=== PATIENT | female | born 1950 | race Caucasian/White ===

== ENCOUNTER 2017-05-12 13:50 | Emergency (ER) | payer MEDICARE ==
[2017-05-12] MEDS ORDERED: NS 0.9% 1000 ML* 1,000 ML IV SCH (15:00)
[2017-05-12 15:13] LABS: Hematocrit 41 % (35-47); Hemoglobin 13.6 g/dl (12.0-16.0); Mean Corpuscular HGB Conc 34 g/dl (31-36); Mean Corpuscular Hemoglobin 29 pg (27-31); Mean Corpuscular Volume 85 fL (80-97); Mean Platelet Volume 10 um3 (7.4-10.4); Red Blood Count 4.77 10^6/ul (4.0-5.4); Red Cell Distribution Width 15 % (10.5-15); White Blood Count 8.5 10^3/ul (3.5-10.8)
[2017-05-12 15:32] LABS: Troponin I 0.03 ng/mL (<0.04)
[2017-05-12 15:33] LABS: Albumin 4.1 g/dL (3.2-5.2); BUN/Creatinine Ratio 15.7 (8-20); C Reactive Protein 3.81 mg/L (< 5.00); Calcium 10.3 mg/dL (8.6-10.3); EGFR African American 88.2 (>60); EGFR Non-African American 68.6 (>60); Globulin 2.7 g/dL (2-4); Magnesium 2.3 mg/dL (1.9-2.7); Potassium 3.6 mmol/L (3.5-5.0); Total Bilirubin 1.1 mg/dL (0.2-1.0); Total Protein 6.8 g/dL (6.4-8.9)
--- NOTE | 2017-05-12 15:38 | RAD ---
HISTORY: Right leg weakness COMPARISONS: November 23, 2003 TECHNIQUE: Multiple contiguous axial CT scans were obtained of the head without intravenous contrast. FINDINGS: HEMORRHAGE/INFARCT: There is no hemorrhage or acute infarct. MASSES/SHIFT: There is no mass or shift. EXTRA-AXIAL SPACES: There are no extra-axial fluid collections. SULCI AND VENTRICLES: There is diffuse and proportional enlargement of the sulci and ventricles. CEREBRUM: There is hypoattenuation of the periventricular and subcortical white matter. There are chronic lacunar infarcts of the left thalamus BRAINSTEM: There are no focal parenchymal abnormalities. CEREBELLUM: There are no focal parenchymal abnormalities. VESSELS: The vessels are grossly normal. PARANASAL SINUSES: The paranasal sinuses are clear. ORBITS: The orbits are unremarkable. BONES AND SOFT TISSUE: No bone or soft tissue abnormalities are noted. OTHER: None IMPRESSION: NO ACUTE INTRACRANIAL PATHOLOGY. DIFFUSE INVOLUTIONAL CHANGE WITH CHRONIC SMALL VESSEL ISCHEMIC CHANGES.
[2017-05-12 16:06] LABS: TSH (Thyroid Stimulating Horm) 1.13 mcIU/mL (0.34-5.60)
[2017-05-12 17:00] LABS: Urine Bacteria 1+ (Absent); Urine Bilirubin Negative (Negative); Urine Glucose Negative (Negative); Urine Nitrite Positive (Negative)
[2017-05-12] MEDS ORDERED: cefTRIAXone(*) 1 GM in NS 0.9% 50 ML* 50 ML IVPB ONE (17:25)
--- NOTE | 2017-05-12 17:36 | ED ---
Zeeshan Jc Alfonso, scribed for Delta Tom MD on 05/12/17 at 1433 . Complex/Multi-Sys Presentation - HPI Summary HPI Summary: This patient is a 66 year old F presenting to [facility] accompanied by , sister, and son with a chief complaint of difficultly walking since over a year ago, worse since 1330 today. She woke up at 0730 today. reports that she was just barely standing and that her ability to walk is going gradually. Son reports she was wobbly. The patient rates the pain 0/10 in severity. Symptoms aggravated by nothing. Symptoms alleviated by nothing. Daughter reports frequent falls (3 this morning in the house). Patient reports her RLE just wont do anything that I think it is going to do. Patient denies abdominal pain, loss of appetite, change in speech, and back pain. - History Of Current Complaint Chief Complaint: EDNeurologicalDeficit Time Seen by Provider: 05/12/17 14:28 Hx Obtained From: Patient, Family/[place] Onset/Duration: Gradual Onset, Worse Since - 1330 today, Other - Lasting a year Timing: Constant Aggravating Factor(s): nothing Alleviating Factor(s): nothing Associated Signs And Symptoms: Positive: Other - Daughter reports frequent falls (3 this morning in the house). Patient reports her RLE just wont do anything that I think it is going to do. Patient denies abdominal pain, loss of appetite, change in speech, and back pain. - Allergies/Home Medications Allergies/Adverse Reactions: Allergies Allergy/AdvReac Type Severity Reaction Status Date / Time Codeine Allergy Intermediate Rash And Verified 10/25/15 19:46 Itching PMH/Surg Hx/FS Hx/Imm Hx Endocrine/Hematology History: Reports: Hx Anticoagulant Therapy - Aspirin Denies: Hx Diabetes, Hx Thyroid Disease Cardiovascular History: Denies: Hx Congestive Heart Failure, Hx Deep Vein Thrombosis, Hx Hypertension , Hx Myocardial Infarction, Hx Pacemaker/ICD Respiratory History: Denies: Hx Asthma, Hx Chronic Obstructive Pulmonary Disease (COPD), Hx Lung Cancer, Hx Pneumonia, Hx Pulmonary Embolism GI History: Denies: Hx Gall Bladder Disease, Hx Gastrointestinal Bleed, Hx Ulcer, Hx Urosepsis History: Denies: Hx Kidney Stones, Hx Renal Disease Neurological History: Reports: Hx CVA - multiple CVAs (two in 2003, 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 lap band surgery Infectious Disease History: No Infectious Disease History: Denies: Hx Clostridium Difficile, Hx Hepatitis, Hx Human Immunodeficiency Virus (HIV), History Other Infectious Disease, Traveled Outside the [place] in Last 30 Days - Family History Known Family History: Positive: Other - Breast cancer - Social History Alcohol Use: Occasionally Alcohol Amount: beer occasionally Substance Use Type: Reports: None Smoking Status (MU): Former Smoker Review of Systems Negative: Fever Positive: Other - Negative loss of appetite. Negative: Abdominal Pain Positive: Other - difficultly walking, frequent falls; negative back pain Neurological: Other - RLE just wont do anything that I think it is going to do. Negative change in speech All Other Systems Reviewed And Are Negative: Yes Physical Exam - Summary Physical Exam Summary: General: well-appearing, no pain distress Skin: warm, color reflects adequate perfusion, dry Head: normal Eyes: EOMI, MARCELO ENT: normal Neck: supple, nontender Respiratory: CTA, breath sounds present Cardiovascular: RRR Abdomen: soft, nontender Bowel: present Musculoskeletal: normal, strength/ROM intact to our exam, patient was not ambulated Neurological: normal, sensory/motor intact to our exam, A&O x3 Psychological: affect/mood appropriate Triage Information Reviewed: Yes Vital Signs On Initial Exam: Initial Vitals Temp Pulse Resp BP Pulse Ox 97.7 F 82 20 141/83 94 05/12/17 13:55 05/12/17 13:55 05/12/17 13:55 05/12/17 13:55 05/12/17 13:55 Vital Signs Reviewed: Yes - Mahnaz Coma Scale Coma Scale Total: 15 Diagnostics - Vital Signs Vital Signs Temp Pulse Resp BP Pulse Ox 05/12/17 14:30 76 14 142/63 96 05/12/17 14:28 79 18 96 05/12/17 14:26 146/60 05/12/17 13:55 97.7 F 82 20 141/83 94 - Laboratory Lab Results: Lab Results 05/12/17 05/12/17 05/12/17 Range/Units 15:00 15:00 15:00 WBC (3.5-10.8) 10^3/ul RBC (4.0-5.4) 10^6/ul Hgb (12.0-16.0) g/dl Hct (35-47) % MCV (80-97) fL MCH (27-31) pg MCHC (31-36) g/dl RDW (10.5-15) % Plt Count (150-450) 10^3/ul MPV (7.4-10.4) um3 Neut % (Auto) (38-83) % Lymph % (Auto) (25-47) % Rooks % (Auto) (1-9) % Eos % (Auto) (0-6) % Baso % (Auto) (0-2) % Absolute Neuts (auto) (1.5-7.7) 10^3/ul Absolute Lymphs (auto) (1.0-4.8) 10^3/ul Absolute Monos (auto) (0-0.8) 10^3/ul Absolute Eos (auto) (0-0.6) 10^3/ul Absolute Basos (auto) (0-0.2) 10^3/ul Absolute Nucleated RBC 10^3/ul Nucleated RBC % INR (Anticoag Therapy) 0.89 (0.89-1.11) APTT 30.6 (26.0-36.3) seconds Sodium 141 (133-145) mmol/L Potassium 3.6 (3.5-5.0) mmol/L Chloride 109 (101-111) mmol/L Carbon Dioxide 29 (22-32) mmol/L Anion Gap 3 (2-11) mmol/L BUN 13 (6-24) mg/dL Creatinine 0.83 (0.51-0.95) mg/dL Est GFR ( Amer) 88.2 (>60) Est GFR (Non-Af Amer) 68.6 (>60) BUN/Creatinine Ratio 15.7 (8-20) Glucose 116 H (70-100) mg/dL Lactic Acid (0.5-2.0) mmol/L Calcium 10.3 (8.6-10.3) mg/dL Magnesium 2.3 (1.9-2.7) mg/dL Total Bilirubin 1.10 H (0.2-1.0) mg/dL AST 20 (13-39) U/L ALT 19 (7-52) U/L Alkaline Phosphatase 94 (34-104) U/L Troponin I 0.03 (<0.04) ng/mL C-Reactive Protein 3.81 (< 5.00) mg/L B-Natriuretic Peptide 51 ( - 100) pg/mL Total Protein 6.8 (6.4-8.9) g/dL Albumin 4.1 (3.2-5.2) g/dL Globulin 2.7 (2-4) g/dL Albumin/Globulin Ratio 1.5 (1-3) Lipase 18 (11.0-82.0) U/L TSH 1.13 (0.34-5.60) mcIU/mL Urine Color Urine Appearance Urine pH (5-9) Ur Specific [place] (1.010-1.030) Urine Protein (Negative) Urine Ketones (Negative) Urine Blood (Negative) Urine Nitrate (Negative) Urine Bilirubin (Negative) Urine Urobilinogen (Negative) Ur Leukocyte Esterase (Negative) Urine WBC (Auto) (Absent) Urine RBC (Auto) (Absent) Ur Squamous Epith Cells (Absent) Calcium Oxalate Crystal (Absent) Amorphous Crystals (Absent) Urine Bacteria (Absent) Urine Glucose (Negative) Urine Ascorbic Acid (Negative) 05/12/17 05/12/17 05/12/17 Range/Units 15:00 15:00 16:02 WBC 8.5 (3.5-10.8) 10^3/ul RBC 4.77 (4.0-5.4) 10^6/ul Hgb 13.6 (12.0-16.0) g/dl Hct 41 (35-47) % MCV 85 (80-97) fL MCH 29 (27-31) pg MCHC 34 (31-36) g/dl RDW 15 (10.5-15) % Plt Count 154 (150-450) 10^3/ul MPV 10 (7.4-10.4) um3 Neut % (Auto) 83.7 H (38-83) % Lymph % (Auto) 8.8 L (25-47) % Rooks % (Auto) 6.7 (1-9) % Eos % (Auto) 0.3 (0-6) % Baso % (Auto) 0.5 (0-2) % Absolute Neuts (auto) 7.1 (1.5-7.7) 10^3/ul Absolute Lymphs (auto) 0.8 L (1.0-4.8) 10^3/ul Absolute Monos (auto) 0.6 (0-0.8) 10^3/ul Absolute Eos (auto) 0 (0-0.6) 10^3/ul Absolute Basos (auto) 0 (0-0.2) 10^3/ul Absolute Nucleated RBC 0 10^3/ul Nucleated RBC % 0 INR (Anticoag Therapy) (0.89-1.11) APTT (26.0-36.3) seconds Sodium (133-145) mmol/L Potassium (3.5-5.0) mmol/L Chloride (101-111) mmol/L Carbon Dioxide (22-32) mmol/L Anion Gap (2-11) mmol/L BUN (6-24) mg/dL Creatinine (0.51-0.95) mg/dL Est GFR ( Amer) (>60) Est GFR (Non-Af Amer) (>60) BUN/Creatinine Ratio (8-20) Glucose (70-100) mg/dL Lactic Acid 0.8 (0.5-2.0) mmol/L Calcium (8.6-10.3) mg/dL Magnesium (1.9-2.7) mg/dL Total Bilirubin (0.2-1.0) mg/dL AST (13-39) U/L ALT (7-52) U/L Alkaline Phosphatase (34-104) U/L Troponin I (<0.04) ng/mL C-Reactive Protein (< 5.00) mg/L B-Natriuretic Peptide ( - 100) pg/mL Total Protein (6.4-8.9) g/dL Albumin (3.2-5.2) g/dL Globulin (2-4) g/dL Albumin/Globulin Ratio (1-3) Lipase (11.0-82.0) U/L TSH (0.34-5.60) mcIU/mL Urine Color Yellow Urine Appearance Cloudy Urine pH 6.0 (5-9) Ur Specific [place] 1.020 (1.010-1.030) Urine Protein Negative (Negative) Urine Ketones Trace H (Negative) Urine Blood Negative (Negative) Urine Nitrate Positive H (Negative) Urine Bilirubin Negative (Negative) Urine Urobilinogen Negative (Negative) Ur Leukocyte Esterase Trace H (Negative) Urine WBC (Auto) 1+(6-10/hpf) H (Absent) Urine RBC (Auto) Absent (Absent) Ur Squamous Epith Cells Present H (Absent) Calcium Oxalate Crystal Present H (Absent) Amorphous Crystals Present H (Absent) Urine Bacteria 1+ H (Absent) Urine Glucose Negative (Negative) Urine Ascorbic Acid * H (Negative) Result Diagrams: 05/12/17 15:00 05/12/17 15:00 Lab Statement: Any lab studies that have been ordered have been reviewed, and results considered in the medical decision making process. - CT Brain CT Interpretation Completed By: Radiologist - NO ACUTE INTRACRANIAL PATHOLOGY. DIFFUSE INVOLUTIONAL CHANGE WITH CHRONIC SMALL VESSEL ISCHEMIC CHANGES. ED physician has reviewed this radiology report and agrees. - EKG 1443 Cardiac Rate: NL - BPM 70 EKG Rhythm: Sinus Rhythm EKG Interpretation: Q waves in III and AVF. Normal ST. No ectopy. Complex Multi-Symp Course/Dx Course Of Treatment: DISCUSSED RESULTS WITH PATIENT/FAMILY. WILL TREAT UTI. F/ U WITH PMD. DISUSSED WITH DR. EVERETT, NEUROLOGY. WILL F/U WITH HIM FOR FURTHER EVALUATION OF MULTIPLE FALLS. SOCIAL WORK CONSULTATION PLACED FOR MORE HELP AT HOME. - Diagnoses Provider Diagnoses: Weakness of right leg, UTI (urinary tract infection), Frequent falls - Physician Notifications Discussed Care Of Patient With: Akbar Everett Time Discussed With Above Provider: 17:01 Instructed by Provider To: Other - Consulted Dr. Everett (neurologist) regarding the patient. Discharge - Discharge Plan Condition: Stable Disposition: HOME Prescriptions: Sulfamethox/Trimethoprim DS* [Bactrim DS 800/160 TAB*] 1 tab PO BID #20 tab Patient Education Materials: Weakness (ED), Fall Prevention for Older Adults ( ED), Urinary Tract Infection in Women (ED) Referrals: Akbar Everett MD [Medical Doctor] - Ezequiel Ruggiero MD [Primary Care Provider] - Additional Instructions: FOLLOW UP WITH YOUR PRIMARY CARE DOCTOR AND NEUROLOGY, DR EVERETT. A SOCIAL WORK REFERRAL WAS PLACED WHILE YOU WERE IN THE EMERGENCY DEPARTMENT. RETURN TO THE EMERGENCY DEPARTMENT FOR ANY WORSENING OF YOUR CONDITION OR QUESTIONS OR CONCERNS. The documentation as recorded by the Zeeshan kennedy Alfonso accurately reflects the service I personally performed and the decisions made by me, Delta Tom MD.
[2017-05-12 17:52] VITALS: BP 144/102
== END 2017-05-12 17:51 | disposition home or self-care (01) ==
LOC: ED 13:50
DX: R53.1 Weakness (principal); N39.0 Urinary tract infection, site not specified; Z91.81 History of falling
CPT/HCPCS: 36415; 70450; 80053; 81003; 81015; 83605; 83690; 83735; 83880; 84443; 84484; 85025; 85610; 85730; 86140; 87077; 87086; 87186; 93005; 96360; 99283; J0696

== ENCOUNTER 2018-02-25 17:11 | Emergency (ER) | payer MEDICARE ==
--- OUTSIDE RECORDS SUMMARY | 2018-02-25 17:17 | XMS REPORT ---
:1950 External Reference #:[id number] Author Organization [facility] Address [address] [place] [address] [place] [address] Phone [phone] Care Team Providers Name Role Phone Ezequiel Ruggiero MD Primary Care Physician Unavailable Payers Type Date Identification Numbers Payment Provider Subscriber Health Maintenance Policy Number: [employer] Tiera Vargas (HMO) [id number] Solutions Group Number: [id number] [address] [id number] PayID: [id number] [place] [address] Problems Date Description Provider Status Onset: 08/25/2017 Dementia Akbar Everett MD Active Onset: 05/21/2017 Urinary incontinence Akbar Everett MD Active Onset: 05/21/2017 Minimal cognitive impairment Akbar Everett MD Active Onset: 05/21/2017 Abnormal gait Akbar Everett MD Active Family History Date Family Member(s) Problem(s) Comments General Breast Cancer Mother Cancer Social History Type Date Description Comments Marital Status 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 ETOH Use Occasionally consumes alcohol Smoking Patient is a former smoker Recreational Drug Use Denies Drug Use Daily Caffeine Does Not Consume Caffeine Daily Caffeine Consumes on average 1 cup of regular coffee per day Exercise Type/Frequency Exercises rarely Allergies, Adverse Reactions, Alerts Date Description Reaction Status Severity Comments 05/21/2017 Codeine active rash Medications Medication Date Status Form Strength Qnty SIG Indications Ordering Provider Electric 11/06/ Active Misc 1units for daily Akbar Ashley 2017 use Osbaldo Everett MD Namendevelyne 10/23/ Active Tablets 10mg 60tabs take one F02.81 Akbar 2018 tablet by marina Everett every morning and every night Sinemet 08/25/ Active Tablets 25-100mg 360tab 2 tablet by Akbar oYu s mouth in am Karlos, and 1 in pm and 1 in evening Atorvastatin / Active Tablets 20mg 1 qd [place], Calcium 0000 MD Ezequiel Escitalopram / Active Tablets 10mg 1 qd [place], Oxalate 0000 MD Ezequiel Aspirin / Active Tablets DR 325mg take 1 by Unknown 0000 mouth once a day Vitamin B / Active Tablets 1 by mouth Unknown Complex 0000 every day Bupropion HCL / Active Tablets ER 150mg once daily Unknown ER (XL) 0000 24HR in the morning with food Vitamin D / Active Tablets 1000Unit 2 every day Unknown (Cholecalcifer 0000 ol) Preservision / Active Capsules i tab by Unknown Areds 0000 mouth once a day Namenda 09/22/ Hx Tablets 5(28)-10(2 49tabs Use F02.81 Akbar Titration Sammy 2017 - 1)mg titration Karlos, 10/23/ pack as MD You directed Vital Signs Date Vital Result Comment 01/27/2018 Height 62 inches 5'2" Weight 199.00 lb Heart Rate 78 /min BP Systolic Sitting 152 mmHg BP Diastolic Sitting 82 mmHg BMI (Body Mass Index) 36.4 kg/m2 12/02/2017 Height 62 inches 5'2" Weight 200.12 lb Heart Rate 78 /min BP Systolic Sitting 140 mmHg BP Diastolic Sitting 88 mmHg BMI (Body Mass Index) 36.6 kg/m2 10/29/2017 Height 62 inches 5'2" Weight 203.25 lb Heart Rate 78 /min BP Systolic 126 mmHg BP Diastolic 86 mmHg BMI (Body Mass Index) 37.2 kg/m2 09/22/2017 Heart Rate 80 /min BP Systolic 128 mmHg BP Diastolic 88 mmHg 09/01/2017 Heart Rate 80 /min BP Systolic Sitting 122 mmHg BP Diastolic Sitting 78 mmHg 08/25/2017 Heart Rate 80 /min BP Systolic 126 mmHg BP Diastolic 80 mmHg 08/11/2017 Height 62 inches 5'2" Weight 200.00 lb Heart Rate 63 /min BP Systolic Sitting 132 mmHg BP Diastolic Sitting 78 mmHg Pain Level 0 BMI (Body Mass Index) 36.6 kg/m2 07/21/2017 Height 62 inches 5'2" Weight 205.00 lb Heart Rate 76 /min BP Systolic Sitting 122 mmHg BP Diastolic Sitting 86 mmHg BMI (Body Mass Index) 37.5 kg/m2 05/21/2017 Height 62 inches 5'2" Weight 204.00 lb Heart Rate 78 /min BP Systolic Sitting 126 mmHg BP Diastolic Sitting 80 mmHg BMI (Body Mass Index) 37.3 kg/m2 Results Test Date Test Result H/L Range Note Laboratory test finding 08/25/2017 CSF Glucose 60 mg/dL 40-70 1, 2 CSF Protein 45 mg/dL 15-45 1, 3 CSF Culture & 08/25/2017 CSF Culture Gram SEE RESULT BELOW 1, 4 Sensitivity Stain Laboratory test 08/25/2017 RPR CSF Negative Negative 1, 5 finding CSF Cell Count 08/25/2017 Body Fluid Source Cerebral Spinal 1 Body Fluid Appearance Clear 1 Body Fluid Color Colorless 1 CSF Tube # 3 1 Body Fluid Volume 3.5 mL 1 Body Fluid WBC 1 /mcL 1 Body Fluid RBC 6 /mcL 1 Body Fluid Lymph 51 % 1 Body Fluid White 49 % 1 Body Fluid Total Cells Counted 35 1 Fluid Reviewed By MD (SEE NOTE) 1, 6 Comp Metabolic Panel 07/21/2017 Sodium 138 mmol/L 133-145 Potassium 4.5 mmol/L 3.5-5.0 Chloride 105 mmol/L 101-111 Co2 Carbon Dioxide 29 mmol/L 22-32 Anion Gap 4 mmol/L 2-11 Glucose 99 mg/dL 70-100 Blood Urea Nitrogen 14 mg/dL 6-24 Creatinine 0.73 mg/dL 0.51-0.95 BUN/Creatinine Ratio 19.2 8-20 Calcium 10.5 mg/dL High 8.6-10.3 Total Protein 6.4 g/dL 6.4-8.9 Albumin 4.2 g/dL 3.2-5.2 Globulin 2.2 g/dL 2-4 Albumin/Globulin Ratio 1.9 1-3 Total Bilirubin 1.40 mg/dL High 0.2-1.0 Alkaline Phosphatase 111 U/L High 34-104 Alt 20 U/L 7-52 Ast 17 U/L 13-39 Egfr Non- 79.5 >60 Egfr 102.3 >60 7 Laboratory test finding 07/21/2017 TSH (Thyroid Stim Horm) 1.20 mcIU/mL 0.34-5.60 Vitamin B12 713 pg/mL 180-914 8 Folic Acid (Folate) 12.41 ng/mL >3.99 Hemoglobin A1c (Glyco HGB) 5.5 % 4.0-5.6 9 1 LARGE VOLUME LUMBAR PUNCTURE 2 "LARGE VOLUME LUMBAR PUNCTURE" 3 "LARGE VOLUME LUMBAR PUNCTURE" 4 SEE RESULT BELOW Name: TIERA FORREST : [address]: Akbar Everett MD Acct: [id number] Unit: [id number] AGE: 66 Location: SP Re08/25/17 SEX: F Status: REG REF SPEC: [id number] JUSTIN: 08/25/17-[address] [facility] [address]: Akbar Everett MD REQ: [id number] RECD: 08/25/17 STATUS: LC OLGUIN DR: Ezequiel Ruggiero MD _ SOURCE: CSF SPDESC: ORDERED: CSF Cult/GS COMMENTS: "LARGE VOLUME LUMBAR PUNCTURE" Procedure Result Reported Site CSF Gram Stain Final 08/26/17- 23 ML 1+ Epithelial Cells No Neutrophils Observed No Organisms Seen Preparation By Cytospin Smear CSF Culture Final 08/29/17- 08 ML No Growth Day 4 * ML - MAIN LAB (PSC1) . END OF REPORT * ML=Testing performed at Main Lab DEPARTMENT OF PATHOLOGY, [address] [place] [address] Jung Greenfield M.D. Director [facility] # [id number] 5 Test Performed by: [facility] [place] [address] 6 No evidence of an acute inflammatory response. No evidence of malignancy. Reviewed by Mera Genao MD 7 Because ethnic data is not always readily available, this report includes an eGFR for both -Americans and non- Americans. The National Kidney Disease Education Program (NKDEP) does not endorse the use of the MDRD equation for patients that are not between the ages of 18 and 70, are , have extremes of body size, muscle mass, or nutritional status, or are non- or non-. According to the National Kidney Foundation, irrespective of diagnosis, the stage of the disease is based on the level of kidney function: Stage Description GFR(mL/min/1.73 m(2)) 1 Kidney damage with normal or decreased GFR 90 2 Kidney damage with mild decrease in GFR 60-89 3 Moderate decrease in GFR 30-59 4 Severe decrease in GFR 15-29 5 Kidney failure <15 (or dialysis) 8 Normal Range 180 to 914 Indeterminate Range 145 to 180 Deficient Range <145 9 Therapeutic target for the treatment of diabetes mellitus patients is <7% HBA1C, and in selective patients <6.0%. Please refer to [place] Diabetes Association diabetic care guidelines for further information. Procedures Date CPT Code Description Status 08/04/2017 08632 Nerve Conduction 05-06 Studies Completed 08/04/2017 53392 Needle Electromyography Complete, Five Or More Muscles Completed Studied Encounters Type Date Location Provider CPT E/M Dx Office Visit 12/02/2017 [facility] [address] R26.89 11:00a F02.81 F03.90 Office Visit 10/29/2017 10:00a [facility] [place] [address] R26.89 F02.81 F03.90 Office Visit 09/22/2017 9:45a [facility] [place] [address] R26.89 F02.81 F03.90 Office Visit 09/01/2017 8:15a [facility] [address] R26.89 F02.81 F03.90 R29.6 Office Visit 08/25/2017 11:45a [facility] [address] R26.89 F02.81 F03.90 Office Visit 08/11/2017 3:30p [facility] [place] [address]015 R26.89 Of Candi Garcia MD G31.84 R32 G93.89 Office Visit 07/21/2017 9:15a [facility] [address] R26.89 G31.84 Office Visit 05/21/2017 1:00p [facility] [address] R26.89 G31.84 R32 Plan of Care Future Appointment(s):05/31/2018 1:45 pm - Akbar Everett MD at [facility]/27/2018 - Akbar Everett MDR26.89 Other abnormalities of gait and mobilityComments:Tiera has had worsening walking problems with increased falls and has had physical therapy which did not improve significantly her ability to walk. He has not been able to use a manual wheelchair because she has difficulty propelling it. A Rabago BuzzaroundXL, model#[id number] serial #[id number] would solve her problems of mobility.Follow up:4 MONTHS
[2018-02-25 17:27] VITALS: BP 154/88
--- NOTE | 2018-02-25 18:05 | UC ---
Back Pain HPI - HPI Summary HPI Summary: Caveat: Unable to obtain complete HPI due to dementia The pt is a 67 y/o female accompanied by her son presenting to c/o R upper back pain s/p a fall in her bedroom at 13:00 today. The pain is rated 7/10 She usually uses a walker due to walking difficulties. The pt does not remember if she hit her head during the fall. She denies syncope ,LE pain , knee pain, CP, abd pain , wrist and arm pain, and neck pain. This is scribe Adela Wood documenting for attending Dr. Negro Jc, Dr. Tom , personally performed the services described in this documentation as scribed in my presence and it is both accurate and complete. 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 Onset/Duration: Sudden Onset - 5 hrs ago, Still Present, Worse Since - 5 hrs ago Severity Initially: Severe Severity Currently: Moderate Pain Intensity: 7 Pain Scale Used: 0-10 Numeric Back Pain: Is Discrete @ - R Upper back Aggravating Factor(s): Walking Associated Signs And Symptoms: Positive: Negative - syncope ,LE pain , knee pain, CP, abd pain , wrist and arm pain, neck pain, Other - Positive: R upper backpain - Allergies/Home Medications Allergies/Adverse Reactions: Allergies Allergy/AdvReac Type Severity Reaction Status Date / Time codeine Allergy Rash And Verified 02/25/18 17:28 Itching PMH/Surg Hx/FS Hx/Imm Hx Previously Healthy: No Neurological History: Dementia Other History Of: Anticoagulant Therapy - Aspirin Negative For: HIV, Hepatitis B, Hepatitis C - Surgical History Surgical History: Yes Surgery Procedure, Year, and Place: CHOLECYSTECTOMY. LAP BAND SURGERY - Family History Known Family History: Positive: Other - Breast cancer - Social History Occupation: Employed Full-time Lives: With Family Alcohol Use: Rare Alcohol Amount: beer occasionally Substance Use Type: None Smoking Status (MU): Former Smoker Review of Systems Constitutional: Negative - fever ENT: Negative - Neck pain Cardiovascular: Negative - CP Gastrointestinal: Negative - Abd pain Musculoskeletal: Negative - wrist and arm pain, Other: - Positive: R upper back pain Neurological: Negative - syncope All Other Systems Reviewed And Are Negative: Yes Physical Exam - Summary Physical Exam Summary: General: well-appearing, demented patient, no pain distress Skin: warm, color reflects adequate perfusion, dry Head: normal Eyes: EOMI, MARCELO ENT: normal Neck: supple, nontender Respiratory: CTA, breath sounds present, tender to palpation of the R posterior ribs Cardiovascular: RRR Abdomen: soft, nontender Bowel: present Musculoskeletal: Tender to palpation in the mid to lower thoracic spine, strength/ROM intact Neurological: sensory/motor intact, A&O x3 Psychological: affect/mood appropriate Triage Information Reviewed: Yes Vital Signs: Initial Vital Signs Temp 98.2 F 02/25/18 17:21 Pulse 67 02/25/18 17:21 Resp 18 02/25/18 17:21 BP 154/88 02/25/18 17:21 Pulse Ox 98 02/25/18 17:21 Vital Signs Reviewed: Yes Diagnostics - Radiology CT Spine Thoracic Radiology Interpretation Completed By: Radiologist - IMPRESSION: #. Chance- type 3 column fracture at T9 with mild associated paravertebral hematoma as described. No visualized epidural hematoma evident however assessment of the epidural space is limited with CT due to artifact from the bony canal. #. Predisposing decreased bone density and diffuse ankylosis of the thoracic spine facet joints. #. Trace bilateral dependent pleural effusions. #. Negative for pneumothorax. The ED physician has reiewed this radiology report Chest CT Radiology Interpretation Completed By: Radiologist - IMPRESSION: #. Chance-type 3 column fracture at T9 with mild associated paravertebral hematoma as described. No visualized epidural hematoma evident however assessment of the epidural space is limited with CT due to artifact from the bony canal. #. Predisposing decreased bone density and diffuse ankylosis of the thoracic spine facet joints. #. Trace bilateral dependent pleural effusions. #. Negative for pneumothorax. The ED physician has reviewed this radiology report. Re-Evaluation - Re-Evaluation First Eval Re-Evaluation Time: 20:17 Change: Improved - The ambulance to transfer the pt to [facility] has been called. Back Pain Course/Dx - Course Course Of Treatment: DISCUSSED RESULTS OF CT WITH THE PATIENT AND FAMILY. DISCUSSED WITH NEUROSURGERY, DR BUTTS, WHO RECOMMENDED SPINAL PRECAUTIONS AND AMBULANCE TRANSPORT TO ED FOR FURTHER EVALUATION AND ADMISSION. - Differential Dx/Diagnosis Provider Diagnoses: T9 CHANCE FRACTURE - Physician Notifications Discussed Care With: Lam Garcia Time Discussed With Above Provider: 19:30 Instructed by Provider To: Transfer - The provider recommended transferrring the pt to [facility]. Discharge - Sign-Out/Discharge Documenting (check all that apply): Patient Departure - Discharge Plan Condition: Stable Disposition: TRANS HIGHER LVL OF CARE FAC Referrals: Ezequiel Ruggiero MD [Primary Care Provider] - - Billing Disposition and Condition Condition: STABLE Disposition: Trans Higher Lvl of Care Fac
[2018-02-25] MEDS ORDERED: Acetaminophen TAB* 325 MG PO ONE (18:06)
--- NOTE | 2018-02-25 19:04 | RAD ---
INDICATION: Thoracic back pain and RIGHT posterior rib pain following a fall. Denies shortness of breath. COMPARISON: No relevant prior exams available on the [facility] PACS for comparison. TECHNIQUE: Multidetector CT images were obtained from the lung apices to the upper abdomen. Evaluation of the viscera is limited without IV contrast. Multiplanar reformatted images of the thoracic spine with bone algorithm. REPORT: No focal pulmonary lesion or compelling alveolar consolidation. Trace bilateral dependent pleural effusions. Negative for pneumothorax. Negative for thoracic lymphadenopathy. Negative for cardiomegaly or pericardial effusion. Normal diameter thoracic aorta with mild atherosclerotic plaque. Post cholecystectomy. Post bariatric surgery with gastric band. Bone density appears decreased throughout. There is a horizontal fracture involving the anterior, middle, and posterior columns of the T9 vertebral body with associated approximate 0.5 cm cephalocaudal distraction between the inferior endplate of the T8 vertebral body and the superior endplate of the T9 vertebral body. Negative for associated anterior, posterior, or lateral displacement. Associated small volume of anterior and bilateral paravertebral hematoma. No visualized epidural hematoma evident however assessment of the epidural space is limited with CT due to artifact from the bony canal. No additional thoracic spine fractures evident. Diffuse ankylosis of the thoracic spine facet joints. IMPRESSION: #. Chance-type 3 column fracture at T9 with mild associated paravertebral hematoma as described. No visualized epidural hematoma evident however assessment of the epidural space is limited with CT due to artifact from the bony canal. #. Predisposing decreased bone density and diffuse ankylosis of the thoracic spine facet joints. #. Trace bilateral dependent pleural effusions. #. Negative for pneumothorax. #. Results discussed with Dr. Madrigal 02/25/2018 7:02 PM EDT
--- NOTE | 2018-02-25 19:04 | RAD ---
INDICATION: Thoracic back pain and RIGHT posterior rib pain following a fall. Denies shortness of breath. COMPARISON: No relevant prior exams available on the [facility] PACS for comparison. TECHNIQUE: Multidetector CT images were obtained from the lung apices to the upper abdomen. Evaluation of the viscera is limited without IV contrast. Multiplanar reformatted images of the thoracic spine with bone algorithm. REPORT: No focal pulmonary lesion or compelling alveolar consolidation. Trace bilateral dependent pleural effusions. Negative for pneumothorax. Negative for thoracic lymphadenopathy. Negative for cardiomegaly or pericardial effusion. Normal diameter thoracic aorta with mild atherosclerotic plaque. Post cholecystectomy. Post bariatric surgery with gastric band. Bone density appears decreased throughout. There is a horizontal fracture involving the anterior, middle, and posterior columns of the T9 vertebral body with associated approximate 0.5 cm cephalocaudal distraction between the inferior endplate of the T8 vertebral body and the superior endplate of the T9 vertebral body. Negative for associated anterior, posterior, or lateral displacement. Associated small volume of anterior and bilateral paravertebral hematoma. No visualized epidural hematoma evident however assessment of the epidural space is limited with CT due to artifact from the bony canal. No additional thoracic spine fractures evident. Diffuse ankylosis of the thoracic spine facet joints. IMPRESSION: #. Chance-type 3 column fracture at T9 with mild associated paravertebral hematoma as described. No visualized epidural hematoma evident however assessment of the epidural space is limited with CT due to artifact from the bony canal. #. Predisposing decreased bone density and diffuse ankylosis of the thoracic spine facet joints. #. Trace bilateral dependent pleural effusions. #. Negative for pneumothorax. #. Results discussed with Dr. Madrigal 02/25/2018 7:02 PM EDT
== END 2018-02-25 20:28 | disposition short-term general hospital (02) ==
LOC: UCEAST 17:11
DX: S22.079A Unspecified fracture of T9-T10 vertebra, initial encounter for closed fracture (principal); W19.XXXA Unspecified fall, initial encounter; Y93.9 Activity, unspecified; Y92.003 Bedroom of unspecified non-institutional (private) residence as the place of occurrence of the external cause; F03.90 Unspecified dementia, unspecified severity, without behavioral disturbance, psychotic disturbance, mood disturbance, and anxiety
CPT/HCPCS: 71250; 72128; 99213; A9270-GY; G0463

== ENCOUNTER 2018-02-25 20:49 | Inpatient (IN) | payer MEDICARE ==
--- NOTE | 2018-02-25 21:29 | ED ---
Back Pain - HPI Summary HPI Summary: This is scribe Marko Sexton documenting for attending Hector Mon MD. LEVEL 5 CAVEAT: Hx unobtainable from patient due to dementia. Hx obtained from her family. This patient is a 67 year old F with a PMHx of dementia BIBA from [facility] to [facility] with a chief complaint of a back injury since 11:00 today. [facility] reports a cervical fx. Patient fell backwards at home in her bedroom while moving things around. The pain has worsened since this morning. Patient reports ecchymosis on R side of face. Patient denies LOC and abdominal pain. She has a PMHx of dementia, difficulty ambulating, several strokes, and issues with her spine. I, Dr. Mon, personally performed the services described in this documentation as scribed in my presence and it is both accurate and complete. 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 Onset/Duration: Sudden Onset, Still Present, Worse Since - 11:00 today Onset/Duration: Started Hours Ago - 11:00 today, Still Present Timing: Constant Pain Intensity: 0 - Allergies/Home Medications Allergies/Adverse Reactions: Allergies Allergy/AdvReac Type Severity Reaction Status Date / Time codeine Allergy Rash And Verified 02/25/18 17:28 Itching PMH/Surg Hx/FS Hx/Imm Hx Endocrine/Hematology History: Reports: Hx Anticoagulant Therapy - Aspirin Denies: Hx Diabetes, Hx Thyroid Disease Cardiovascular History: Denies: Hx Congestive Heart Failure, Hx Deep Vein Thrombosis, Hx Hypertension , Hx Myocardial Infarction, Hx Pacemaker/ICD Respiratory History: Denies: Hx Asthma, Hx Chronic Obstructive Pulmonary Disease (COPD), Hx Lung Cancer, Hx Pneumonia, Hx Pulmonary Embolism GI History: Denies: Hx Gall Bladder Disease, Hx Gastrointestinal Bleed, Hx Ulcer, Hx Urosepsis History: Denies: Hx Kidney Stones, Hx Renal Disease Sensory History: Denies: Hx Hearing Aid Neurological History: Reports: Hx CVA - multiple CVAs (two in 2003, 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 LAP BAND SURGERY Infectious Disease History: No Infectious Disease History: Denies: Hx Clostridium Difficile, Hx Hepatitis, Hx Human Immunodeficiency Virus (HIV), History Other Infectious Disease, Traveled Outside the [place] in Last 30 Days - Family History Known Family History: Positive: Other - Breast cancer - Social History Lives: With Family Alcohol Use: Rare Alcohol Amount: beer occasionally Substance Use Type: Reports: None Smoking Status (MU): Former Smoker Review of Systems Negative: Abdominal Pain Positive: Other - Back pain, ecchymosis on R side of face Negative: Syncope All Other Systems Reviewed And Are Negative: No Physical Exam - Summary Physical Exam Summary: LEVEL 5 CAVEAT: Completion of physical exam limited due to dementia Appearance: Well-appearing, Well-nourished, lying in bed comfortable Skin: Warm, dry, no obvious rash Eyes: sclera anicteric, no conjunctival pallor ENT: mucous membranes moist Neck: deferred Respiratory: No signs of respiratory distress Cardiovascular: Appears well perfused, pulses are nml Abdomen: deferred Back: deferred due to known thoracic injury Musculoskeletal: Moving all 4 extremities without obvious discomfort Neurological: Awake and alert, mentation is normal, speech is fluent and appropriate Psychiatric: affect is normal, does not appear anxious or depressed Triage Information Reviewed: Yes Vital Signs On Initial Exam: Initial Vitals Temp Pulse Resp BP Pulse Ox 97.0 F 61 18 193/72 97 02/25/18 20:53 02/25/18 20:53 02/25/18 20:53 02/25/18 20:53 02/25/18 20:53 Vital Signs Reviewed: Yes Diagnostics - Vital Signs Vital Signs Temp Pulse Resp BP Pulse Ox 02/25/18 20:53 97.0 F 61 18 193/72 97 - Laboratory Result Diagrams: 03/03/18 05:09 03/03/18 05:09 Lab Statement: Any lab studies that have been ordered have been reviewed, and results considered in the medical decision making process. - CT CT Cervical Spine Without Intravenous Contrast CT Interpretation Completed By: Radiologist - 1. No acute fracture identified. 2. Multilevel spondylotic changes of the visualized spine, with large posterior osteophyte at T1-T2 causing moderate osseous canal narrowing. ED Physician has reviewed this imaging report. CT Lumbar Spine Without Intravenous Contrast CT Interpretation Completed By: Radiologist - 1. No acute findings. 2. Other chronic findings, as above. ED Physician has reviewed this imaging report. Back Pain Course/Dx - Diagnoses Provider Diagnoses: Thoracic spine fracture - Provider Notifications Discussed Care Of Patient With: Lam Garcia - Neurosurgery Time Discussed With Above Provider: 22:45 Instructed by Provider To: Other - Dr. Garcai will offer surgery to her tomorrow. Keep her in position of comfort tonight. Discharge - Sign-Out/Discharge Documenting (check all that apply): Patient Departure - Discharge Plan Condition: Guarded Disposition: ADMITTED TO [facility] - Billing Disposition and Condition Condition: GUARDED Disposition: Admitted to [facility] Consult Consult: 23:30 Spoke to Cameron Slade II, MD who will admit the patient.
[2018-02-25] MEDS ORDERED: LORazepam INJ* 2 MG/ML 1 ML VIAL IV PUSH ONE (21:43)
[2018-02-25 21:52] LABS: ABS Basophils 0 10^3/ul (0-0.2); ABS Eosinophils 0 10^3/ul (0-0.6); ABS Lymphocytes 1.2 10^3/ul (1.0-4.8); ABS Monocytes 0.5 10^3/ul (0-0.8); ABS Neutrophils 7.8 10^3/ul (1.5-7.7); ABS Nucleated RBC 0 10^3/ul; Eosinophil % 0.3 % (0-6); Hematocrit 42 % (35-47); Hemoglobin 14.3 g/dl (12.0-16.0); Lymphocyte % 12.2 % (25-47); Mean Corpuscular HGB Conc 34 g/dl (31-36); Mean Corpuscular Hemoglobin 30 pg (27-31); Mean Corpuscular Volume 87 fL (80-97); Mean Platelet Volume 10.1 um3 (7.4-10.4); Nucleated Red Blood Cells % 0; Platelet Count 148 10^3/ul (150-450); Red Blood Count 4.84 10^6/ul (4.00-5.40); Red Cell Distribution Width 15 % (10.5-15); White Blood Count 9.6 10^3/ul (3.5-10.8)
[2018-02-25 22:10] LABS: EGFR Non-African American 76.8 (>60)
[2018-02-25 22:30] LABS: Urine Appearance Cloudy; Urine Blood Negative (Negative); Urine Color Yellow; Urine Ketones Negative (Negative); Urine Protein Negative (Negative); Urine Red Blood Cell 2+(6-10/hpf) (Absent); Urine Specific Gravity 1.006 (1.010-1.030); Urine Urobilinogen Negative (Negative); Urine White Blood Cell 2+(11-20/hpf) (Absent)
--- NOTE | 2018-02-26 01:28 | HP ---
H&P (Free Text) History and Physical: PCP: Vanessa Ruggiero MD Date/Time: 02/26/2018 0210 CC: fall w/ back pain HPI: Mrs Forrest is a 67YO female HX Parkinsonism, mild dementia, CVA x3, frequent falls, depression/anxiety who recently moved into the area. She was at home ~1530 using her walker while arranging her room when she lost her balance falling backwards and experiencing immediate mid-back pain. She denies LOC or head impact. She initially declined to come for evaluation, but conceded when her pain did not improve after ~2hours. She presented to [facility] where a CT L-spine WO revealed a Chance type 3 FX of T9 prompting referral to [facility] for neurosurgical consultation. Subsequent CT C- & L-spine showed no acute finding. Steve Garcia MD neurosurgery has discussed the option of surgery with the family & will continue to follow. Mrs Forrest is currently fairly sedated from 1mg lorazepam given in ED and as such this history is obtained from her son. She has had no complaint of chest pain or exertional dyspnea in the past 3 months. PMedHx Parkinsonism mild dementia CVA x3 frequent falls depression/anxiety Ambulatory Orders Aspirin 325 mg PO DAILY 01/22/13 Simvastatin 20 mg PO DAILY 01/22/13 Escitalopram Oxalate [Lexapro] 10 mg PO DAILY 10/25/15 BuPROPion XL* [Bupropion XL*] 150 mg PO DAILY 02/26/18 Carbidopa/Levodopa [Carbidopa-Levodopa 25-100 Tab] 25 - 100 mg PO TID 02/26/18 Memantine HCl 10 mg PO BID 02/26/18 Allergies codeine Allergy (Verified 02/25/18 17:28) Rash And Itching PSurgHx cholecystectomy SocHx: former smoker w/~ 25PYHX, <3 beers/wk, no recreational drugs; lives with her & son, uses a walker to ambulate; code status deferred until patient able to participate FamHx: reviewed & non-contributory to presentation ROS: as above, otherwise reviewed and all were negative vitals: Vital Signs Temp 36.1 C 02/25/18 20:53 Pulse 59 02/26/18 03:06 Resp 18 02/25/18 22:06 BP 159/61 02/26/18 03:06 Pulse Ox 97 02/26/18 03:06 Intake & Output 02/25/18 02/25/18 02/26/18 11:59 23:59 11:59 Weight 90.718 kg Constitutional: NAD, normally developed, obese white female HEENM: atraumatic; sclera/conjunctiva: anicteric/clear; oropharynx: clear, mucosa moist Neck: soft tissue: no tenderness; bones: non-tender; thyroid: normal Pulmonary: clear to auscultation bilaterally, good aeration, no accessory muscle use CV: RR/RR, normal S1S2, no carotid bruit, no jugular venous distention, 2+ B DP/ PT, no edema Abdominal: soft, non-distended, non-tender, no rebound/guarding/rigidity, normoactive bowel sounds, no hepatosplenomegaly or masses, no costovertebral angle tenderness Musculoskeletal: general: grossly intact, non-tender; gait: currently on bedrest Integumental: normal appearance and texture of exposed skin Psychiatric orientation: somnolent affect: fatigued mood: acquiescent eye contact: absent content: lightly rouses during exam, does not speak Testing: Lab Results 02/25/18 02/25/18 02/25/18 Range/Units 21:46 21:46 21:46 WBC 9.6 (3.5-10.8) 10^3/ul RBC 4.84 (4.00-5.40) 10^6/ul Hgb 14.3 (12.0-16.0) g/dl Hct 42 (35-47) % MCV 87 (80-97) fL MCH 30 (27-31) pg MCHC 34 (31-36) g/dl RDW 15 (10.5-15) % Plt Count 148 L (150-450) 10^3/ul MPV 10.1 (7.4-10.4) um3 Neut % (Auto) 81.6 (38-83) % Lymph % (Auto) 12.2 L (25-47) % [place] % (Auto) 5.5 (0-7) % Eos % (Auto) 0.3 (0-6) % Baso % (Auto) 0.4 (0-2) % Absolute Neuts (auto) 7.8 H (1.5-7.7) 10^3/ul Absolute Lymphs (auto) 1.2 (1.0-4.8) 10^3/ul Absolute Monos (auto) 0.5 (0-0.8) 10^3/ul Absolute Eos (auto) 0 (0-0.6) 10^3/ul Absolute Basos (auto) 0 (0-0.2) 10^3/ul Absolute Nucleated RBC 0 10^3/ul Nucleated RBC % 0 INR (Anticoag Therapy) 0.98 (0.77-1.02) APTT (26.0-36.3) seconds Sodium 140 (135-145) mmol/L Potassium 3.8 (3.5-5.0) mmol/L Chloride 105 (101-111) mmol/L Carbon Dioxide 28 (22-32) mmol/L Anion Gap 7 (2-11) mmol/L BUN 10 (6-24) mg/dL Creatinine 0.75 (0.51-0.95) mg/dL Est GFR ( Amer) 93.0 (>60) Est GFR (Non-Af Amer) 76.8 (>60) BUN/Creatinine Ratio 13.3 (8-20) Glucose 124 H (70-100) mg/dL Calcium 10.5 H (8.6-10.3) mg/dL Total Bilirubin 1.30 H (0.2-1.0) mg/dL AST 19 (13-39) U/L ALT 25 (7-52) U/L Alkaline Phosphatase 127 H (34-104) U/L Total Protein 7.2 (6.4-8.9) g/dL Albumin 4.5 (3.2-5.2) g/dL Globulin 2.7 (2-4) g/dL Albumin/Globulin Ratio 1.7 (1-3) Urine Color Urine Appearance Urine pH (5-9) Ur Specific [place] (1.010-1.030) Urine Protein (Negative) Urine Ketones (Negative) Urine Blood (Negative) Urine Nitrate (Negative) Urine Bilirubin (Negative) Urine Urobilinogen (Negative) Ur Leukocyte Esterase (Negative) Urine WBC (Auto) (Absent) Urine RBC (Auto) (Absent) Ur Squamous Epith Cells (Absent) Urine Bacteria (Absent) Urine Yeast (Absent) Urine Glucose (Negative) 02/25/18 02/26/18 Range/Units 22:14 02:47 WBC (3.5-10.8) 10^3/ul RBC (4.00-5.40) 10^6/ul Hgb (12.0-16.0) g/dl Hct (35-47) % MCV (80-97) fL MCH (27-31) pg MCHC (31-36) g/dl RDW (10.5-15) % Plt Count (150-450) 10^3/ul MPV (7.4-10.4) um3 Neut % (Auto) (38-83) % Lymph % (Auto) (25-47) % [place] % (Auto) (0-7) % Eos % (Auto) (0-6) % Baso % (Auto) (0-2) % Absolute Neuts (auto) (1.5-7.7) 10^3/ul Absolute Lymphs (auto) (1.0-4.8) 10^3/ul Absolute Monos (auto) (0-0.8) 10^3/ul Absolute Eos (auto) (0-0.6) 10^3/ul Absolute Basos (auto) (0-0.2) 10^3/ul Absolute Nucleated RBC 10^3/ul Nucleated RBC % INR (Anticoag Therapy) (0.77-1.02) APTT 31.1 (26.0-36.3) seconds Sodium (135-145) mmol/L Potassium (3.5-5.0) mmol/L Chloride (101-111) mmol/L Carbon Dioxide (22-32) mmol/L Anion Gap (2-11) mmol/L BUN (6-24) mg/dL Creatinine (0.51-0.95) mg/dL Est GFR ( Amer) (>60) Est GFR (Non-Af Amer) (>60) BUN/Creatinine Ratio (8-20) Glucose (70-100) mg/dL Calcium (8.6-10.3) mg/dL Total Bilirubin (0.2-1.0) mg/dL AST (13-39) U/L ALT (7-52) U/L Alkaline Phosphatase (34-104) U/L Total Protein (6.4-8.9) g/dL Albumin (3.2-5.2) g/dL Globulin (2-4) g/dL Albumin/Globulin Ratio (1-3) Urine Color Yellow Urine Appearance Cloudy Urine pH 6.0 (5-9) Ur Specific [place] 1.006 L (1.010-1.030) Urine Protein Negative (Negative) Urine Ketones Negative (Negative) Urine Blood Negative (Negative) Urine Nitrate Negative (Negative) Urine Bilirubin Negative (Negative) Urine Urobilinogen Negative (Negative) Ur Leukocyte Esterase 1+ A (Negative) Urine WBC (Auto) 2+(11-20/hpf) A (Absent) Urine RBC (Auto) 2+(6-10/hpf) A (Absent) Ur Squamous Epith Cells Present A (Absent) Urine Bacteria 1+ A (Absent) Urine Yeast Present A (Absent) Urine Glucose Negative (Negative) ECG, personally reviewed: ordered, pending CT C-spine WO: IMPRESSION: 1. No acute fracture identified. 2. Multilevel spondylotic changes of the visualized spine, with large posterior osteophyte at T1-2 causing moderate osseous canal narrowing. CT T-spine WO: IMPRESSION: #. Chance-type 3 column fracture at T9 with mild associated paravertebral hematoma as described. No visualized epidural hematoma evident however assessment of the epidural space is limited with CT due to artifact from the bony canal. #. Predisposing decreased bone density and diffuse ankylosis of the thoracic spine facet joints. #. Trace bilateral dependent pleural effusions. #. Negative for pneumothorax. #. Results discussed with Dr. Madrigal 02/25/2018 7:[address] L-spine WO: IMPRESSION: 1. No acute findings. 2. Other chronic findings, as above. Impression: 67F HX Parkinsonism, mild dementia, CVA x3, frequent falls, depression/anxiety presents with a T9 Chance type-3 fracture after mechanical fall DIAGNOSIS & PLAN Primary T9 Chance type-3 fracture after mechanical fall w/ associated small paravertebral hematoma : pain control : maintain position of comfort, avoid supine : no contraindication so surgery or anesthesia identified : NPO x/ meds w/ sips H2O : supportive care Secondary Parkinsonism : continue carbi/levo dopa mild dementia : continue momantidine HLD : continue simvastatin HX CVA x3 : hold aspirin frequent falls : PT/OT evaluations once cleared by neurosurgery depression/anxiety : continue escialopram, bupropioon Admission Rational: Inpatient as without the above interventions the risk of impending adverse outcome is unacceptably high; inappropriate for the outpatient setting DVTp: SCDs, no anticoagulation 2nd trauma, anticipation of surgery, & presence of small paravertebral hematoma Code Status: full, needs revisiting HCP: Critical Care time: 60minutes with >50% spent at the bedside with patient/ family obtaining a history, performing the examination, advising of diagnosis & treatment options along with risks/benefits/reasoning; remainder spent discussing with ER MD, reviewing labs and radiology exams
[2018-02-26] MEDS ORDERED: fentaNYL* 50 MCG/ML 2 ML VIAL (100 MCG VIAL) IV SLOW PU PRN (02:36)
[2018-02-26] MEDS ORDERED: Melatonin 3 MG TAB PO PRN (02:36)
[2018-02-26] MEDS ORDERED: Ondansetron ODT TAB* 4 MG PO PRN (02:36)
[2018-02-26 02:43] LABS: INR 0.98 (0.77-1.02)
--- NOTE | 2018-02-26 03:42 | PN ---
Progress Note - Progress Note Date of Service: 02/26/18 Note: Patient seen earlier. [address] reveals T8 3 column fracture. Will need surgical intervention for stabilization. Discussed in extend with patient and her son. Would recommend MRI of T spine, CT head. T/L spine XR. Spine precautions, strict bed rest. Avoid flat bed rest because of risk of further injury.Full consult note to follow. Daren Garcia MD
[2018-02-26] MEDS: NS 0.9% 1000 ML* 1,000 ML IV SCH (04:28)
[2018-02-26] MEDS: Omeprazole CAP* 20 MG PO SCH (06:22)
[2018-02-26 07:45] LABS: ABS Basophils 0 10^3/ul (0-0.2); ABS Eosinophils 0.1 10^3/ul (0-0.6); ABS Lymphocytes 0.8 10^3/ul (1.0-4.8); ABS Monocytes 0.7 10^3/ul (0-0.8); ABS Neutrophils 5.5 10^3/ul (1.5-7.7); ABS Nucleated RBC 0 10^3/ul; Eosinophil % 0.8 % (0-6); Hematocrit 38 % (35-47); Hemoglobin 12.6 g/dl (12.0-16.0); Lymphocyte % 11.2 % (25-47); Mean Corpuscular HGB Conc 34 g/dl (31-36); Mean Corpuscular Hemoglobin 29 pg (27-31); Mean Corpuscular Volume 86 fL (80-97); Mean Platelet Volume 10.7 um3 (7.4-10.4); Nucleated Red Blood Cells % 0.1; Platelet Count 130 10^3/ul (150-450); Red Blood Count 4.35 10^6/ul (4.00-5.40); Red Cell Distribution Width 15 % (10.5-15); White Blood Count 7.1 10^3/ul (3.5-10.8)
--- NOTE | 2018-02-26 07:46 | RAD ---
Indication: Neck injury. CT of the cervical spine was obtained in the axial plane. Sagittal and coronal reconstructed images were obtained. The skull base demonstrates no fracture. Mastoid air cells are well aerated. Degenerative changes of the atlantoaxial joint are noted. The visualized vertebral bodies appear normal in height and alignment. No disc protrusion is noted. Mild degenerative disc disease is noted at C4-C5 and C5-C6. Mild degenerative disc disease is noted at T1-T2. IMPRESSION: No fracture of the cervical spine with multilevel degenerative disc disease. Osteophyte formation is noted dorsally at T1-T2.
--- NOTE | 2018-02-26 07:49 | RAD ---
INDICATION: Fall. Back pain. COMPARISON: None TECHNIQUE: Noncontrast axial source images was performed from the thoracolumbar junction to the sacrum. Coronal and and sagittal reformatted images were generated. FINDINGS: Vertebrae: There is osteopenia. There are mild biconcave endplate changes There is no fracture or acute focal bony lesion. Alignment: There is a minor scoliotic deformity. Central Canal: There are no significant CT abnormalities of the central canal or foramina. MR imaging is a more sensitive method to evaluate the canal and foramina. There are mild underlying osteoarthritic changes with bony spur formation and multilevel facet arthropathy. Intervertebral disc spaces: The disc spaces are maintained. Soft tissues: The paravertebral soft tissues are normal. Other: There is a gastric lap band. There is cholecystectomy. IMPRESSION: NO ACUTE FINDINGS. MINOR UNDERLYING OSTEOARTHRITIS
[2018-02-26] MEDS: Docusate CAP* 100 MG PO SCH ×2 (08:01→20:54)
[2018-02-26] MEDS: Memantine TAB* 10 MG PO SCH ×2 (08:01→20:47)
[2018-02-26] MEDS: Atorvastatin* 10 MG TAB PO SCH (08:02)
[2018-02-26] MEDS: BuPROPion XL* 150 MG TAB.XL PO SCH (08:02)
[2018-02-26] MEDS: Carbidopa/Levodop 25/100 MG TAB(*) PO SCH ×3 (08:02→17:44)
[2018-02-26] MEDS: Citalopram TAB* 20 MG PO SCH (08:02)
[2018-02-26] MEDS ORDERED: Pneumococcal *Vac Polyvalent 0.5 ML VIAL IM ONE (09:00)
--- NOTE | 2018-02-26 09:56 | RAD ---
Indication:, Head injury. CT of the brain performed without IV contrast. Comparison is made with previous exam of May 12, 2017. Ventricular structures are midline. No midline shift is noted. The ventricles are enlarged consistent with central atrophy. Prominent extra-axial spaces are noted. Periventricular lucency consistent with chronic ischemic White matter change is noted. There is no evidence of intracranial mass or hemorrhage. No other high or low density lesions are identified. The bony calvaria is otherwise unremarkable. Mastoid air cells and paranasal sinuses are unremarkable. IMPRESSION: Chronic ischemic White matter change with diffuse cerebral atrophy. No intracranial mass or hemorrhage is noted.
--- NOTE | 2018-02-26 10:06 | RAD ---
Indication: Fall, fractures. INDICATION: T8 fracture. 3 views of the thoracic lumbar spine were obtained. Vertebral bodies appear normal in height. The study is extremely limited without prior CT demonstrates a fracture of the T8 vertebra. IMPRESSION: Limited evaluation of the thoracic spine on the radiograph. Prior CT demonstrates a fracture.
--- NOTE | 2018-02-26 10:07 | RAD ---
INDICATION: Left hip and leg pain COMPARISON: Left hip same date TECHNIQUE: AP and lateral views were obtained. The entire left femur is not imaged but can be pieced together with the images from the left hip FINDINGS: There is no acute femoral fracture with both examinations are reviewed. There is advanced osteoarthritic change about the knee. The soft tissues are intact. IMPRESSION: NO ACUTE BONY FINDINGS.
--- NOTE | 2018-02-26 10:09 | RAD ---
INDICATION: Left hip pain COMPARISON: None TECHNIQUE: An AP view of the pelvis and AP views of the hip in neutral and crosstable lateral position were obtained FINDINGS: Bones: There are no acute bony findings. Joint spaces: There is moderate osteoarthritic change about both hips. There is no acute bony change, however.. SI joints/symphysis: The SI joints and symphysis are intact. Other: None IMPRESSION: MILDLY LIMITED STUDY DUE TO TO POSITIONING. NO ACUTE BONY FINDINGS ARE NOTED
[2018-02-26] MEDS ORDERED: Potassium Chlor TAB* 20 MEQ TAB.ER PO ONE (13:11)
--- NOTE | 2018-02-26 13:14 | PN ---
Subjective Date of Service: 02/26/18 Interval History: Pt denies any pain. She states she is "bored". She denies numbness, tingling. loss of bowel, or bladder (prior to boone) - She reports she feels well and offers no complaints other than having to lay still in bed. She reports she is fairly home bound and has limited walking ability. She denies CAD, hx of SD. Denies ever having SOB/CP. Objective Active Medications: Acetaminophen (Tylenol Tab*) 650 mg PO Q6H PRN PRN Reason: FEVER/PAIN Atorvastatin Calcium (Lipitor*) 10 mg PO DAILY [facility] Last Admin: 02/26/18 08:02 Dose: 10 mg Bupropion HCl (Wellbutrin Xl *) 150 mg PO DAILY [facility] Last Admin: 02/26/18 08:02 Dose: 150 mg Carbidopa/Levodopa (Sinemet 25/100 Tab(*)) 1 tab PO AC [facility] Last Admin: 02/26/18 12:17 Dose: 1 tab Citalopram Hydrobromide (Celexa Tab*) 20 mg PO DAILY [facility] Last Admin: 02/26/18 08:02 Dose: 20 mg Docusate Sodium (Colace Cap*) 200 mg PO BID [facility] Last Admin: 02/26/18 08:01 Dose: 200 mg Fentanyl Citrate (Fentanyl*) 25 mcg IV SLOW PU Q2H PRN PRN Reason: PAIN Sodium Chloride (Ns 0.9% 1000 Ml*) 1,000 mls @ 75 mls/hr IV PER RATE [facility] Last Admin: 02/26/18 04:28 Dose: 75 mls/hr Melatonin (Melatonin) 3 mg PO BEDTIME PRN; Protocol PRN Reason: Sleep Memantine (Namenda Tab*) 10 mg PO BID [facility] Last Admin: 02/26/18 08:01 Dose: 10 mg Omeprazole (Prilosec Cap*) 20 mg PO DAILY@0600 [facility] Last Admin: 02/26/18 06:22 Dose: 20 mg Ondansetron HCl (Zofran Odt Tab*) 4 mg PO Q6H PRN PRN Reason: n/v Potassium Chloride (Klor Con Er Tab*) 20 meq PO ONCE ONE Stop: 02/26/18 13:12 Vital Signs - 8 hr 02/26/18 02/26/18 07:21 11:08 Temperature 97.6 F 98.5 F Pulse Rate 60 77 Respiratory 16 16 Rate Blood Pressure 147/67 142/78 (mmHg) O2 Sat by Pulse 99 98 Oximetry Oxygen Devices in Use Now: None Appearance: 67 yo female laying in bed A+O x3 in NAD Eyes: No Scleral Icterus, PERRLA Ears/Nose/Mouth/Throat: NL Teeth, Lips, Gums, Mucous Membranes Moist Neck: NL Appearance and Movements; NL JVP Respiratory: Symmetrical Chest Expansion and Respiratory Effort, Clear to Auscultation Cardiovascular: NL Sounds; No Murmurs; No JVD, RRR, No Edema Abdominal: NL Sounds; No Tenderness; No Distention Extremities: No Edema, No Clubbing, Cyanosis Skin: No Rash or Ulcers, No Nodules or Sclerosis Neurological: Alert and Oriented x 3, NL Sensation, NL Gait, NL Muscle Strength and Tone Lines/Tubes/Other Access: Clean, Dry and Intact Boone, Clean, Dry and Intact Peripheral IV Nutrition: Taking PO's Result Diagrams: 02/26/18 07:35 02/26/18 07:35 Assess/Plan/Problems-Billing Assessment: 67 yo female with hx of parkinson, dementia, CVA x3, frequent falls , depression/anxiety who fell at home found to have a T8 3 column fracture - Patient Problems (1) T8 vertebral fracture Comment: - [facility] - Tenative plan for surgery on Thursday - Spinal precautions - nwb - bedrest - Pain management, bowel regimen - Pre-op RCRI score 0.9% risk of cardiac event, EKG compared to prior has noted twave flattening. Plan to obtain ECHO. Her Mets are <4 and is mostly home bound. (2) Parkinsons disease Comment: - continue Sinemet - currently undergoing outpt PT - most likely she will require subacute (3) Dementia Comment: - mild - continue Namenda (4) History of CVA (cerebrovascular accident) Comment: - continue statin, hold ASA (5) Depression with anxiety Comment: - continue celexa and wellbutrin (6) DVT prophylaxis Comment: scds Status and Disposition: inpatient.
--- NOTE | 2018-02-26 17:35 | RAD ---
Indication: T9 Chance fracture. Assess for epidural hematoma. Comparison: February 25, 2018 CT. Technique: [place] 1.5 Serena CV374O with GEM suite. Noncontrast MRI thoracic spine. Report: Requested kyphotic positioning due to T9 fracture limits coil placement resulting in suboptimal image quality. The thoracic spinal cord is normal in morphology and patterns of signal intensity. Kyphosis of the thoracic spine without subluxation at any level. Completely reduced displacement at the T9 Chance fracture compared with the CT of one day prior. No additional fractures evident. No epidural hematoma. Negative for traumatic spinal stenosis. No significant change in small volume of anterior and lateral paravertebral hematoma centered at the T9 level. Small dependent RIGHT and trace dependent LEFT pleural effusions demonstrate interval increase. IMPRESSION: #. Kyphosis of the thoracic spine without subluxation at any level. Completely reduced displacement at the T9 Chance fracture compared with the CT of one day prior. No additional fractures evident. #. No epidural hematoma. Negative for traumatic spinal stenosis. #. No significant change in small volume of anterior and lateral paravertebral hematoma centered at the T9 level.
--- NOTE | 2018-02-26 21:38 | CONS ---
CONSULTATION REPORT: DATE OF CONSULT: DATE OF DICTATION: 02/26/2018. HISTORY OF PRESENT ILLNESS: The patient is a very pleasant 67-year-old female with a history of dementia and several previous strokes that was evaluated in the past in our office for a possible NPH. The patient reportedly sustained a fall and had complaints of back pain. She was brought to the [facility] where a CT scan of the thoracic spine revealed a T9 chance fracture. The patient was then transferred to [facility] Emergency Room and was requested to see the patient by Dr. Nash in the emergency room. The patient was seen in the emergency room with her son at the bedside. The patient reports that she had no loss of consciousness, she recalled how this happened, she had a fall from the standing position, and because of progressive back pain, she decided to come to [facility]. She denies any new weakness, numbness, or tingling of extremities. She has chronic right footdrop, which is residual from the previous stroke. In the past, the patient reports that she has baseline urinary incontinence, but has no complaints of bowel incontinence. The patient was walking without difficulty with a walker prior to her fall. The patient is and lives with her . 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 PAST MEDICAL HISTORY3: The patient has a history of anxiety, parkinsonism, mild dementia, CVA x3, frequent falls, depression, hyperthyroidism. PAST SURGICAL HISTORY: Cholecystectomy. MEDICATIONS: The patient was on: 1. Aspirin 325. 2. Simvastatin. 3. Escitalopram. 4. Bupropion. 5. Carbidopa and levodopa. 6. Memantine. ALLERGIES: CODEINE. SOCIAL HISTORY: Tobacco negative at this time. Alcohol occasionally. Recreational drug use negative. PHYSICAL EXAM: The patient is not in acute distress. She opens her eyes to voice. She had sedation with pain medication prior to her examination. She is oriented x2. Her pupils are equal and reactive. Cranial nerves II through XII are grossly intact. Motor 4-5/5 in the lower extremities. No pronator drift. The patient has also right foot dorsiflexion and EHL weakness 4-/5. The patient 's sensory is grossly intact to light touch. Position intact. Deep tendon reflexes +1 bilaterally. No clonus. Patient has bilateral Babinski. The patient has no tenderness to palpation of the cervical, thoracic, or lumbar spine except an area in the mid thoracic spine. She has free range of motion of the cervical spine. The patient has obvious kyphosis. DIAGNOSTIC STUDIES: The patient had a CT scan of the cervical spine that revealed degenerative disk disease with large posterior osteophyte at T1-2 without evidence of fracture. The patient had a CT scan of the thoracic spine revealing extensive DISH findings with ankylosed spine, significant kyphosis, and also a T9 three-column injury with chance-type fracture. The patient had a CT scan on the lumbar spine that revealed degenerative disk disease with no acute fracture. There are chronic compression deformities of T12 and L3. ASSESSMENT: The patient is a very pleasant 67-year-old female with recent fall and a T9 chance fracture with history of ankylosed spine. PLAN: The patient at this point has suffered quite extensive thoracic fracture. With this being 3-column injury, I think this is highly unstable. Recommend spine precautions and bed rest for now without extending the patient' s spine. Discussed the possibility of surgical intervention with the patient and her son, describing that she may need a long posterior construct with multiple pedicle screws and rods and possible also an anterior intervention in the future if necessary. Discussed risks and benefits as well as limitations and possible complications of the procedure with the complications including, but not limited to, bleeding, infection, risk of injury to adjacent structures, coma, paralysis, , stroke, blindness, cancer, instability, hardware failure , need for additional procedures in the future, anesthesia risk. The patient and her son understand that because of her presentation with ankylosed spine and fracture with mortality rate of almost 18% the first month and around 30% the first year based on other possible medical undetected conditions. Discussed the possibility of prolonged ICU stay. The patient and her son were thinking about transfer to [place], but they would prefer to have care locally. The patient will be admitted by the hospitalist service with spine precautions and we will obtain an MRI of her thoracic spine to exclude the possibility of epidural hematoma and we will plan for surgical intervention once there is availability from the OR. Full instructions were given to the patient and her son. Thank you very much for allowing us to participate in the care of this patient. Please do not hesitate to contact our office in case you have any further questions or concerns regarding the care of this patient. [id number]/[facility] #: [id number] ANA
[2018-02-27] MEDS: NS 0.9% 1000 ML* 1,000 ML IV SCH (00:09)
[2018-02-27 06:21] LABS: ABS Basophils 0 10^3/ul (0-0.2); ABS Eosinophils 0.1 10^3/ul (0-0.6); ABS Lymphocytes 0.8 10^3/ul (1.0-4.8); ABS Monocytes 0.6 10^3/ul (0-0.8); ABS Neutrophils 6.6 10^3/ul (1.5-7.7); ABS Nucleated RBC 0 10^3/ul; Eosinophil % 0.9 % (0-6); Hematocrit 39 % (35-47); Hemoglobin 13.1 g/dl (12.0-16.0); Lymphocyte % 10.1 % (25-47); Mean Corpuscular HGB Conc 34 g/dl (31-36); Mean Corpuscular Hemoglobin 29 pg (27-31); Mean Corpuscular Volume 86 fL (80-97); Mean Platelet Volume 10.1 um3 (7.4-10.4); Nucleated Red Blood Cells % 0; Platelet Count 137 10^3/ul (150-450); Red Blood Count 4.48 10^6/ul (4.00-5.40); Red Cell Distribution Width 15 % (10.5-15)
[2018-02-27] MEDS: Omeprazole CAP* 20 MG PO SCH (06:23)
[2018-02-27 06:39] LABS: EGFR Non-African American 92.3 (>60)
[2018-02-27] MEDS: Atorvastatin* 10 MG TAB PO SCH (08:19)
[2018-02-27] MEDS: Carbidopa/Levodop 25/100 MG TAB(*) PO SCH ×3 (08:19→16:45)
[2018-02-27] MEDS: Docusate CAP* 100 MG PO SCH ×2 (08:19→20:38)
[2018-02-27] MEDS: BuPROPion XL* 150 MG TAB.XL PO SCH (08:20)
[2018-02-27] MEDS: Citalopram TAB* 20 MG PO SCH (08:20)
[2018-02-27] MEDS: Memantine TAB* 10 MG PO SCH ×2 (08:20→20:38)
--- NOTE | 2018-02-27 09:53 | PN ---
Progress Note - Progress Note Date of Service: 02/27/18 SOAP: Subjective: [] No events ON. Patient was seen last night and this am. at bedside. No complains of back pain. Britton. Tolerates PO well. Objective: []VSS AAOx3 , Face symmetric Motor 4-5/5/all extremities Sensory grossly intact to light touch. Assessment: [] 67 yo f fall T8 chance fracture Plan: []Monitor VS, Neurochecks Bed rest, spine precautions. Avoid flat bed rest due to kyphosis and risk of further neurological injury. MRI T spine reveals no significant EDH. Anterior small disc/osteophyte. Plan for OR on Thursday if medically cleared. TEDS and SCD, Insentive Spirometer. Discussed in extend with patient and patient's . Daren Garcia MD
[2018-02-27] MEDS: amLODIPine TAB* 5 MG PO SCH (11:21)
--- NOTE | 2018-02-27 16:49 | PN ---
Subjective Date of Service: 02/27/18 Interval History: Pt c/o back pain only when she moves or coughs Objective Active Medications: Acetaminophen (Tylenol Tab*) 650 mg PO Q6H PRN PRN Reason: FEVER/PAIN Amlodipine Besylate (Norvasc Tab*) 5 mg PO DAILY [facility] Last Admin: 02/27/18 11:21 Dose: 5 mg Atorvastatin Calcium (Lipitor*) 10 mg PO DAILY [facility] Last Admin: 02/27/18 08:19 Dose: 10 mg Bupropion HCl (Wellbutrin Xl *) 150 mg PO DAILY [facility] Last Admin: 02/27/18 08:20 Dose: 150 mg Carbidopa/Levodopa (Sinemet 25/100 Tab(*)) 1 tab PO AC [facility] Last Admin: 02/27/18 11:21 Dose: 1 tab Citalopram Hydrobromide (Celexa Tab*) 20 mg PO DAILY [facility] Last Admin: 02/27/18 08:20 Dose: 20 mg Docusate Sodium (Colace Cap*) 200 mg PO BID [facility] Last Admin: 02/27/18 08:19 Dose: Not Given Fentanyl Citrate (Fentanyl*) 25 mcg IV SLOW PU Q2H PRN PRN Reason: PAIN Melatonin (Melatonin) 3 mg PO BEDTIME PRN; Protocol PRN Reason: Sleep Memantine (Namenda Tab*) 10 mg PO BID [facility] Last Admin: 02/27/18 08:20 Dose: 10 mg Omeprazole (Prilosec Cap*) 20 mg PO DAILY@0600 [facility] Last Admin: 02/27/18 06:23 Dose: 20 mg Ondansetron HCl (Zofran Odt Tab*) 4 mg PO Q6H PRN PRN Reason: n/v Vital Signs - 8 hr 02/27/18 10:54 Temperature 98.4 F Pulse Rate 72 Respiratory 20 Rate Blood Pressure 155/61 (mmHg) O2 Sat by Pulse 96 Oximetry Oxygen Devices in Use Now: None Appearance: 89 yo f in nAD, aAOx3 Eyes: No Scleral Icterus, PERRLA Ears/Nose/Mouth/Throat: NL Teeth, Lips, Gums, Mucous Membranes Moist Neck: NL Appearance and Movements; NL JVP, Trachea Midline Respiratory: Symmetrical Chest Expansion and Respiratory Effort, Clear to Auscultation Cardiovascular: NL Sounds; No Murmurs; No JVD, RRR Abdominal: NL Sounds; No Tenderness; No Distention, No Hepatosplenomegaly Lymphatic: No Cervical Adenopathy Extremities: No Edema, No Clubbing, Cyanosis Skin: No Rash or Ulcers, No Nodules or Sclerosis Neurological: Alert and Oriented x 3, NL Muscle Strength and Tone Result Diagrams: 02/27/18 05:56 02/27/18 05:56 Microbiology and Other Data: Microbiology 02/25/18 22:14 Urine Culture - Final Urine Assess/Plan/Problems-Billing Assessment: 67 yo female with hx of parkinson, dementia, CVA x3, frequent falls , depression/anxiety who fell at home found to have a T8 3 column fracture - Patient Problems (1) T8 vertebral fracture Comment: - surgery on Thursday - Dr. Little - Spinal precautions - nwb - bedrest - Pain management, bowel regimen - Pre-op RCRI score 0.9% risk of cardiac event, EKG compared to prior has noted T wave flattening. Plan to obtain ECHO. Her Mets are <4 and is mostly home bound. (2) Dementia Comment: - mild - continue Namenda (3) Depression with anxiety Comment: - continue celexa and wellbutrin (4) History of CVA (cerebrovascular accident) Comment: - continue statin, hold ASA (5) Parkinsons disease Comment: - continue Sinemet - currently undergoing outpt PT - most likely she will require SONIA (6) DVT prophylaxis Comment: scds, no anticoagulation due to perivertebral hematoma Status and Disposition: inpatient.
[2018-02-28] MEDS: Omeprazole CAP* 20 MG PO SCH (05:33)
[2018-02-28] MEDS: BuPROPion XL* 150 MG TAB.XL PO SCH (08:48)
[2018-02-28] MEDS: amLODIPine TAB* 5 MG PO SCH (08:51)
[2018-02-28] MEDS: Atorvastatin* 10 MG TAB PO SCH (08:51)
[2018-02-28] MEDS: Memantine TAB* 10 MG PO SCH ×2 (08:51→20:11)
[2018-02-28] MEDS: Carbidopa/Levodop 25/100 MG TAB(*) PO SCH ×3 (08:51→17:35)
[2018-02-28] MEDS: Docusate CAP* 100 MG PO SCH ×2 (08:51→20:11)
[2018-02-28] MEDS: Citalopram TAB* 20 MG PO SCH (08:51)
--- NOTE | 2018-02-28 08:56 | PN ---
Progress Note - Progress Note Date of Service: 02/28/18 SOAP: Subjective: []No events ON. at bedside. No complains of back pain. Britton. Tolerates PO well. No back pain. Objective: []VSS AAOx3 , Face symmetric Motor 4-5/5/all extremities, mildy rt foot drop (baseline) Sensory grossly intact to light touch. Assessment: []67 yo f fall T8 chance fracture Plan: [] Monitor VS, Neurochecks Bed rest, spine precautions. Avoid flat bed rest due to kyphosis and risk of further neurological injury. Plan for OR on Thursday if medically cleared. TEDS and SCD, Insentive Spirometer. Discussed plan in extend with patient and patient's . Daren Garcia MD
--- NOTE | 2018-02-28 12:56 | PN ---
Subjective Date of Service: 02/28/18 Interval History: Pt feels "OK". Poor appetite-as per family-at baseline. Pt has h/o intermittent vomiting in the past due to gastric band Objective Active Medications: Acetaminophen (Tylenol Tab*) 650 mg PO Q6H PRN PRN Reason: FEVER/PAIN Amlodipine Besylate (Norvasc Tab*) 5 mg PO DAILY [facility] Last Admin: 02/28/18 08:51 Dose: 5 mg Atorvastatin Calcium (Lipitor*) 10 mg PO DAILY [facility] Last Admin: 02/28/18 08:51 Dose: 10 mg Bupropion HCl (Wellbutrin Xl *) 150 mg PO DAILY [facility] Last Admin: 02/28/18 08:48 Dose: 150 mg Carbidopa/Levodopa (Sinemet 25/100 Tab(*)) 1 tab PO AC [facility] Last Admin: 02/28/18 11:37 Dose: 1 tab Citalopram Hydrobromide (Celexa Tab*) 20 mg PO DAILY [facility] Last Admin: 02/28/18 08:51 Dose: 20 mg Docusate Sodium (Colace Cap*) 200 mg PO BID [facility] Last Admin: 02/28/18 08:51 Dose: 200 mg Fentanyl Citrate (Fentanyl*) 25 mcg IV SLOW PU Q2H PRN PRN Reason: PAIN Melatonin (Melatonin) 3 mg PO BEDTIME PRN; Protocol PRN Reason: Sleep Memantine (Namenda Tab*) 10 mg PO BID [facility] Last Admin: 02/28/18 08:51 Dose: 10 mg Omeprazole (Prilosec Cap*) 20 mg PO DAILY@0600 [facility] Last Admin: 02/28/18 05:33 Dose: 20 mg Ondansetron HCl (Zofran Odt Tab*) 4 mg PO Q6H PRN PRN Reason: n/v Vital Signs - 8 hr 02/28/18 02/28/18 07:31 08:00 Temperature 97.9 F Pulse Rate 68 Respiratory 18 18 Rate Blood Pressure 136/73 (mmHg) O2 Sat by Pulse 97 Oximetry Oxygen Devices in Use Now: None Appearance: 67 yo F in nAD, aAOx3 Eyes: No Scleral Icterus, PERRLA Ears/Nose/Mouth/Throat: NL Teeth, Lips, Gums, Mucous Membranes Moist Neck: NL Appearance and Movements; NL JVP, Trachea Midline Respiratory: Symmetrical Chest Expansion and Respiratory Effort, Clear to Auscultation Cardiovascular: NL Sounds; No Murmurs; No JVD, RRR Abdominal: NL Sounds; No Tenderness; No Distention Lymphatic: No Cervical Adenopathy Extremities: No Edema, No Clubbing, Cyanosis Skin: No Rash or Ulcers, No Nodules or Sclerosis Neurological: Alert and Oriented x 3, NL Muscle Strength and Tone Result Diagrams: 02/27/18 05:56 02/27/18 05:56 Microbiology and Other Data: Microbiology 02/25/18 22:14 Urine Culture - Final Urine Assess/Plan/Problems-Billing Assessment: 67 yo female with hx of parkinson, dementia, CVA x3, frequent falls , depression/anxiety who fell at home found to have a T8 3 column fracture - Patient Problems (1) T8 vertebral fracture Comment: - surgery on Thursday - Dr. Little - Spinal precautions - nwb - bedrest - Pain management, bowel regimen - Pre-op RCRI score 0.9% risk of cardiac event, EKG compared to prior has noted T wave flattening. ECHO pending. Her Mets are <4 and is mostly home bound. (2) Dementia Comment: - mild - continue Namenda (3) Depression with anxiety Comment: - continue celexa and wellbutrin (4) History of CVA (cerebrovascular accident) Comment: - continue statin, hold ASA (5) Parkinsons disease Comment: - continue Sinemet - currently undergoing outpt PT - most likely she will require SONIA (6) DVT prophylaxis Comment: scds, no anticoagulation due to perivertebral hematoma Status and Disposition: inpatient.
--- NOTE | 2018-02-28 13:17 | ECHO ---
Patient: ALDEN TANNER [facility] Rec#: [id number] : 1950 Date: 02/28/2018 Age: 67y Height: 165.1 cm / 65.0 in Weight: 92.99 kg / 204.9 lbs Sex: F BSA: 2 Room#: [facility] Admit Date#: 02/26/2018 Type: Inpatient Referring: Aline Sloan Reading: Tadeo Barrett MD Research Physicist: Thu Billy RDCS CC: Ezequiel Ruggiero MD Transthoracic Echocardiogram Indication: Abnormal EKG BP: 165/81 HR: 62 Rhythm: NSR Findings History: Parkinsons, mild dementia, CVA x 3, former smoker. Technical Comments: The study quality is fair. Completed at 1030. Left Ventricle: The left ventricular chamber size is normal.False tendon noted. Mild concentric left ventricular hypertrophy is observed. Global left ventricular wall motion and contractility are within normal limits. There is normal left ventricular systolic function. The estimated ejection fraction is 60-65%. Abnormal left ventricular diastolic function is observed. but nondiagnostic. Left Atrium: The left atrium is moderate to severely dilated. Right Ventricle: Moderator Band present. The right ventricular cavity size is normal. The right ventricle wall thickness is moderately increased.8 mm. The right ventricular global systolic function is normal. Right Atrium: The right atrial cavity size is normal. Aortic Valve: The aortic valve is trileaflet. The aortic valve leaflets are mildly thickened. There is a trace of aortic regurgitation. There is no evidence of aortic stenosis. Mitral Valve: The mitral valve leaflets are mildly thickened. There is a trace of mitral regurgitation. There is no evidence of mitral stenosis. Tricuspid Valve: The tricuspid valve leaflets are normal. There is trace to mild tricuspid regurgitation. Unable to estimate the right ventricular systolic pressure. There is no tricuspid stenosis. Pulmonic Valve: The pulmonic valve appears normal. There is a trace pulmonic regurgitation. There is no pulmonic stenosis. Pericardium: There is no significant pericardial effusion. A pericardial fat pad is visualized. Aorta: There is no dilatation of the ascending aorta. There is no dilatation of the aortic arch. The aortic root is normal in size. Pulmonary Artery: The main pulmonary artery appears normal. Venous: The inferior vena cava appears normal in size. There is a greater than 50% respiratory change in the inferior vena cava dimension. Summary: There was not any prior study for comparison. Conclusions Mild concentric left ventricular hypertrophy is observed. The estimated ejection fraction is 60-65%. Abnormal left ventricular diastolic function is observed but nondiagnostic for grade/LAP. The left atrium is moderate to severely dilated. The right ventricle wall thickness is moderately increased. The aortic valve leaflets are mildly thickened. There is a trace of mitral regurgitation. There is trace to mild tricuspid regurgitation. Measurements Name Value Normal Range RVIDd (AP) 2D 2.9 cm (0.9 - 2.6) RVDdMajor (2D) 4 cm (2.2 - 4.4) RAd ISD 4CH 4.9 cm (3.4 - 4.9) RA (A4C)W 4.3 cm (2.9 - 4.6) IVSd (2D) 1.3 cm (0.6 - 1) LVPWd (2D) 1.2 cm (0.6 - 1) LVIDd (2D) 4.1 cm (3.6 - 5.4) LVIDs (2D) 2.6 cm - LV FS (2D) 36 % (25 - 45) Aortic Annulus 2.1 cm (1.4 - 2.6) Ao root diameter (2D) 3 cm (2.1 - 3.5) Ascending Ao 3.2 cm (2.1 - 3.4) Aortic arch 2.9 cm (1.8 - 3.4) LA dimension (AP) 2D 4 cm (2.3 - 3.8) LAd ISD 4CH 5.8 cm (2.9 - 5.3) LA ISD 4CH W 4.6 cm (2.5 - 4.5) Name Value Normal Range LA ESV SP 4CH (A/L) 84 ml - LA ESV SP 2CH (A/L) 86 ml - LA ESV BP (A/L) 86 ml - LA ESV BP (A/L) index 43 ml/m2 - LA ESV SP 4CH (MOD) 77 ml - LA ESV SP 2CH (MOD) 80 ml - Name Value Normal Range MV E-wave Vmax 0.5 m/sec - MV deceleration time 318.9 msec - MV A-wave Vmax 0.83 m/sec - MV E:A ratio 0.5 ratio - LV septal e' Vmax 0.04 m/sec - LV lateral e' Vmax 0.08 m/sec - LV E:e' septal ratio 12.5 ratio - LV E:e' lateral ratio 6.25 ratio - Name Value Normal Range AV Vmax 1.54 m/sec - AV VTI 30.93 cm - AV peak gradient 9.51 mmHg - AV mean gradient 5.22 mmHg - LVOT Vmax 1.12 m/sec - LVOT VTI 23.22 cm - LVOT peak gradient 5.06 mmHg - LVOT mean gradient 2.29 mmHg - DIDIER Vmax 0.8 m/sec - Name Value Normal Range IVC diameter 1.7 cm - Name Value Normal Range PV Vmax 1.2 m/sec - PV peak gradient 6.49 mmHg -
[2018-03-01] MEDS: Omeprazole CAP* 20 MG PO SCH (05:30)
[2018-03-01] MEDS: Carbidopa/Levodop 25/100 MG TAB(*) PO SCH ×4 (08:05→17:33)
[2018-03-01] MEDS: Docusate CAP* 100 MG PO SCH (08:06)
[2018-03-01] MEDS: BuPROPion XL* 150 MG TAB.XL PO SCH (08:06)
[2018-03-01] MEDS: Atorvastatin* 10 MG TAB PO SCH (08:06)
[2018-03-01] MEDS: Citalopram TAB* 20 MG PO SCH (08:07)
[2018-03-01] MEDS: amLODIPine TAB* 5 MG PO SCH (08:07)
[2018-03-01] MEDS: Memantine TAB* 10 MG PO SCH (08:07)
[2018-03-01] MEDS ORDERED: Magnesium Hydroxide LIQ* 30 ML UDC PO ONE (12:26)
--- NOTE | 2018-03-01 13:44 | PN ---
Subjective Date of Service: 03/01/18 Interval History: pt's appetite has improved, now c/o constipation. Pain in back when moving only. Cont on bedrest. Surgery in AM Objective Active Medications: Acetaminophen (Tylenol Tab*) 650 mg PO Q6H PRN PRN Reason: FEVER/PAIN Amlodipine Besylate (Norvasc Tab*) 5 mg PO 0900 [facility] Atorvastatin Calcium (Lipitor*) 10 mg PO 0900 [facility] Bupropion HCl (Wellbutrin Xl *) 150 mg PO 0900 [facility] Carbidopa/Levodopa (Sinemet 25/100 Tab(*)) 1 tab PO 0730,1130,1630 [facility] Carbidopa/Levodopa (Sinemet 25/100 Tab(*)) 1 tab PO AC [facility] Stop: 03/01/18 16:31 Last Admin: 03/01/18 11:51 Dose: Not Given Citalopram Hydrobromide (Celexa Tab*) 20 mg PO 0900 [facility] Docusate Sodium (Colace Cap*) 200 mg PO 0900,2100 [facility] Docusate Sodium (Colace Cap*) 200 mg PO 2100 [facility] Stop: 03/01/18 21:01 Fentanyl Citrate (Fentanyl*) 25 mcg IV SLOW PU Q2H PRN PRN Reason: PAIN Magnesium Hydroxide (Milk Of Magnesia Liq*) 30 ml PO Q6H PRN PRN Reason: CONSTIPATION Melatonin (Melatonin) 3 mg PO BEDTIME PRN; Protocol PRN Reason: Sleep Memantine (Namenda Tab*) 10 mg PO 0900,2100 [facility] Memantine (Namenda Tab*) 10 mg PO 2100 [facility] Stop: 03/01/18 21:01 Omeprazole (Prilosec Cap*) 20 mg PO DAILY@0600 [facility] Last Admin: 03/01/18 05:30 Dose: 20 mg Ondansetron HCl (Zofran Odt Tab*) 4 mg PO Q6H PRN PRN Reason: n/v Vital Signs - 8 hr 03/01/18 03/01/18 03/01/18 07:47 08:00 11:11 Temperature 97.9 F 97.4 F Pulse Rate 70 70 Respiratory 18 16 16 Rate Blood Pressure 152/81 153/73 (mmHg) O2 Sat by Pulse 97 97 Oximetry Oxygen Devices in Use Now: None Appearance: 67 yo F in NAD, aAOx3 Eyes: No Scleral Icterus, PERRLA Ears/Nose/Mouth/Throat: NL Teeth, Lips, Gums, Mucous Membranes Moist Neck: NL Appearance and Movements; NL JVP, Trachea Midline Respiratory: Symmetrical Chest Expansion and Respiratory Effort, Clear to Auscultation Cardiovascular: NL Sounds; No Murmurs; No JVD Abdominal: NL Sounds; No Tenderness; No Distention, No Hepatosplenomegaly Lymphatic: No Cervical Adenopathy Extremities: No Edema, No Clubbing, Cyanosis Skin: No Rash or Ulcers, No Nodules or Sclerosis Neurological: Alert and Oriented x 3, NL Muscle Strength and Tone Result Diagrams: 02/27/18 05:56 02/27/18 05:56 Microbiology and Other Data: Microbiology 02/25/18 22:14 Urine Culture - Final Urine Assess/Plan/Problems-Billing Assessment: 67 yo female with hx of parkinson, dementia, CVA x3, frequent falls , depression/anxiety who fell at home found to have a T8 3 column fracture - Patient Problems (1) T8 vertebral fracture Comment: - surgery on Thursday - Dr. Little - Spinal precautions - nwb - bedrest - Pain management, bowel regimen - Pre-op RCRI score 0.9% risk of cardiac event, EKG compared to prior has noted T wave flattening. ECHO shows good EF and no wall motion abnormality. Pt is an appropiate candidate for anticipated surgery (2) Dementia Comment: - mild - continue Namenda (3) Depression with anxiety Comment: - continue celexa and wellbutrin (4) History of CVA (cerebrovascular accident) Comment: - continue statin, hold ASA (5) Parkinsons disease Comment: - continue Sinemet - currently undergoing outpt PT - most likely she will require SONIA (6) DVT prophylaxis Comment: scds, no anticoagulation due to perivertebral hematoma Status and Disposition: inpatient.
[2018-03-01] MEDS ORDERED: Docusate CAP* 100 MG PO ONE (21:00)
[2018-03-01] MEDS ORDERED: Memantine TAB* 10 MG PO ONE (21:00)
[2018-03-02] MEDS: Docusate CAP* 100 MG PO SCH ×2 (05:19→20:39)
[2018-03-02] MEDS: amLODIPine TAB* 5 MG PO SCH (05:20)
[2018-03-02] MEDS: Atorvastatin* 10 MG TAB PO SCH (05:20)
[2018-03-02] MEDS: Citalopram TAB* 20 MG PO SCH (05:20)
[2018-03-02] MEDS: BuPROPion XL* 150 MG TAB.XL PO SCH (05:20)
[2018-03-02] MEDS: Memantine TAB* 10 MG PO SCH ×2 (05:20→22:46)
[2018-03-02] MEDS: Carbidopa/Levodop 25/100 MG TAB(*) PO SCH ×3 (05:20→18:26)
[2018-03-02] MEDS: Omeprazole CAP* 20 MG PO SCH (05:20)
[2018-03-02] MEDS ORDERED: Lidocain 1% EPI 1:100,000 * 30 ML MDV ONE (07:02)
[2018-03-02] MEDS ORDERED: Bacitracin IV* 50,000 UNITS INJ ONE (07:03)
[2018-03-02] MEDS ORDERED: Thrombin 5,000 UNITS* 1 APPLIC KIT - topical use - TOPICAL ONE (07:03)
[2018-03-02] MEDS ORDERED: EPHEDrine (Pressors)* 50 MG/ML VIAL ONE (07:22)
[2018-03-02] MEDS ORDERED: Dexamethasone IV* 4 MG/ML 1 ML (4 MG) ONE (07:23)
[2018-03-02] MEDS ORDERED: Lidocaine 2% PF * 5 ML VIAL ONE (07:23)
[2018-03-02] MEDS ORDERED: Propofol* 10 MG/ML 20 ML BTL IV PUSH ONE (07:23)
[2018-03-02] MEDS ORDERED: Propofol* 200 ML ONE (07:30)
[2018-03-02] MEDS ORDERED: Atracurium* 10 MG/ML 10 ML VIAL ONE (07:36)
[2018-03-02] MEDS ORDERED: Phenylephrine INJ* 10 MG/ML 1 ML VIAL (10 MG) ONE (07:36)
[2018-03-02] MEDS ORDERED: Midazolam* 1 MG/ML 2 ML VIAL (2 MG) ONE (07:36)
[2018-03-02] MEDS ORDERED: fentaNYL* 50 MCG/ML 5 ML VIAL (250 MCG VIAL) ONE (07:36)
--- NOTE | 2018-03-02 07:40 | PN ---
Progress Note - Progress Note Date of Service: 03/02/18 SOAP: Subjective: []No events ON.NPO. Reba. Objective: [] VSS AAOx3 , Face symmetric Motor 4-5/5/all extremities, mildy rt foot drop (baseline) Sensory grossly intact to light touch. Assessment: []67 yo f fall T9 chance fracture Plan: []Monitor VS, Neurochecks Bed rest, spine precautions. OR today TEDS and SCD, Insentive Spirometer. Discussed risk and benefits of the procedure as well as possible complications in extend with patient and her family including and son. Daren Garcia MD
[2018-03-02] MEDS ORDERED: ceFAZolin 2 GM PREMIX (*) 2 GM/50 ML BAG IVPB ONE ×2 (07:49→12:33)
[2018-03-02] MEDS ORDERED: fentaNYL* 50 MCG/ML 2 ML VIAL (100 MCG VIAL) ONE ×3 (09:34→14:27)
[2018-03-02] MEDS ORDERED: Ondansetron INJ* 2 MG/ML VIAL IV PRN (13:11)
[2018-03-02] MEDS ORDERED: Naloxone* 0.4 MG/ML 1 ML VIAL IV PRN (13:11)
[2018-03-02] MEDS ORDERED: HYDROmorphone INJ* 0.5 MG/0.5 ML SYRINGE IV PRN (13:11)
[2018-03-02] MEDS ORDERED: Ondansetron INJ* 2 MG/ML VIAL ONE (13:12)
[2018-03-02] MEDS: fentaNYL* 50 MCG/ML 2 ML VIAL (100 MCG VIAL) IV PRN ×2 (14:29→15:18)
[2018-03-02] MEDS ORDERED: Metoprolol Tartrate IV* 1 MG/ML 5 ML VIAL ONE (14:33)
[2018-03-02] MEDS: Metoprolol Tartrate IV* 1 MG/ML 5 ML VIAL IV PRN ×7 (14:37→21:36)
--- NOTE | 2018-03-02 14:41 | RAD ---
INDICATION: Posterior thoracic fusion COMPARISON: Thoracic spine November 26, 2017 FINDINGS: 40 seconds of fluoroscopy were provided for the neurosurgical department. Fluoroscopic spot imaging of the thoracic spine were obtained for operative control. CPT II Codes: G9500 (fluoro time doc)
--- NOTE | 2018-03-02 14:43 | RAD ---
INDICATION: Thoracic fusion COMPARISON: None FINDINGS: 34.6 seconds of fluoroscopy were provided for the surgical department. Fluoroscopic spot imaging of the thoracic spine were obtained for operative control. CPT II Codes: G9500 (fluoro time doc)
[2018-03-02] MEDS ORDERED: Cyclobenzaprine TAB* 10 MG PO PRN (15:41)
[2018-03-02] MEDS ORDERED: hydrALAZINE IV* 20 MG/ML VIAL IV SLOW PU PRN (16:33)
[2018-03-02] MEDS: fentaNYL* 50 MCG/ML 2 ML VIAL (100 MCG VIAL) IV SLOW PU PRN ×5 (17:19→22:52)
--- NOTE | 2018-03-02 17:36 | PN ---
Subjective Date of Service: 03/02/18 Interval History: Pt is seen post op in ICU, c/o no pain, mildly sedated, but able to make needs known. Family in room. Objective Active Medications: Acetaminophen (Tylenol Tab*) 650 mg PO Q6H PRN PRN Reason: FEVER/PAIN Amlodipine Besylate (Norvasc Tab*) 5 mg PO 0900 [facility] Last Admin: 03/02/18 05:20 Dose: 5 mg Atorvastatin Calcium (Lipitor*) 10 mg PO 0900 [facility] Last Admin: 03/02/18 05:20 Dose: 10 mg Bupropion HCl (Wellbutrin Xl *) 150 mg PO 0900 [facility] Last Admin: 03/02/18 05:20 Dose: 150 mg Carbidopa/Levodopa (Sinemet 25/100 Tab(*)) 1 tab PO 0730,1130,1630 [facility] Last Admin: 03/02/18 14:55 Dose: Not Given Citalopram Hydrobromide (Celexa Tab*) 20 mg PO 0900 [facility] Last Admin: 03/02/18 05:20 Dose: 20 mg Cyclobenzaprine HCl (Flexeril Tab*) 10 mg PO TID PRN PRN Reason: muscle spasm Docusate Sodium (Colace Cap*) 200 mg PO 0900,2100 [facility] Last Admin: 03/02/18 05:19 Dose: 200 mg Fentanyl Citrate (Fentanyl*) 25 mcg IV SLOW PU Q1H PRN PRN Reason: PAIN Last Admin: 03/02/18 17:19 Dose: 25 mcg Hydralazine HCl (Apresoline Iv*) 5 mg IV SLOW PU Q6H PRN PRN Reason: BLOOD PRESSURE Last Admin: 03/02/18 16:43 Dose: 5 mg Lactated Ringer's (Lactated Ringers 1000 Ml Bag*) 1,000 mls @ 75 mls/hr IV .per rate [facility] Magnesium Hydroxide (Milk Of Magnesia Liq*) 30 ml PO Q6H PRN PRN Reason: CONSTIPATION Melatonin (Melatonin) 3 mg PO BEDTIME PRN; Protocol PRN Reason: Sleep Memantine (Namenda Tab*) 10 mg PO 0900,2100 [facility] Last Admin: 03/02/18 05:20 Dose: 10 mg Metoprolol Tartrate (Lopressor Iv*) 5 mg IV Q4H PRN PRN Reason: BLOOD PRESSURE Last Admin: 03/02/18 17:19 Dose: 5 mg Omeprazole (Prilosec Cap*) 20 mg PO DAILY@0600 [facility] Last Admin: 03/02/18 05:20 Dose: 20 mg Ondansetron HCl (Zofran Odt Tab*) 4 mg PO Q6H PRN PRN Reason: n/v Vital Signs - 8 hr 03/02/18 03/02/18 03/02/18 14:23 14:25 14:28 Temperature 97.0 F Pulse Rate 101 97 96 Respiratory 21 27 22 Rate Blood Pressure 185/100 (mmHg) O2 Sat by Pulse 96 97 97 Oximetry 03/02/18 03/02/18 03/02/18 14:29 14:31 14:35 Temperature Pulse Rate 93 90 Respiratory 14 24 24 Rate Blood Pressure (mmHg) O2 Sat by Pulse 98 98 Oximetry 03/02/18 03/02/18 03/02/18 14:40 14:45 14:46 Temperature Pulse Rate 83 89 88 Respiratory 24 15 11 Rate Blood Pressure (mmHg) O2 Sat by Pulse 99 98 98 Oximetry 03/02/18 03/02/18 03/02/18 14:50 14:53 14:55 Temperature Pulse Rate 82 84 87 Respiratory 15 16 19 Rate Blood Pressure 212/88 (mmHg) O2 Sat by Pulse 98 98 98 Oximetry 03/02/18 03/02/18 03/02/18 15:00 15:01 15:05 Temperature 96.8 F Pulse Rate 81 82 80 Respiratory 15 17 26 Rate Blood Pressure 190/103 (mmHg) O2 Sat by Pulse 99 98 99 Oximetry 03/02/18 03/02/18 03/02/18 15:10 15:15 15:16 Temperature Pulse Rate 82 78 79 Respiratory 16 19 12 Rate Blood Pressure (mmHg) O2 Sat by Pulse 96 94 95 Oximetry 03/02/18 03/02/18 03/02/18 15:18 15:20 15:25 Temperature Pulse Rate 77 68 Respiratory 12 13 14 Rate Blood Pressure (mmHg) O2 Sat by Pulse 96 95 Oximetry 03/02/18 03/02/18 03/02/18 15:30 15:41 15:45 Temperature Pulse Rate 65 74 80 Respiratory 13 Rate Blood Pressure (mmHg) O2 Sat by Pulse 95 96 96 Oximetry 03/02/18 03/02/18 03/02/18 15:50 15:55 15:59 Temperature Pulse Rate 76 72 78 Respiratory 14 20 12 Rate Blood Pressure 197/84 (mmHg) O2 Sat by Pulse 95 96 95 Oximetry 03/02/18 03/02/18 03/02/18 16:00 16:05 16:10 Temperature Pulse Rate 78 79 79 Respiratory 18 15 17 Rate Blood Pressure 188/91 (mmHg) O2 Sat by Pulse 97 97 97 Oximetry 03/02/18 03/02/18 03/02/18 16:15 16:20 16:25 Temperature Pulse Rate 76 71 87 Respiratory 21 14 15 Rate Blood Pressure (mmHg) O2 Sat by Pulse 96 97 96 Oximetry 03/02/18 03/02/18 03/02/18 16:30 16:35 16:40 Temperature Pulse Rate 83 70 89 Respiratory 17 17 9 Rate Blood Pressure (mmHg) O2 Sat by Pulse 97 96 92 Oximetry 03/02/18 03/02/18 03/02/18 16:45 16:50 16:55 Temperature Pulse Rate 79 82 80 Respiratory 9 12 16 Rate Blood Pressure (mmHg) O2 Sat by Pulse 93 92 91 Oximetry 03/02/18 03/02/18 03/02/18 17:00 17:06 17:19 Temperature 97.8 F Pulse Rate 78 76 Respiratory 15 14 14 Rate Blood Pressure 176/108 172/63 (mmHg) O2 Sat by Pulse 93 95 Oximetry Oxygen Devices in Use Now: Nasal Cannula Appearance: 67 yo F in nAD, aAOx3 Eyes: No Scleral Icterus, PERRLA Ears/Nose/Mouth/Throat: NL Teeth, Lips, Gums, Mucous Membranes Moist Neck: NL Appearance and Movements; NL JVP, Trachea Midline Respiratory: Symmetrical Chest Expansion and Respiratory Effort, Clear to Auscultation Cardiovascular: NL Sounds; No Murmurs; No JVD, RRR Abdominal: NL Sounds; No Tenderness; No Distention Lymphatic: No Cervical Adenopathy, No Auricular Adenopathy Extremities: No Edema Skin: No Nodules or Sclerosis, - - throracic back incision covered with postop dressings-not removed. Neurological: Alert and Oriented x 3, NL Muscle Strength and Tone Result Diagrams: 02/27/18 05:56 02/27/18 05:56 Microbiology and Other Data: Microbiology 02/25/18 22:14 Urine Culture - Final Urine Assess/Plan/Problems-Billing Assessment: 67 yo female with hx of parkinson, dementia, CVA x3, frequent falls , depression/anxiety who fell at home found to have a T9 column fracture - Patient Problems (1) T8 vertebral fracture Comment: -s/p surgery on T9 fx, post op in ICU - Pain management post op (2) Dementia Comment: - mild - continue Namenda (3) Depression with anxiety Comment: - continue celexa and wellbutrin (4) History of CVA (cerebrovascular accident) Comment: - continue statin, hold ASA (5) Parkinsons disease Comment: - continue Sinemet - cont PT - most likely she will require SONIA (6) HTN (hypertension) Comment: cont norvasc, added hydralazine, lopressor IV prn (7) DVT prophylaxis Comment: scds, anticoagulation as per neurosurgery Status and Disposition: inpatient.
[2018-03-02] MEDS ORDERED: Nitroglycerin 2% OINT* 1 GM PAK TOPICAL ONE (18:16)
[2018-03-02] MEDS: hydrALAZINE IV* 20 MG/ML VIAL IV SLOW PU PRN ×2 (19:37→23:55)
[2018-03-02] MEDS: Acetaminophen TAB* 325 MG PO PRN (20:35)
--- NOTE | 2018-03-02 22:40 | OP ---
OPERATIVE REPORT: DATE OF OPERATION: 03/02/18 - Inpatient, [id number]. DATE OF : 48 SURGEON: Lam Garcia MD ANESTHESIOLOGIST: Felice Morrison MD ANESTHESIA: General. PRE-OP DIAGNOSES: T9 Chance fracture, ankylosed spine. POST-OP DIAGNOSES: T9 Chance fracture, ankylosed spine. OPERATIVE PROCEDURE: The patient underwent posterior instrumentation with placement of bilateral T6, T7, T8, T10, T11, T12 pedicle screws for stabilization after T9 Chance fracture with intraoperative navigation and intraoperative monitoring. ESTIMATED BLOOD LOSS: 50 cc. COMPLICATIONS: None. SUMMARY: The patient is a very pleasant 67-year-old female with history of dementia, who sustained a fall from a standing position. She came to the emergency room and was diagnosed with T9 Chance fracture and ankylosed spine. Because of the instability of the fracture, the patient was offered the option of surgical intervention in the form of posterior instrumentation. After explaining expectations, limitations, and possible complications of the procedure with complications included, but not limited to, bleeding, infection, risk of injury to adjacent structures, coma, paralysis, , need for additional procedure, anesthesia risk, stroke, blindness, cancer, instability, hardware failure, adjacent level disease, pseudoarthrosis, proximal junctional kyphosis, the patient and her family were agreeable to proceed with surgery and informed consent was obtained. The patient and her family including her and her son understood that her condition may not improve and in fact may get worse after the surgery and she may need to have additional procedures in the future. They also understood that the operative plan may be modified according to intraoperative findings and conditions. DESCRIPTION OF PROCEDURE: The patient was brought to the operating room, was placed under general anesthesia by the anesthesia team. She was carefully positioned prone on the Josh table and all bony prominences were meticulously padded. Her skin was prepped and draped in a standard fashion. After appropriate surgical pause and patient identification, the T12 pedicle and spinous process were identified under fluoroscopic imaging. A small midline incision over the spinous process of T12 was marked and infiltrated with local anesthetic. A #10 surgical blade was used to incise the skin. The incision was carried down with Bovie cautery, and after incising the dorsal fascia on both sides of midline, the clamp for the navigation star was secured. Intraoperative O-arm imaging was obtained and the patient's data was transferred to the navigation platform. Under stereotactic navigation, the projection of the pedicle screws at T10 to T12 was marked on the skin and the skin was infiltrated with local anesthetic and the skin was incised with #10 surgical blade. Under stereotactic navigation, the pedicles were cannulated with use of navigated high-speed drill, awl tip tap, and pedicle screws inserted at T10, T11, T12 levels with 6.5 x 45 mm screws for the T12 level and 5.5 x 45 mm screws for the other levels. [facility] instrumentation was used for the whole case. Then, another midline incision was marked on the skin over the spinous process of T8. The skin was infiltrated with local anesthetic and a #10 surgical blade was used to incise the skin. The spinous process of T8 was then identified and a second clamp was secured in that level. Intraoperative O-arm imaging confirmed excellent placement of all hardware while the imaging from the T6 to T9 was transferred to the navigation platform. Again, the projection of the pedicles of T8, T7, and T6 was marked on the skin. The procedure was then repeated. A 5.5 x 45 mm screws were used for the T8 level, 5.5 x 40 mm screws were used for the T6 and T7 level. Another O-arm imaging confirmed excellent placement of all hardware, and after removing the navigation clamps, two 190 mm titanium rods were contoured in shape and were tunneled through the skin in order to connect the screws. Screw head caps were used to secure the rods in place and intraoperative fluoroscopic image confirmed excellent placement of all hardware after removal of the extension towers of the pedicle screws. The wounds were then copiously irrigated after confirmation of meticulous hemostasis. They were closed by layers with 0 interrupted Vicryl sutures to approximate the dorsal fascia while 2-0 interrupted Vicryl sutures were used to approximate the subcutaneous tissue. The skin was covered with Dermabond. At the end of the procedure, all counts were reported to be correct. The patient remained hemodynamically stable throughout the case and the intraoperative electrophysiological monitoring remained stable throughout the case. The patient was then turned supine, was extubated, and was transferred to Recovery in excellent condition. The case was done with assistance of a surgical PA because of the complexity of the case. [id number]/[id number] #: [id number] [facility] SYSTEMAlfonso
[2018-03-03] MEDS: Metoprolol Tartrate IV* 1 MG/ML 5 ML VIAL IV PRN (02:15)
[2018-03-03 05:20] LABS: Hematocrit 38 % (35-47); Hemoglobin 12.8 g/dl (12.0-16.0); Mean Corpuscular HGB Conc 34 g/dl (31-36); Mean Corpuscular Hemoglobin 29 pg (27-31); Mean Corpuscular Volume 86 fL (80-97); Mean Platelet Volume 10.1 um3 (7.4-10.4); Platelet Count 147 10^3/ul (150-450); Red Blood Count 4.39 10^6/ul (4.00-5.40); Red Cell Distribution Width 15 % (10.5-15); White Blood Count 8.9 10^3/ul (3.5-10.8)
[2018-03-03 05:34] LABS: EGFR Non-African American 114.7 (>60)
[2018-03-03] MEDS: Omeprazole CAP* 20 MG PO SCH (06:23)
[2018-03-03] MEDS: fentaNYL* 50 MCG/ML 2 ML VIAL (100 MCG VIAL) IV SLOW PU PRN ×3 (08:15→11:27)
[2018-03-03] MEDS: amLODIPine TAB* 5 MG PO SCH (08:25)
[2018-03-03] MEDS: Memantine TAB* 10 MG PO SCH ×2 (08:27→19:56)
[2018-03-03] MEDS: Citalopram TAB* 20 MG PO SCH (08:27)
[2018-03-03] MEDS: Docusate CAP* 100 MG PO SCH ×2 (08:28→19:55)
[2018-03-03] MEDS: Atorvastatin* 10 MG TAB PO SCH (08:28)
[2018-03-03] MEDS: Carbidopa/Levodop 25/100 MG TAB(*) PO SCH ×3 (08:28→16:20)
[2018-03-03] MEDS: BuPROPion XL* 150 MG TAB.XL PO SCH (09:47)
--- NOTE | 2018-03-03 09:59 | PN ---
Review of Systems - Measurements Intake and Output: Intake and Output Last 24 Hours 03/01/18 03/02/18 03/03/18 03/04/18 06:59 06:59 06:59 06:59 Intake Total 720 1160 3444 Output Total 1550 2300 2790 Balance -830 -1140 654 Weight 203 lb 9.6 oz 204 lb 8 oz 207 lb 8 oz Intake: IV Fluids 3444 LR 844 lr 2600 Oral 720 1160 0 Output: [place] 1550 2300 2740 Estimated Blood Loss 50 Other: Date of Last Bowel 02/24/18 Movement # Bowel Movements 0 0 Objective Active Medications: Acetaminophen (Tylenol Tab*) 650 mg PO Q6H PRN PRN Reason: FEVER/PAIN Last Admin: 03/02/18 20:35 Dose: 650 mg Amlodipine Besylate (Norvasc Tab*) 5 mg PO 0900 [facility] Last Admin: 03/03/18 08:25 Dose: 5 mg Atorvastatin Calcium (Lipitor*) 10 mg PO 0900 [facility] Last Admin: 03/03/18 08:28 Dose: 10 mg Bupropion HCl (Wellbutrin Xl *) 150 mg PO 0900 [facility] Last Admin: 03/03/18 09:47 Dose: 150 mg Carbidopa/Levodopa (Sinemet 25/100 Tab(*)) 1 tab PO 0730,1130,1630 [facility] Last Admin: 03/03/18 08:28 Dose: 1 tab Citalopram Hydrobromide (Celexa Tab*) 20 mg PO 0900 [facility] Last Admin: 03/03/18 08:27 Dose: 20 mg Cyclobenzaprine HCl (Flexeril Tab*) 10 mg PO TID PRN PRN Reason: muscle spasm Last Admin: 03/02/18 20:36 Dose: 10 mg Docusate Sodium (Colace Cap*) 200 mg PO 0900,2100 [facility] Last Admin: 03/03/18 08:28 Dose: 200 mg Fentanyl Citrate (Fentanyl*) 25 mcg IV SLOW PU Q1H PRN PRN Reason: PAIN Last Admin: 03/03/18 09:19 Dose: 25 mcg Hydralazine HCl (Apresoline Iv*) 10 mg IV SLOW PU Q4HR PRN PRN Reason: BLOOD PRESSURE Last Admin: 03/02/18 23:55 Dose: 10 mg Lactated Ringer's (Lactated Ringers 1000 Ml Bag*) 1,000 mls @ 75 mls/hr IV .per rate [facility] Last Admin: 03/02/18 18:27 Dose: 75 mls/hr Magnesium Hydroxide (Milk Of Magnesia Liq*) 30 ml PO Q6H PRN PRN Reason: CONSTIPATION Melatonin (Melatonin) 3 mg PO BEDTIME PRN; Protocol PRN Reason: Sleep Last Admin: 03/02/18 20:37 Dose: 3 mg Memantine (Namenda Tab*) 10 mg PO 0900,2100 [facility] Last Admin: 03/03/18 08:27 Dose: 10 mg Metoprolol Tartrate (Lopressor Iv*) 5 mg IV Q4H PRN PRN Reason: BLOOD PRESSURE Last Admin: 03/03/18 02:15 Dose: 5 mg Omeprazole (Prilosec Cap*) 20 mg PO DAILY@0600 [facility] Last Admin: 03/03/18 06:23 Dose: 20 mg Ondansetron HCl (Zofran Odt Tab*) 4 mg PO Q6H PRN PRN Reason: n/v Vital Signs - 8 hr 03/03/18 03/03/18 03/03/18 02:00 02:01 02:15 Temperature Pulse Rate 83 88 82 Respiratory 19 18 17 Rate Blood Pressure 141/69 134/58 (mmHg) O2 Sat by Pulse 96 97 97 Oximetry 03/03/18 03/03/18 03/03/18 02:30 02:45 02:46 Temperature Pulse Rate 78 76 76 Respiratory 16 17 18 Rate Blood Pressure 134/94 149/69 (mmHg) O2 Sat by Pulse 98 98 98 Oximetry 03/03/18 03/03/18 03/03/18 03:00 03:15 03:30 Temperature Pulse Rate 86 80 78 Respiratory 18 19 15 Rate Blood Pressure 174/100 137/66 152/67 (mmHg) O2 Sat by Pulse 97 98 98 Oximetry 03/03/18 03/03/18 03/03/18 03:32 03:45 04:00 Temperature 98.6 F Pulse Rate 77 80 Respiratory 18 16 Rate Blood Pressure 151/81 142/69 (mmHg) O2 Sat by Pulse 98 97 Oximetry 03/03/18 03/03/18 03/03/18 04:15 04:30 04:34 Temperature Pulse Rate 79 78 78 Respiratory 5 17 22 Rate Blood Pressure 151/65 153/74 153/67 (mmHg) O2 Sat by Pulse 97 98 98 Oximetry 03/03/18 03/03/18 03/03/18 04:45 05:00 05:15 Temperature Pulse Rate 77 79 80 Respiratory 18 20 18 Rate Blood Pressure 141/67 142/93 150/67 (mmHg) O2 Sat by Pulse 98 98 97 Oximetry 03/03/18 03/03/18 03/03/18 05:30 05:45 06:00 Temperature Pulse Rate 82 81 82 Respiratory 20 30 20 Rate Blood Pressure 155/71 151/76 (mmHg) O2 Sat by Pulse 97 97 97 Oximetry 03/03/18 03/03/18 03/03/18 07:55 08:15 09:19 Temperature 99.3 F Pulse Rate Respiratory 16 21 Rate Blood Pressure (mmHg) O2 Sat by Pulse Oximetry Oxygen Devices in Use Now: Nasal Cannula Result Diagrams: 03/03/18 05:09 03/03/18 05:09 Microbiology and Other Data: Microbiology 02/25/18 22:14 Urine Culture - Final Urine Assess/Plan/Problems-Billing Assessment: 67 yo female with hx of parkinson, dementia, CVA x3, frequent falls , depression/anxiety who fell at home found to have a T9 column fracture - Patient Problems (1) T8 vertebral fracture Comment: -s/p surgery on T9 fx, post op in ICU - Pain management post op (2) Dementia Comment: - mild - continue Namenda (3) Depression with anxiety Comment: - continue celexa and wellbutrin (4) History of CVA (cerebrovascular accident) Comment: - continue statin, hold ASA (5) Parkinsons disease Comment: - continue Sinemet - cont PT - most likely she will require SONIA (6) HTN (hypertension) Comment: cont norvasc, added hydralazine, lopressor IV prn (7) DVT prophylaxis Comment: scds, anticoagulation as per neurosurgery Status and Disposition: inpatient.
--- NOTE | 2018-03-03 10:00 | PN ---
Subjective Date of Service: 03/03/18 Interval History: Pt feels well,forgetful, bay alert and able to carry on a conversation sitting in chair first time since admission No c/o pain Objective Active Medications: Acetaminophen (Tylenol Tab*) 650 mg PO Q6H PRN PRN Reason: FEVER/PAIN Last Admin: 03/02/18 20:35 Dose: 650 mg Amlodipine Besylate (Norvasc Tab*) 5 mg PO 0900 [facility] Last Admin: 03/03/18 08:25 Dose: 5 mg Atorvastatin Calcium (Lipitor*) 10 mg PO 0900 [facility] Last Admin: 03/03/18 08:28 Dose: 10 mg Bupropion HCl (Wellbutrin Xl *) 150 mg PO 0900 [facility] Last Admin: 03/03/18 09:47 Dose: 150 mg Carbidopa/Levodopa (Sinemet 25/100 Tab(*)) 1 tab PO 0730,1130,1630 [facility] Last Admin: 03/03/18 08:28 Dose: 1 tab Citalopram Hydrobromide (Celexa Tab*) 20 mg PO 0900 [facility] Last Admin: 03/03/18 08:27 Dose: 20 mg Cyclobenzaprine HCl (Flexeril Tab*) 10 mg PO TID PRN PRN Reason: muscle spasm Last Admin: 03/02/18 20:36 Dose: 10 mg Docusate Sodium (Colace Cap*) 200 mg PO 0900,2100 [facility] Last Admin: 03/03/18 08:28 Dose: 200 mg Fentanyl Citrate (Fentanyl*) 25 mcg IV SLOW PU Q1H PRN PRN Reason: PAIN Last Admin: 03/03/18 09:19 Dose: 25 mcg Hydralazine HCl (Apresoline Iv*) 10 mg IV SLOW PU Q4HR PRN PRN Reason: BLOOD PRESSURE Last Admin: 03/02/18 23:55 Dose: 10 mg Lactated Ringer's (Lactated Ringers 1000 Ml Bag*) 1,000 mls @ 75 mls/hr IV .per rate [facility] Last Admin: 03/02/18 18:27 Dose: 75 mls/hr Magnesium Hydroxide (Milk Of Magnesia Liq*) 30 ml PO Q6H PRN PRN Reason: CONSTIPATION Melatonin (Melatonin) 3 mg PO BEDTIME PRN; Protocol PRN Reason: Sleep Last Admin: 03/02/18 20:37 Dose: 3 mg Memantine (Namenda Tab*) 10 mg PO 0900,2100 [facility] Last Admin: 03/03/18 08:27 Dose: 10 mg Metoprolol Tartrate (Lopressor Iv*) 5 mg IV Q4H PRN PRN Reason: BLOOD PRESSURE Last Admin: 03/03/18 02:15 Dose: 5 mg Omeprazole (Prilosec Cap*) 20 mg PO DAILY@0600 [facility] Last Admin: 03/03/18 06:23 Dose: 20 mg Ondansetron HCl (Zofran Odt Tab*) 4 mg PO Q6H PRN PRN Reason: n/v Vital Signs - 8 hr 03/03/18 03/03/18 03/03/18 02:00 02:01 02:15 Temperature Pulse Rate 83 88 82 Respiratory 19 18 17 Rate Blood Pressure 141/69 134/58 (mmHg) O2 Sat by Pulse 96 97 97 Oximetry 03/03/18 03/03/18 03/03/18 02:30 02:45 02:46 Temperature Pulse Rate 78 76 76 Respiratory 16 17 18 Rate Blood Pressure 134/94 149/69 (mmHg) O2 Sat by Pulse 98 98 98 Oximetry 03/03/18 03/03/18 03/03/18 03:00 03:15 03:30 Temperature Pulse Rate 86 80 78 Respiratory 18 19 15 Rate Blood Pressure 174/100 137/66 152/67 (mmHg) O2 Sat by Pulse 97 98 98 Oximetry 03/03/18 03/03/18 03/03/18 03:32 03:45 04:00 Temperature 98.6 F Pulse Rate 77 80 Respiratory 18 16 Rate Blood Pressure 151/81 142/69 (mmHg) O2 Sat by Pulse 98 97 Oximetry 03/03/18 03/03/18 03/03/18 04:15 04:30 04:34 Temperature Pulse Rate 79 78 78 Respiratory 5 17 22 Rate Blood Pressure 151/65 153/74 153/67 (mmHg) O2 Sat by Pulse 97 98 98 Oximetry 03/03/18 03/03/18 03/03/18 04:45 05:00 05:15 Temperature Pulse Rate 77 79 80 Respiratory 18 20 18 Rate Blood Pressure 141/67 142/93 150/67 (mmHg) O2 Sat by Pulse 98 98 97 Oximetry 03/03/18 03/03/18 03/03/18 05:30 05:45 06:00 Temperature Pulse Rate 82 81 82 Respiratory 20 30 20 Rate Blood Pressure 155/71 151/76 (mmHg) O2 Sat by Pulse 97 97 97 Oximetry 03/03/18 03/03/18 03/03/18 07:55 08:15 09:19 Temperature 99.3 F Pulse Rate Respiratory 16 21 Rate Blood Pressure (mmHg) O2 Sat by Pulse Oximetry Oxygen Devices in Use Now: Nasal Cannula Appearance: 67 yo F in nAD, AAOx2, disoriented to correct date, could not recall her age Eyes: No Scleral Icterus, PERRLA Ears/Nose/Mouth/Throat: NL Teeth, Lips, Gums, Mucous Membranes Moist Neck: NL Appearance and Movements; NL JVP, Trachea Midline Respiratory: Symmetrical Chest Expansion and Respiratory Effort, Clear to Auscultation Cardiovascular: NL Sounds; No Murmurs; No JVD Abdominal: NL Sounds; No Tenderness; No Distention Lymphatic: No Cervical Adenopathy Extremities: No Edema, No Clubbing, Cyanosis Skin: No Rash or Ulcers, No Nodules or Sclerosis, - - thoracic back incision covered with surgical dressings -not uncovered Neurological: NL Muscle Strength and Tone Result Diagrams: 03/03/18 05:09 03/03/18 05:09 Microbiology and Other Data: Microbiology 02/25/18 22:14 Urine Culture - Final Urine Assess/Plan/Problems-Billing Assessment: 67 yo female with hx of parkinsons, dementia, CVA x3, frequent falls , depression/anxiety who fell at home found to have a T9 column fracture - Patient Problems (1) T8 vertebral fracture Comment: -s/p surgery on T9 fx, post op in ICU, able to be transferred to [facility] today. -Pt/OT PMRU ordered -urine cloudy, will check UA, may be able to d/c [place] in the next 24H (2) Dementia Comment: - mild - continue Namenda (3) Depression with anxiety Comment: - continue celexa and wellbutrin (4) History of CVA (cerebrovascular accident) Comment: - continue statin, hold ASA (5) Parkinsons disease Comment: - continue Sinemet - cont PT (6) HTN (hypertension) Comment: cont norvasc, added hydralazine, lopressor IV prn (7) DVT prophylaxis Comment: scds, anticoagulation as per neurosurgery Status and Disposition: Inpatient
[2018-03-03 11:29] LABS: Urine Appearance Clear; Urine Blood 2+ (Negative); Urine Color Yellow; Urine Ketones Negative (Negative); Urine Protein Negative (Negative); Urine Red Blood Cell 3+(>10/hpf) (Absent); Urine Specific Gravity 1.008 (1.010-1.030); Urine Urobilinogen Negative (Negative); Urine White Blood Cell 2+(11-20/hpf) (Absent)
--- NOTE | 2018-03-03 12:58 | RAD ---
HISTORY: Post op T9 fracture stabilization COMPARISONS: February 26, 2018, CT dated February 25, 2018 VIEWS: 4, Frontal and lateral views of the thoracic spine. FINDINGS: ALIGNMENT: There is a scoliotic curvature of the spine. VERTEBRAL BODIES: The fracture line of T9 is not visible on the current examination. There has been interval spinal stabilization with pedicle screws and rods noted at T6, T7, T8, T10, T11, and T12 JOINTS: There is facet osteoarthritis along the lumbar spine INTERVERTEBRAL DISCS: Again noted is diastasis of the intervertebral disc space at T8-T9, similar to the previous examination. SOFT TISSUE: Unremarkable OTHER: The visualized lungs are clear. IMPRESSION: STATUS POST SPINAL STABILIZATION SURGERY WITH PERSISTENT DIASTASIS OF THE T8-T9 INTERVERTEBRAL DISC SPACE
[2018-03-03] MEDS ORDERED: Bisacodyl SUPP* 10 MG SUPP PR PRN (16:08)
[2018-03-03] MEDS ORDERED: Bisacodyl SUPP* 10 MG SUPP PR ONE (16:08)
[2018-03-03] MEDS ORDERED: Magnesium Hydroxide LIQ* 30 ML UDC PO ONE (16:09)
[2018-03-03] MEDS ORDERED: Bisacodyl SUPP* 10 MG SUPP ONE (16:11)
--- NOTE | 2018-03-03 18:50 | PN ---
Progress Note - Progress Note Date of Service: 03/03/18 SOAP: Subjective: [] Patient was seen earlier this am. In ICU. Tolerated procedure well yesterday. No events ON. [place]. Tolerates po. Family at bedside. Objective: [] VSS Wounds s,c,d. AAOx3 , Face symmetric Motor 4-5/5/all extremities, mildy rt foot drop (baseline) Sensory grossly intact to light touch. Assessment: []67 yo f fall T9 chance fracture POD#1 MIS T6-T12 pedicle screws instrumentation. Plan: [] Monitor VS, Neurochecks OOB with assistance. PT evaluation TEDS and SCD, Insentive Spirometer. Ok to start SQ heparin , DC boone from NS standpoint. TLSO brace when OOB DC planning. XR reveals good alignment of the spine. Transfer to regular floor Daren Garcia MD
[2018-03-03] MEDS: Senna TAB PO SCH (19:55)
[2018-03-03] MEDS: Magnesium Hydroxide LIQ* 30 ML UDC PO PRN (19:56)
[2018-03-04] MEDS: Omeprazole CAP* 20 MG PO SCH (05:35)
[2018-03-04] MEDS: amLODIPine TAB* 5 MG PO SCH (08:08)
[2018-03-04] MEDS: Docusate CAP* 100 MG PO SCH ×2 (08:08→21:47)
[2018-03-04] MEDS: Carbidopa/Levodop 25/100 MG TAB(*) PO SCH ×3 (08:08→16:39)
[2018-03-04] MEDS: Citalopram TAB* 20 MG PO SCH (08:08)
[2018-03-04] MEDS: Atorvastatin* 10 MG TAB PO SCH (08:08)
[2018-03-04] MEDS: Memantine TAB* 10 MG PO SCH ×2 (08:08→21:46)
[2018-03-04] MEDS: Metoprolol Tartrate TAB* 25 MG PO SCH ×2 (09:44→21:49)
[2018-03-04] MEDS: BuPROPion XL* 150 MG TAB.XL PO SCH (09:44)
--- NOTE | 2018-03-04 10:07 | PN ---
Subjective Date of Service: 03/04/18 Interval History: Pt feels well, up in bead reading a newspaper. no complaints of pain. Had a BM yesterday Objective Active Medications: Acetaminophen (Tylenol Tab*) 650 mg PO Q6H PRN PRN Reason: FEVER/PAIN Last Admin: 03/02/18 20:35 Dose: 650 mg Amlodipine Besylate (Norvasc Tab*) 5 mg PO 0900 [facility] Last Admin: 03/04/18 08:08 Dose: 5 mg Atorvastatin Calcium (Lipitor*) 10 mg PO 0900 [facility] Last Admin: 03/04/18 08:08 Dose: 10 mg Bisacodyl (Dulcolax Supp*) 10 mg [place] DAILY PRN PRN Reason: CONSTIPATION Bupropion HCl (Wellbutrin Xl *) 150 mg PO 0900 [facility] Last Admin: 03/04/18 09:44 Dose: 150 mg Carbidopa/Levodopa (Sinemet 25/100 Tab(*)) 1 tab PO 0730,1130,1630 [facility] Last Admin: 03/04/18 08:08 Dose: 1 tab Citalopram Hydrobromide (Celexa Tab*) 20 mg PO 0900 [facility] Last Admin: 03/04/18 08:08 Dose: 20 mg Cyclobenzaprine HCl (Flexeril Tab*) 10 mg PO TID PRN PRN Reason: muscle spasm Last Admin: 03/02/18 20:36 Dose: 10 mg Docusate Sodium (Colace Cap*) 200 mg PO 0900,2100 [facility] Last Admin: 03/04/18 08:08 Dose: 200 mg Fentanyl Citrate (Fentanyl*) 25 mcg IV SLOW PU Q1H PRN PRN Reason: PAIN Last Admin: 03/03/18 11:27 Dose: 25 mcg Heparin Sodium (Porcine) (Heparin Vial(*)) 5,000 units SUBCUT Q8HR [facility] Hydralazine HCl (Apresoline Iv*) 10 mg IV SLOW PU Q4HR PRN PRN Reason: BLOOD PRESSURE Last Admin: 03/02/18 23:55 Dose: 10 mg Magnesium Hydroxide (Milk Of Magnesia Liq*) 30 ml PO Q6H PRN PRN Reason: CONSTIPATION Melatonin (Melatonin) 3 mg PO BEDTIME PRN; Protocol PRN Reason: Sleep Last Admin: 03/02/18 20:37 Dose: 3 mg Memantine (Namenda Tab*) 10 mg PO 0900,2100 [facility] Last Admin: 03/04/18 08:08 Dose: 10 mg Metoprolol Tartrate (Lopressor Iv*) 5 mg IV Q4H PRN PRN Reason: BLOOD PRESSURE Last Admin: 03/03/18 02:15 Dose: 5 mg Metoprolol Tartrate (Lopressor Tab*) 25 mg PO BID [facility] Last Admin: 03/04/18 09:44 Dose: 25 mg Omeprazole (Prilosec Cap*) 20 mg PO DAILY@0600 [facility] Last Admin: 03/04/18 05:35 Dose: 20 mg Ondansetron HCl (Zofran Odt Tab*) 4 mg PO Q6H PRN PRN Reason: n/v Last Admin: 03/03/18 11:28 Dose: 4 mg Senna (Senokot Tab*) 2 tab PO BEDTIME [facility] Last Admin: 03/03/18 19:55 Dose: 2 tab Vital Signs - 8 hr 03/04/18 03/04/18 03/04/18 03:29 04:06 07:34 Temperature 98.2 F 98.4 F Pulse Rate 99 102 91 Respiratory 16 16 Rate Blood Pressure 170/71 149/81 174/75 (mmHg) O2 Sat by Pulse 94 95 Oximetry 03/04/18 08:00 Temperature Pulse Rate Respiratory 16 Rate Blood Pressure (mmHg) O2 Sat by Pulse Oximetry Oxygen Devices in Use Now: None Appearance: 67 yo F in nAD, aAOx2 Eyes: No Scleral Icterus, PERRLA Ears/Nose/Mouth/Throat: NL Teeth, Lips, Gums, Mucous Membranes Moist Neck: NL Appearance and Movements; NL JVP, Trachea Midline Respiratory: Symmetrical Chest Expansion and Respiratory Effort, Clear to Auscultation Cardiovascular: NL Sounds; No Murmurs; No JVD, RRR Abdominal: NL Sounds; No Tenderness; No Distention, No Hepatosplenomegaly Lymphatic: No Cervical Adenopathy Extremities: No Edema, No Clubbing, Cyanosis Skin: No Rash or Ulcers, No Nodules or Sclerosis, - - thoracic back incision not inspected Neurological: Alert and Oriented x 3, NL Muscle Strength and Tone Result Diagrams: 03/03/18 05:09 03/03/18 05:09 Microbiology and Other Data: Microbiology 02/25/18 22:14 Urine Culture - Final Urine Assess/Plan/Problems-Billing Assessment: 67 yo female with hx of parkinsons, dementia, CVA x3, frequent falls , depression/anxiety who fell at home found to have a T9 column fracture - Patient Problems (1) T8 vertebral fracture Comment: -s/p surgery on T9 fx on 03/02/18-doing well. Needs TLSO brace to be OOB -PT/OT PMRU ordered - may be able to d/c [place] once brace is in place (2) Dementia Comment: - mild - continue Namenda (3) Depression with anxiety Comment: - continue celexa and wellbutrin (4) History of CVA (cerebrovascular accident) Comment: - continue statin, hold ASA (5) Parkinsons disease Comment: - continue Sinemet - cont PT (6) HTN (hypertension) Comment: cont norvasc, added hydralazine, lopressor IV prn started lopressor PO on 03/04/18 (7) DVT prophylaxis Comment: scds, HSQ Status and Disposition: Inpatient
--- NOTE | 2018-03-04 12:45 | PN ---
Progress Note - Progress Note Date of Service: 03/04/18 SOAP: Subjective: []No events ON. On regular floor. [place]. Tolerates po. Pain well controlled. Not OOB yet. Able to be HOB 90' Objective: [] VSS Wounds s,c,d. AAOx3 , Face symmetric Motor 4-5/5/all extremities, mildy rt foot drop (baseline) Sensory grossly intact to light touch. Assessment: []67 yo f fall T9 chance fracture POD#2 MIS T6-T12 pedicle screws instrumentation. Plan: []Monitor VS, Neurochecks OOB with assistance. PT evaluation TEDS and SCD, Insentive Spirometer. DC boone TLSO brace when OOB DC planning. Greatly appreciate IM care. Daren Garcia MD
[2018-03-04] MEDS: Heparin VIAL(*) 5000 UNITS/ML VIAL (FIVE THOUSAND) SUBCUT SCH ×2 (13:29→21:50)
[2018-03-04] MEDS: Senna TAB PO SCH (21:48)
[2018-03-05] MEDS: hydrALAZINE IV* 20 MG/ML VIAL IV SLOW PU PRN (04:29)
[2018-03-05] MEDS: Omeprazole CAP* 20 MG PO SCH (06:34)
[2018-03-05] MEDS: Heparin VIAL(*) 5000 UNITS/ML VIAL (FIVE THOUSAND) SUBCUT SCH ×3 (06:35→21:19)
[2018-03-05] MEDS: Magnesium Hydroxide LIQ* 30 ML UDC PO PRN (08:28)
[2018-03-05] MEDS: Metoprolol Tartrate TAB* 25 MG PO SCH ×2 (08:29→21:19)
[2018-03-05] MEDS: Acetaminophen TAB* 325 MG PO PRN (08:29)
[2018-03-05] MEDS: Atorvastatin* 10 MG TAB PO SCH (08:29)
[2018-03-05] MEDS: BuPROPion XL* 150 MG TAB.XL PO SCH (08:29)
[2018-03-05] MEDS: amLODIPine TAB* 5 MG PO SCH (08:29)
[2018-03-05] MEDS: Memantine TAB* 10 MG PO SCH ×2 (08:29→21:19)
[2018-03-05] MEDS: Carbidopa/Levodop 25/100 MG TAB(*) PO SCH ×3 (08:29→16:48)
[2018-03-05] MEDS: Citalopram TAB* 20 MG PO SCH (08:29)
[2018-03-05] MEDS: Docusate CAP* 100 MG PO SCH ×2 (08:30→21:18)
--- NOTE | 2018-03-05 13:33 | PN ---
Progress Note - Progress Note Date of Service: 03/05/18 SOAP: Subjective: []No events ON. On regular floor. Britton discontinued. Tolerates po. Pain well controlled. Able to stand and pivot. Objective: []VSS Wounds s,c,d. AAOx3 , Face symmetric Motor 4-5/5/all extremities, mild Rt foot drop (baseline) Sensory grossly intact to light touch. Assessment: []67 yo f fall T9 chance fracture POD#3 MIS T6-T12 pedicle screws instrumentation. Plan: []Monitor VS, Neurochecks OOB with assistance. PT evaluation TEDS and SCD, Insentive Spirometer. TLSO brace when OOB only. DC planning. Greatly appreciate IM care. Daren Garcia MD
[2018-03-05] MEDS ORDERED: Levofloxacin TAB* 500 MG ONE (14:03)
[2018-03-05] MEDS: Levofloxacin TAB* 500 MG PO SCH (14:09)
--- NOTE | 2018-03-05 14:22 | PN ---
Subjective Date of Service: 03/05/18 Interval History: Pt is tired today. no post op pain. Using TLSO brace. Objective Active Medications: Acetaminophen (Tylenol Tab*) 650 mg PO Q6H PRN PRN Reason: FEVER/PAIN Last Admin: 03/05/18 08:29 Dose: 650 mg Amlodipine Besylate (Norvasc Tab*) 5 mg PO 0900 [facility] Last Admin: 03/05/18 08:29 Dose: 5 mg Atorvastatin Calcium (Lipitor*) 10 mg PO 0900 [facility] Last Admin: 03/05/18 08:29 Dose: 10 mg Bisacodyl (Dulcolax Supp*) 10 mg [place] DAILY PRN PRN Reason: CONSTIPATION Bupropion HCl (Wellbutrin Xl *) 150 mg PO 0900 [facility] Last Admin: 03/05/18 08:29 Dose: 150 mg Carbidopa/Levodopa (Sinemet 25/100 Tab(*)) 1 tab PO 0730,1130,1630 [facility] Last Admin: 03/05/18 12:13 Dose: 1 tab Citalopram Hydrobromide (Celexa Tab*) 20 mg PO 0900 [facility] Last Admin: 03/05/18 08:29 Dose: 20 mg Cyclobenzaprine HCl (Flexeril Tab*) 10 mg PO TID PRN PRN Reason: muscle spasm Last Admin: 03/02/18 20:36 Dose: 10 mg Docusate Sodium (Colace Cap*) 200 mg PO 0900,2100 [facility] Last Admin: 03/05/18 08:30 Dose: 200 mg Fentanyl Citrate (Fentanyl*) 25 mcg IV SLOW PU Q1H PRN PRN Reason: PAIN Last Admin: 03/03/18 11:27 Dose: 25 mcg Heparin Sodium (Porcine) (Heparin Vial(*)) 5,000 units SUBCUT Q8HR [facility] Last Admin: 03/05/18 14:08 Dose: 5,000 units Hydralazine HCl (Apresoline Iv*) 10 mg IV SLOW PU Q4HR PRN PRN Reason: BLOOD PRESSURE Last Admin: 03/05/18 04:29 Dose: 10 mg Levofloxacin (Levaquin Tab*) 500 mg PO Q24H [facility] Last Admin: 03/05/18 14:09 Dose: 500 mg Magnesium Hydroxide (Milk Of Magnesia Liq*) 30 ml PO Q6H PRN PRN Reason: CONSTIPATION Last Admin: 03/05/18 08:28 Dose: 30 ml Melatonin (Melatonin) 3 mg PO BEDTIME PRN; Protocol PRN Reason: Sleep Last Admin: 03/02/18 20:37 Dose: 3 mg Memantine (Namenda Tab*) 10 mg PO 0900,2100 [facility] Last Admin: 03/05/18 08:29 Dose: 10 mg Metoprolol Tartrate (Lopressor Iv*) 5 mg IV Q4H PRN PRN Reason: BLOOD PRESSURE Last Admin: 03/03/18 02:15 Dose: 5 mg Metoprolol Tartrate (Lopressor Tab*) 25 mg PO BID [facility] Last Admin: 03/05/18 08:29 Dose: 25 mg Omeprazole (Prilosec Cap*) 20 mg PO DAILY@0600 [facility] Last Admin: 03/05/18 06:34 Dose: 20 mg Ondansetron HCl (Zofran Odt Tab*) 4 mg PO Q6H PRN PRN Reason: n/v Last Admin: 03/03/18 11:28 Dose: 4 mg Senna (Senokot Tab*) 2 tab PO BEDTIME [facility] Last Admin: 03/04/18 21:48 Dose: 2 tab Vital Signs - 8 hr 03/05/18 03/05/18 03/05/18 07:47 08:00 11:28 Temperature 98.5 F 98.9 F Pulse Rate 78 62 Respiratory 24 16 24 Rate Blood Pressure 148/76 114/69 (mmHg) O2 Sat by Pulse 97 98 Oximetry Oxygen Devices in Use Now: None Appearance: 67 yo F in nAD, aAOx2, poor historian Eyes: No Scleral Icterus, PERRLA Ears/Nose/Mouth/Throat: NL Teeth, Lips, Gums, Mucous Membranes Moist Neck: NL Appearance and Movements; NL JVP, Trachea Midline Respiratory: Symmetrical Chest Expansion and Respiratory Effort, Clear to Auscultation Cardiovascular: NL Sounds; No Murmurs; No JVD, No Edema Abdominal: NL Sounds; No Tenderness; No Distention Lymphatic: No Cervical Adenopathy Extremities: No Edema, No Clubbing, Cyanosis Skin: No Rash or Ulcers, No Nodules or Sclerosis, - - post op incision on back not uncovered for inspection Neurological: NL Muscle Strength and Tone Result Diagrams: 03/03/18 05:09 03/03/18 05:09 Microbiology and Other Data: Microbiology 02/25/18 22:14 Urine Culture - Final Urine Assess/Plan/Problems-Billing Assessment: 67 yo female with hx of parkinsons, dementia, CVA x3, frequent falls , depression/anxiety who fell at home found to have a T9 column fracture - Patient Problems (1) T8 vertebral fracture Comment: -s/p surgery on T9 fx on 03/02/18-doing well. TLSO brace to be used OOB -plan to d/c to [facility] on Thursday03/08/18 (2) Dementia Comment: - mild - continue Namenda (3) Depression with anxiety Comment: - continue celexa and wellbutrin (4) History of CVA (cerebrovascular accident) Comment: - continue statin, ASA to be restarted at d/c (5) Parkinsons disease Comment: - continue Sinemet - cont PT (6) HTN (hypertension) Comment: cont norvasc started lopressor PO on 03/04/18 (7) UTI (urinary tract infection) Comment: h/o frequent UTI's in the past Pseudomonas positive urine cx started Levaquin on 03/05/18 (8) DVT prophylaxis Comment: scds, HSQ Status and Disposition: Inpatient
[2018-03-05] MEDS: Senna TAB PO SCH (21:19)
[2018-03-06] MEDS: Heparin VIAL(*) 5000 UNITS/ML VIAL (FIVE THOUSAND) SUBCUT SCH ×3 (06:03→23:13)
[2018-03-06] MEDS: Omeprazole CAP* 20 MG PO SCH (06:03)
[2018-03-06] MEDS: Docusate CAP* 100 MG PO SCH ×2 (08:10→23:11)
[2018-03-06] MEDS: BuPROPion XL* 150 MG TAB.XL PO SCH (08:10)
[2018-03-06] MEDS: Atorvastatin* 10 MG TAB PO SCH (08:10)
[2018-03-06] MEDS: Citalopram TAB* 20 MG PO SCH (08:10)
[2018-03-06] MEDS: Metoprolol Tartrate TAB* 25 MG PO SCH ×2 (08:10→23:13)
[2018-03-06] MEDS: amLODIPine TAB* 5 MG PO SCH (08:10)
[2018-03-06] MEDS: Carbidopa/Levodop 25/100 MG TAB(*) PO SCH ×3 (08:10→16:54)
[2018-03-06] MEDS: Memantine TAB* 10 MG PO SCH ×2 (08:11→23:13)
--- NOTE | 2018-03-06 11:25 | PN ---
Progress Note - Progress Note Date of Service: 03/06/18 SOAP: Subjective: []No events ON. On regular floor. Voids. Tolerates po. Pain well controlled. Ambulates to chair with assistance. Objective: []VSS Wounds s,c,d. AAOx3 , Face symmetric Motor 4-5/5/all extremities, mild Rt foot drop (baseline) Sensory grossly intact to light touch. Assessment: []67 yo f fall T9 chance fracture POD#4 MIS T6-T12 pedicle screws instrumentation. Plan: []Monitor VS, Neurochecks OOB with assistance and brace. PT , Encourage ambulation. TEDS and SCD, Insentive Spirometer. TLSO brace when OOB only. DC planning. Discussed in extend with patient's at bedside. Greatly appreciate IM care. Daren Garcia MD
[2018-03-06] MEDS: Levofloxacin TAB* 500 MG PO SCH (14:08)
--- NOTE | 2018-03-06 17:16 | PN ---
Subjective Date of Service: 03/06/18 Interval History: no complaints, no pain. not oriented to name of town or hospital but otherwise oriented. denies chest pain, sob, back pain, abdominal pain. BM+ Objective Active Medications: Acetaminophen (Tylenol Tab*) 650 mg PO Q6H PRN PRN Reason: FEVER/PAIN Last Admin: 03/05/18 08:29 Dose: 650 mg Amlodipine Besylate (Norvasc Tab*) 5 mg PO 0900 [facility] Last Admin: 03/06/18 08:10 Dose: 5 mg Atorvastatin Calcium (Lipitor*) 10 mg PO 0900 [facility] Last Admin: 03/06/18 08:10 Dose: 10 mg Bisacodyl (Dulcolax Supp*) 10 mg [place] DAILY PRN PRN Reason: CONSTIPATION Bupropion HCl (Wellbutrin Xl *) 150 mg PO 0900 [facility] Last Admin: 03/06/18 08:10 Dose: 150 mg Carbidopa/Levodopa (Sinemet 25/100 Tab(*)) 1 tab PO 0730,1130,1630 [facility] Last Admin: 03/06/18 16:54 Dose: 1 tab Citalopram Hydrobromide (Celexa Tab*) 20 mg PO 0900 [facility] Last Admin: 03/06/18 08:10 Dose: 20 mg Cyclobenzaprine HCl (Flexeril Tab*) 10 mg PO TID PRN PRN Reason: muscle spasm Last Admin: 03/02/18 20:36 Dose: 10 mg Docusate Sodium (Colace Cap*) 200 mg PO 0900,2100 [facility] Last Admin: 03/06/18 08:10 Dose: 200 mg Heparin Sodium (Porcine) (Heparin Vial(*)) 5,000 units SUBCUT Q8HR [facility] Last Admin: 03/06/18 14:09 Dose: 5,000 units Hydralazine HCl (Apresoline Iv*) 10 mg IV SLOW PU Q4HR PRN PRN Reason: BLOOD PRESSURE Last Admin: 03/05/18 04:29 Dose: 10 mg Levofloxacin (Levaquin Tab*) 500 mg PO Q24H [facility] Last Admin: 03/06/18 14:08 Dose: 500 mg Magnesium Hydroxide (Milk Of Magnesia Liq*) 30 ml PO Q6H PRN PRN Reason: CONSTIPATION Last Admin: 03/05/18 08:28 Dose: 30 ml Melatonin (Melatonin) 3 mg PO BEDTIME PRN; Protocol PRN Reason: Sleep Last Admin: 03/02/18 20:37 Dose: 3 mg Memantine (Namenda Tab*) 10 mg PO 0900,2100 [facility] Last Admin: 03/06/18 08:11 Dose: 10 mg Metoprolol Tartrate (Lopressor Iv*) 5 mg IV Q4H PRN PRN Reason: BLOOD PRESSURE Last Admin: 03/03/18 02:15 Dose: 5 mg Metoprolol Tartrate (Lopressor Tab*) 25 mg PO BID [facility] Last Admin: 03/06/18 08:10 Dose: 25 mg Omeprazole (Prilosec Cap*) 20 mg PO DAILY@0600 [facility] Last Admin: 03/06/18 06:03 Dose: 20 mg Ondansetron HCl (Zofran Odt Tab*) 4 mg PO Q6H PRN PRN Reason: n/v Last Admin: 03/03/18 11:28 Dose: 4 mg Senna (Senokot Tab*) 2 tab PO BEDTIME [facility] Last Admin: 03/05/18 21:19 Dose: 2 tab Vital Signs - 8 hr 03/06/18 03/06/18 11:41 15:34 Temperature 97.6 F 98.0 F Pulse Rate 57 65 Respiratory 18 17 Rate Blood Pressure 129/65 125/63 (mmHg) O2 Sat by Pulse 95 99 Oximetry Oxygen Devices in Use Now: None Appearance: NAD Eyes: No Scleral Icterus, PERRLA Ears/Nose/Mouth/Throat: NL Teeth, Lips, Gums, Mucous Membranes Moist Neck: NL Appearance and Movements; NL JVP, Trachea Midline Respiratory: Symmetrical Chest Expansion and Respiratory Effort, Clear to Auscultation Abdominal: NL Sounds; No Tenderness; No Distention, No Hepatosplenomegaly Lymphatic: No Cervical Adenopathy Extremities: No Edema Skin: No Rash or Ulcers, No Nodules or Sclerosis Neurological: - - oriented to name, "hospital", 2018, [place] Nutrition: Taking PO's Result Diagrams: 03/03/18 05:09 03/03/18 05:09 Microbiology and Other Data: Microbiology 03/03/18 10:19 Urine Urine Culture - Final Pseudomonas Aeruginosa 02/25/18 22:14 Urine Urine Culture - Final Assess/Plan/Problems-Billing Assessment: 67 yo female with hx of parkinsons, dementia, CVA x3, frequent falls , depression/anxiety who fell at home found to have a T9 column fracture - Patient Problems (1) T8 vertebral fracture Current Visit: Yes Status: Acute Code(s): S22.069A - UNSP FRACTURE OF T7-T8 VERTEBRA, INIT FOR CLOS FX SNOMED Code(s): 367409998 Comment: -s/p surgery on T9 fx on 03/02/18-doing well. TLSO brace to be used OOB -plan to d/c to [facility] on Thursday03/08/18 no pain issues. (2) HTN (hypertension) Current Visit: Yes Status: Acute Code(s): I10 - ESSENTIAL (PRIMARY) HYPERTENSION SNOMED Code(s): 38546264 Comment: cont norvasc started lopressor PO on 03/04/18 (3) UTI (urinary tract infection) Current Visit: Yes Status: Acute Comment: h/o frequent UTI's in the past Pseudomonas positive urine cx started Levaquin on 03/05/18 (4) DVT prophylaxis Current Visit: Yes Status: Chronic Code(s): MTR0452 - SNOMED Code(s): 743606589 Comment: scds, HSQ (5) Dementia Current Visit: Yes Status: Chronic Code(s): F03.90 - UNSPECIFIED DEMENTIA WITHOUT BEHAVIORAL DISTURBANCE SNOMED Code(s): 16892232 Comment: - mild - continue Namenda (6) Depression with anxiety Current Visit: Yes Status: Chronic Code(s): F41.8 - OTHER SPECIFIED ANXIETY DISORDERS SNOMED Code(s): 44328730 Comment: - continue celexa and wellbutrin (7) History of CVA (cerebrovascular accident) Current Visit: Yes Status: Chronic Code(s): Z86.73 - PRSNL HX OF TIA (TIA), AND CEREB INFRC W/O RESID DEFICITS SNOMED Code(s): 936382336 Comment: - continue statin, ASA to be restarted at d/c (8) Parkinsons disease Current Visit: Yes Status: Chronic Code(s): G20 - PARKINSON'S DISEASE SNOMED Code(s): 47629296 Comment: - continue Sinemet - cont PT Status and Disposition: Inpatient
[2018-03-06] MEDS: Senna TAB PO SCH (23:12)
[2018-03-07] MEDS: Heparin VIAL(*) 5000 UNITS/ML VIAL (FIVE THOUSAND) SUBCUT SCH ×3 (06:08→21:10)
[2018-03-07] MEDS: Omeprazole CAP* 20 MG PO SCH (06:08)
[2018-03-07] MEDS: Citalopram TAB* 20 MG PO SCH (08:14)
[2018-03-07] MEDS: Memantine TAB* 10 MG PO SCH ×2 (08:14→21:07)
[2018-03-07] MEDS: Atorvastatin* 10 MG TAB PO SCH (08:14)
[2018-03-07] MEDS: Carbidopa/Levodop 25/100 MG TAB(*) PO SCH ×3 (08:14→16:18)
[2018-03-07] MEDS: Metoprolol Tartrate TAB* 25 MG PO SCH ×2 (08:14→21:08)
[2018-03-07] MEDS: Docusate CAP* 100 MG PO SCH ×2 (08:14→21:09)
[2018-03-07] MEDS: BuPROPion XL* 150 MG TAB.XL PO SCH (08:14)
[2018-03-07] MEDS: amLODIPine TAB* 5 MG PO SCH (08:15)
[2018-03-07] MEDS: Levofloxacin TAB* 500 MG PO SCH (13:31)
--- NOTE | 2018-03-07 14:50 | PN ---
Progress Note - Progress Note Date of Service: 03/07/18 SOAP: Subjective: []No events ON. Voids. Tolerates po well. Pain well controlled. Ambulates to chair with assistance. Can move side to side easily in bed. Objective: []VSS Wounds s,c,d. AAOx3 , Face symmetric Motor 4-5/5/all extremities, mild Rt foot drop (baseline) Sensory grossly intact to light touch. Assessment: []67 yo f fall T9 chance fracture POD#5 MIS T6-T12 pedicle screws instrumentation. Plan: []Monitor VS, Neurochecks OOB with assistance and brace. PT , Encourage ambulation. TEDS and SCD, Insentive Spirometer. TLSO brace when OOB only. DC planning to rehab tomorrow. Discussed in extend again with patient's at bedside. No lifting, no bending, no driving until next office visit. Keep incisions dry for two more days. May shower. No baths. Follow up in office in two weeks with upright XR of T spine. Greatly appreciate IM care. Daren Garcia MD
--- NOTE | 2018-03-07 17:52 | PN ---
Subjective Date of Service: 03/07/18 Interval History: Denies SOB, abdominal pain, chest pain, F/C, N/V, D/C. Eating well. BM 2 days ago. To chair w/o issue. Objective Active Medications: Acetaminophen (Tylenol Tab*) 650 mg PO Q6H PRN PRN Reason: FEVER/PAIN Last Admin: 03/05/18 08:29 Dose: 650 mg Amlodipine Besylate (Norvasc Tab*) 5 mg PO 0900 [facility] Last Admin: 03/07/18 08:15 Dose: 5 mg Atorvastatin Calcium (Lipitor*) 10 mg PO 0900 [facility] Last Admin: 03/07/18 08:14 Dose: 10 mg Bisacodyl (Dulcolax Supp*) 10 mg [place] DAILY PRN PRN Reason: CONSTIPATION Bupropion HCl (Wellbutrin Xl *) 150 mg PO 0900 [facility] Last Admin: 03/07/18 08:14 Dose: 150 mg Carbidopa/Levodopa (Sinemet 25/100 Tab(*)) 1 tab PO 0730,1130,1630 [facility] Last Admin: 03/07/18 16:18 Dose: 1 tab Citalopram Hydrobromide (Celexa Tab*) 20 mg PO 0900 [facility] Last Admin: 03/07/18 08:14 Dose: 20 mg Cyclobenzaprine HCl (Flexeril Tab*) 10 mg PO TID PRN PRN Reason: muscle spasm Last Admin: 03/02/18 20:36 Dose: 10 mg Docusate Sodium (Colace Cap*) 200 mg PO 0900,2100 [facility] Last Admin: 03/07/18 08:14 Dose: 200 mg Heparin Sodium (Porcine) (Heparin Vial(*)) 5,000 units SUBCUT Q8HR [facility] Last Admin: 03/07/18 13:31 Dose: 5,000 units Hydralazine HCl (Apresoline Iv*) 10 mg IV SLOW PU Q4HR PRN PRN Reason: BLOOD PRESSURE Last Admin: 03/05/18 04:29 Dose: 10 mg Levofloxacin (Levaquin Tab*) 500 mg PO Q24H [facility] Last Admin: 03/07/18 13:31 Dose: 500 mg Magnesium Hydroxide (Milk Of Magnesia Liq*) 30 ml PO Q6H PRN PRN Reason: CONSTIPATION Last Admin: 03/05/18 08:28 Dose: 30 ml Melatonin (Melatonin) 3 mg PO BEDTIME PRN; Protocol PRN Reason: Sleep Last Admin: 03/02/18 20:37 Dose: 3 mg Memantine (Namenda Tab*) 10 mg PO 0900,2100 [facility] Last Admin: 03/07/18 08:14 Dose: 10 mg Metoprolol Tartrate (Lopressor Iv*) 5 mg IV Q4H PRN PRN Reason: BLOOD PRESSURE Last Admin: 03/03/18 02:15 Dose: 5 mg Metoprolol Tartrate (Lopressor Tab*) 25 mg PO BID [facility] Last Admin: 03/07/18 08:14 Dose: 25 mg Omeprazole (Prilosec Cap*) 20 mg PO DAILY@0600 [facility] Last Admin: 03/07/18 06:08 Dose: 20 mg Ondansetron HCl (Zofran Odt Tab*) 4 mg PO Q6H PRN PRN Reason: n/v Last Admin: 03/03/18 11:28 Dose: 4 mg Senna (Senokot Tab*) 2 tab PO BEDTIME [facility] Last Admin: 03/06/18 23:12 Dose: 2 tab Vital Signs - 8 hr 03/07/18 03/07/18 11:25 15:40 Temperature 98.0 F 98.3 F Pulse Rate 57 65 Respiratory 14 18 Rate Blood Pressure 116/52 110/52 (mmHg) O2 Sat by Pulse 95 96 Oximetry Oxygen Devices in Use Now: None Appearance: NAD Eyes: No Scleral Icterus, PERRLA Ears/Nose/Mouth/Throat: NL Teeth, Lips, Gums, Mucous Membranes Moist Respiratory: Symmetrical Chest Expansion and Respiratory Effort, Clear to Auscultation Cardiovascular: NL Sounds; No Murmurs; No JVD, RRR Abdominal: NL Sounds; No Tenderness; No Distention, No Hepatosplenomegaly Extremities: No Edema Skin: No Rash or Ulcers, No Nodules or Sclerosis Neurological: NL Sensation, NL Muscle Strength and Tone, - - oriented to name, situation, "hospital" but not year Nutrition: Taking PO's Result Diagrams: 03/03/18 05:09 03/03/18 05:09 Microbiology and Other Data: Microbiology 03/03/18 10:19 Urine Urine Culture - Final Pseudomonas Aeruginosa 02/25/18 22:14 Urine Urine Culture - Final Assess/Plan/Problems-Billing Assessment: 67 yo female with hx of parkinsons, dementia, CVA x3, frequent falls , depression/anxiety who fell at home found to have a T9 column fracture. PSDA UTI. To SNF tomorrow. - Patient Problems (1) T8 vertebral fracture Current Visit: Yes Status: Acute Code(s): S22.069A - UNSP FRACTURE OF T7-T8 VERTEBRA, INIT FOR CLOS FX SNOMED Code(s): 738928935 Comment: -s/p surgery on T9 fx on 03/02/18-doing well. TLSO brace to be used OOB -plan to d/c [facility] on Thursday03/08/18 no pain issues. f/u with NS with upright Xray in 2 weeks (2) HTN (hypertension) Current Visit: Yes Status: Acute Code(s): I10 - ESSENTIAL (PRIMARY) HYPERTENSION SNOMED Code(s): 87700163 Comment: cont norvasc 5 and metoprolol 25mg po BID (3) UTI (urinary tract infection) Current Visit: Yes Status: Acute Comment: h/o frequent UTI's in the past Pseudomonas positive urine cx started Levaquin on 03/05/18 (4) DVT prophylaxis Current Visit: Yes Status: Chronic Code(s): ZQY0864 - SNOMED Code(s): 405447286 Comment: scds, HSQ (5) Dementia Current Visit: Yes Status: Chronic Code(s): F03.90 - UNSPECIFIED DEMENTIA WITHOUT BEHAVIORAL DISTURBANCE SNOMED Code(s): 75985393 Comment: - mild - continue Namenda (6) Depression with anxiety Current Visit: Yes Status: Chronic Code(s): F41.8 - OTHER SPECIFIED ANXIETY DISORDERS SNOMED Code(s): 23642084 Comment: - continue celexa and wellbutrin (7) History of CVA (cerebrovascular accident) Current Visit: Yes Status: Chronic Code(s): Z86.73 - PRSNL HX OF TIA (TIA), AND CEREB INFRC W/O RESID DEFICITS SNOMED Code(s): 996751572 Comment: - continue statin, ASA to be restarted at d/c (8) Parkinsons disease Current Visit: Yes Status: Chronic Code(s): G20 - PARKINSON'S DISEASE SNOMED Code(s): 55287534 Comment: - continue Sinemet - cont PT Status and Disposition: Inpatient, to [facility] 03/08
[2018-03-07] MEDS: Senna TAB PO SCH (21:08)
--- NOTE | 2018-03-08 01:09 | DS ---
DISCHARGE SUMMARY: DATE OF ADMISSION: 02/26/18 DATE OF DISCHARGE: 03/08/18 ADMITTING PROVIDER: Cameron Slade MD PRIMARY CARE PHYSICIAN: Ezequiel Ruggiero MD ATTENDING PHYSICIAN ON DAY OF DISCHARGE: Og Royal MD CHIEF COMPLAINT: Fall with back pain. PRINCIPAL DIAGNOSES: Chance type 3 T9 fracture, status post bilateral pedicle screws at T6, T7, T8, T10, T11, T12 with Dr. Lam Garcia. HISTORY OF PRESENT ILLNESS AND HOSPITAL COURSE: Tiera Forrest is a 67-year- old female with past medical history of dementia, Parkinson's disease, strokes, frequent falls, anxiety, and depression. Please see H&P of Cameron Salde for full details, but briefly, she lost balance falling backwards while using her walker experiencing immediate mid back pain. She denied any loss of consciousness or head impact. She presented to [facility] where CT L-spine noncontrast revealed a Chance type 3 fracture of T9, so [place] [facility] [place]. There, further imaging included a Lumbar spine CT which demonstrated no acute findings, except minor underlying osteoarthritis. Cervical spine demonstrated no fracture, but with multilevel degenerative disk disease and osteophyte formation dorsally at T1 to T2. Thoracic C-spine, impression was a Chance type 3 column fracture of T9 with mild associated paravertebral hematoma. Predisposing decreased bone density and diffuse ankylosis of the thoracic spine and facet joints, trace bilateral dependent pleural effusions. Dr. Garcia consulted the next day and considered the fracture to be quite extensive and highly unstable. She was on spinal precautions, bed rest. The family was advised that the mortality rate was approximately 18% in the first month and 30% in the first year. They had MRI of the thoracic spine obtained, which demonstrated kyphosis of the thoracic spine without subluxation at any level, completely reduced displacement of the T9 Chance fracture compared to the CT of the 1 day prior. No additional fractures evident and no significant change in the small volume anterior and lateral paravertebral hematomas centered at T9 level. The patient had a transthoracic echocardiogram, which demonstrated ejection fraction of 60% to 65% , abnormal left ventricular diastolic function observed, but nondiagnostic. Left atrium was moderate to severely dilated. She had a hip, pelvis x-ray, no acute bony findings. Femur x-ray, no acute bony findings. A CT of the head showed chronic ischemic white matter changes with diffuse cerebral atrophy, no intracranial mass or hemorrhage noted. The patient eventually had bilateral T6 , T7, T8, T10, T11, T12 pedicle screws, stabilization of her T9 Chance type 3 fracture on 03/02/18 without complication. She used TLSO brace for out of bed activity and worked with physical therapy. Recommended a longterm facility placement and family has decided [facility]. The patient was noted to have Pseudomonas aeruginosa on urine culture, sensitive to fluoroquinolones and has been treated with Levaquin since 03/05/18. She is scheduled to follow up with Dr. Garcia in 2 weeks with upright thoracic film prior. DISCHARGE MEDICATIONS: 1. Tylenol 650 mg p.o. q.6 hours p.r.n. 2. Amlodipine 5 mg p.o. daily (new). 3. Wellbutrin 150 mg p.o. daily. 4. Carbidopa levodopa 25-100 mg p.o. t.i.d. 5. Flexeril 10 mg p.o. t.i.d. p.r.n. (new). 6. Docusate 200 mg p.o. b.i.d. p.r.n. (new). 7. Lexapro 10 mg p.o. daily. 8. Levaquin 500 mg p.o. daily for 4 more tabs. 9. Memantine 10 mg p.o. b.i.d. 10. Metoprolol tartrate 25 mg p.o. b.i.d. (new). 11. Simvastatin 20 mg p.o. daily. 12. Aspirin 81 mg p.o. daily. 13. PreserVision AREDS soft gel 1 p.o. b.i.d. DISCHARGE DIET: Heart healthy. FOLLOWUP: Please follow up with Dr. Ruggiero after discharge from [facility] and follow up with Dr. Lam Garcia 2 weeks after discharge with the upright cervical spine films prior. She can shower, but not bathe for the next 2 days. TIME SPENT: Time spent on discharge 35 minutes. [id number]/[facility] #: [id number] MTDD
[2018-03-08] MEDS: Omeprazole CAP* 20 MG PO SCH (05:24)
[2018-03-08] MEDS: Heparin VIAL(*) 5000 UNITS/ML VIAL (FIVE THOUSAND) SUBCUT SCH (05:24)
[2018-03-08 07:57] VITALS: BP 151/66
[2018-03-08] MEDS: Carbidopa/Levodop 25/100 MG TAB(*) PO SCH (08:01)
[2018-03-08] MEDS: Docusate CAP* 100 MG PO SCH (08:01)
[2018-03-08] MEDS: Memantine TAB* 10 MG PO SCH (08:02)
[2018-03-08] MEDS: Atorvastatin* 10 MG TAB PO SCH (08:02)
[2018-03-08] MEDS: Metoprolol Tartrate TAB* 25 MG PO SCH (08:02)
[2018-03-08] MEDS: BuPROPion XL* 150 MG TAB.XL PO SCH (08:02)
[2018-03-08] MEDS: amLODIPine TAB* 5 MG PO SCH (08:02)
[2018-03-08] MEDS: Citalopram TAB* 20 MG PO SCH (08:02)
[2018-03-08] MEDS: Magnesium Hydroxide LIQ* 30 ML UDC PO PRN (08:15)
== END 2018-03-08 10:17 | DRG 516 ==
LOC: ED 20:49 → MED 02-26 03:15 → ICU 03-02 15:50 → SSU 03-03 10:07
PROVIDERS: ADMIT Hospitalist; ATTEND Internal Medicine
PROC: 0PH404Z Insertion of Internal Fixation Device into Thoracic Vertebra, Open Approach (ICD-10-PCS; principal; 2018-03-02 07:30)
DX: S22.078A Other fracture of T9-T10 vertebra, initial encounter for closed fracture (principal); N39.0 Urinary tract infection, site not specified; G20 Parkinson's disease; F02.80 Dementia in other diseases classified elsewhere, unspecified severity, without behavioral disturbance, psychotic disturbance, mood disturbance, and anxiety; W18.39XA Other fall on same level, initial encounter; M43.24 Fusion of spine, thoracic region; I10 Essential (primary) hypertension; B96.5 Pseudomonas (aeruginosa) (mallei) (pseudomallei) as the cause of diseases classified elsewhere; M47.9 Spondylosis, unspecified; M50.30 Other cervical disc degeneration, unspecified cervical region; M25.78 Osteophyte, vertebrae; F41.8 Other specified anxiety disorders; M21.371 Foot drop, right foot; R32 Unspecified urinary incontinence; E66.9 Obesity, unspecified; Y92.009 Unspecified place in unspecified non-institutional (private) residence as the place of occurrence of the external cause; Z91.81 History of falling; Z86.73 Personal history of transient ischemic attack (TIA), and cerebral infarction without residual deficits; Z79.82 Long term (current) use of aspirin; Z79.899 Other long term (current) drug therapy; Z88.5 Allergy status to narcotic agent; Z87.891 Personal history of nicotine dependence; Z68.34 Body mass index [BMI] 34.0-34.9, adult
CPT/HCPCS: 36415; 70450; 71250; 72070; 72080; 72125; 72128; 72131; 72146; 76001; 80048; 80053; 81003; 81015; 83735; 85025; 85027; 85610; 85730; 87077; 87086; 87186; 90732; 93005; 93306; 99213; 99285; A9270-GY; C1713; G0463; G8978-GP-CL; G8979-GP-CI; G8987-GO-CL; G8987-GO-CM; G8988-GO-CK; G8989-GO-CK; J0360; J0690; J1100; J1644; J2060; J2250; J2405; J2704; J3010; J3490

== ENCOUNTER 2019-07-03 08:40 | Emergency (ER) | payer MEDICARE, MEDICAID ==
[2019-07-03 08:54] VITALS: BP 160/80
--- NOTE | 2019-07-03 09:02 | UC ---
Complaint Female HPI - HPI Summary HPI Summary: patient with history of dementia comes to urgent care with who is primary care provider----she has increase confusion , vomiting, not voiding no fevers--did not eat or drink yesterday--she has had a small piece of bagel this am and 4 ounces of Gatorade. He believes she may have a uti - History Of Current Complaint Chief Complaint: UCGU Stated Complaint: UTI Time Seen by Provider: 07/03/19 08:46 Hx Obtained From: Family/Sr Community Manager Hx From Patient Unobtainable Due To: Dementia Hx Last Menstrual Period: draw in hand ?: No Onset/Duration: Sudden Onset, Lasting Days - day 2, Still Present Timing: Constant Pain Intensity: 0 Aggravating Factor(s): Other - food Alleviating Factor(s): Nothing Associated Signs And Symptoms: Positive: Nausea, Vomiting(# Of Episodes =) - 1 - Allergies/Home Medications Allergies/Adverse Reactions: Allergies Allergy/AdvReac Type Severity Reaction Status Date / Time codeine Allergy Rash And Verified 07/03/19 08:46 Itching PMH/Surg Hx/FS Hx/Imm Hx Previously Healthy: No Neurological History: Dementia, Other Other Neurological History: parkinsons Psychological History: Depression Other History Of: Anticoagulant Therapy - Aspirin Negative For: HIV, Hepatitis B, Hepatitis C - Surgical History Surgical History: Yes Surgery Procedure, Year, and Place: CHOLECYSTECTOMY. LAP BAND SURGERY. spinal fusion - Family History Known Family History: Positive: Other - Breast cancer - Social History Occupation: Disabled Lives: With Family Alcohol Use: None Alcohol Amount: beer occasionally Substance Use Type: None Smoking Status (MU): Former Smoker - Immunization History Most Recent Influenza Vaccination: Fall 2016 Most Recent Pneumonia Vaccination: 02/26/18 Review of Systems All Other Systems Reviewed And Are Negative: Yes Constitutional: Positive: Negative Skin: Positive: Negative Eyes: Positive: Negative ENT: Positive: Negative Respiratory: Positive: Negative Cardiovascular: Positive: Negative Gastrointestinal: Positive: Vomiting Genitourinary: Positive: Other - no urine for 24 hours Motor: Positive: Negative Neurovascular: Positive: Negative Musculoskeletal: Positive: Negative Neurological: Positive: Other - increased confusion Is Patient Immunocompromised?: No Physical Exam Triage Information Reviewed: Yes Completion Of Physical Exam Limited Due To: Dementia Appearance: No Pain Distress, Ill-Appearing - mild-moderate, Obese Vital Signs: Initial Vital Signs Temp 99.6 F 12/15/19 08:46 Pulse 83 07/03/19 08:46 Resp 14 07/03/19 08:46 BP 160/80 07/03/19 08:46 Pulse Ox 97 07/03/19 08:46 Vital Signs Reviewed: Yes Eye Exam: Normal Eyes: Positive: Conjunctiva Clear ENT Exam: Normal ENT: Positive: Normal ENT inspection, Hearing grossly normal. 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 Psychological Exam: Other - worse than her baseline Skin Exam: Normal Complaint Female Dx - Course Course Of Treatment: refused ambulance transfer to hospital, states he and his son will drive her -- - Differential Dx/Diagnosis Provider Diagnosis: Acute on chronic alteration in mental status, Dehydration symptoms, Hypertension Discharge ED - Sign-Out/Discharge Documenting (check all that apply): Patient Departure All imaging exams completed and their final reports reviewed: No Studies - Discharge Plan Condition: Guarded Disposition: HOME-RECOMMEND TO ED Patient Education Materials: Acute Delirium (ED) Referrals: Ezequiel Ruggiero MD [Primary Care Provider] - - Billing Disposition and Condition Condition: GUARDED Disposition: Home-Recommend to ED - Attestation Statements Provider Attestation: I was available for consult. This patient was seen by the MONI[facility]. The patient was not presented to , seen by or examined by mt -Evonne Kaiser MD
== END 2019-07-03 09:09 | disposition home health service (06) ==
LOC: UCEAST 08:40
DX: R41.82 Altered mental status, unspecified (principal); E86.0 Dehydration; I10 Essential (primary) hypertension; R11.10 Vomiting, unspecified; G20 Parkinson's disease; F02.80 Dementia in other diseases classified elsewhere, unspecified severity, without behavioral disturbance, psychotic disturbance, mood disturbance, and anxiety; Z87.891 Personal history of nicotine dependence; Z79.82 Long term (current) use of aspirin; Z88.5 Allergy status to narcotic agent
CPT/HCPCS: 99212; G0463

== ENCOUNTER 2019-07-03 09:33 | Emergency (ER) | payer MEDICARE, OTHER ==
[2019-07-03] MEDS ORDERED: NS 0.9% 1000 ML** 1,000 ML IV ONE (10:00)
[2019-07-03 10:13] LABS: ABS Lymphocytes 0.6 10^3/ul (1.0-4.8); ABS Monocytes 0.6 10^3/ul (0-0.8); ABS Neutrophils 5.4 10^3/ul (1.5-7.7); Eosinophil % 0.1 %; Hematocrit 41 % (35-47); Hemoglobin 13.8 g/dL (12.0-16.0); Mean Corpuscular HGB Conc 34 g/dL (31-36); Mean Corpuscular Hemoglobin 29 pg (27-31); Mean Corpuscular Volume 87 fL (80-97); Mean Platelet Volume 9.9 fL (7.4-10.4); Platelet Count 144 10^3/uL (150-450); Red Blood Count 4.74 10^6 /uL (3.70-4.87); Red Cell Distribution Width 15 % (10-15); White Blood Count 6.5 10^3/uL (3.5-10.8)
--- NOTE | 2019-07-03 10:14 | ED ---
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 She has not been able to keep any food or water down and constantly vomits it up. Her current pain severity is rated 0/10. No aggravating or alleviating factors noted. The notes that she frequently has UTIs. - History Of Current Complaint Chief Complaint: EDGeneral Time Seen by Provider: 07/03/19 09:52 Hx Obtained From: Patient Onset/Duration: Sudden Onset, Lasting Days, Still Present Timing: Constant, Days Severity Currently: None Severity Initially: Mild Aggravating Factor(s): nothing Alleviating Factor(s): nothing Associated Signs And Symptoms: Positive: Nausea, Vomiting, Other - pos - AMS - Allergies/Home Medications Allergies/Adverse Reactions: Allergies Allergy/AdvReac Type Severity Reaction Status Date / Time codeine Allergy Rash And Verified 07/03/19 08:46 Itching PMH/Surg Hx/FS Hx/Imm Hx Endocrine/Hematology History: Reports: Hx Anticoagulant Therapy - Aspirin Denies: Hx Diabetes, Hx Thyroid Disease Cardiovascular History: Reports: Hx Hypercholesterolemia Denies: Hx Congestive Heart Failure, Hx Deep Vein Thrombosis, Hx Hypertension , Hx Myocardial Infarction, Hx Pacemaker/ICD Respiratory History: Denies: Hx Asthma, Hx Chronic Obstructive Pulmonary Disease (COPD), Hx Lung Cancer, Hx Pneumonia, Hx Pulmonary Embolism GI History: Denies: Hx Gall Bladder Disease, Hx Gastrointestinal Bleed, Hx Ulcer, Hx Urosepsis History: Denies: Hx Dialysis, Hx Kidney Stones, Hx Renal Disease Musculoskeletal History: Reports: Hx Arthritis, Hx Osteoporosis, Other Musculoskeletal History - DDD Sensory History: Reports: Hx Contacts or Glasses, Hx Macular Degeneration Denies: Hx Hearing Aid Opthamlomology History: Reports: Hx Contacts or Glasses, Hx Macular Degeneration Neurological History: Reports: Hx CVA - multiple CVAs (two in 2003, 2005) with chronic residual symptoms, Other Neuro Impairments/Disorders - Parkinsons Denies: Hx Dementia, Hx Migraine, Hx Seizures, Hx Transient Ischemic Attacks (TIA) Psychiatric History: Reports: Hx Depression Denies: Hx Anxiety, Hx Panic Disorder, Hx Schizophrenia, Hx Bipolar Disorder - Surgical History Surgery Procedure, Year, and Place: CHOLECYSTECTOMY. LAP BAND SURGERY. spinal fusion Infectious Disease History: No Infectious Disease History: Denies: Hx Clostridium Difficile, Hx Hepatitis, Hx Human Immunodeficiency Virus (HIV), History Other Infectious Disease, Traveled Outside the [place] in Last 30 Days - Family History Known Family History: Positive: Other - Breast cancer - Social History Alcohol Use: None Alcohol Amount: beer occasionally Substance Use Type: Reports: None Smoking Status (MU): Former Smoker Review of Systems Positive: Vomiting, Nausea Neurological: Other - pos - AMS All Other Systems Reviewed And Are Negative: Yes Physical Exam - Summary Physical Exam Summary: Constitutional: Well-developed, Well-nourished, Alert. (-) Distressed Skin: Warm, Dry HENT: Normocephalic; Atraumatic Eyes: Conjunctiva normal Neck: Musculoskeletal ROM normal neck. (-) JVD, (-) Stridor, (-) Tracheal deviation Cardio: Rhythm regular, rate normal, Heart sounds normal; Intact distal pulses; Radial pulses are 2+ and symmetric. (-) Murmur Pulmonary/Chest wall: Effort normal. (-) Respiratory distress, (-) Wheezes, (-) Rales Abd: Soft, (-) tenderness, (-) Distension, (-) Guarding, (-) Rebound Musculoskeletal: (-) Edema Lymph: (-) Cervical adenopathy Neuro: Alert, Oriented x3 Psych: Mood and affect Normal Triage Information Reviewed: Yes Vital Signs On Initial Exam: Initial Vitals Temp Pulse Resp BP Pulse Ox 97.3 F 75 16 173/86 98 07/03/19 09:36 07/03/19 09:36 07/03/19 09:36 07/03/19 09:36 07/03/19 09:36 Vital Signs Reviewed: Yes Procedures - Sedation Patient Received Moderate/Deep Sedation with Procedure: No Diagnostics - Vital Signs Vital Signs Temp Pulse Resp BP Pulse Ox 07/03/19 09:52 74 19 166/85 97 07/03/19 09:50 75 18 96 07/03/19 09:36 97.3 F 75 16 173/86 98 - Laboratory Result Diagrams: 07/03/19 10:06 07/03/19 10:06 Lab Statement: Any lab studies that have been ordered have been reviewed, and results considered in the medical decision making process. Complex Multi-Symp Course/Dx Course Of Treatment: Patient is here with a UTI. Patient has dementia and has no symptoms or complaints per her at this time. Patient did have vomiting and diarrhea yesterday which has since stopped. Patient had a UA which showed UTI. Patient's prior UA shows Pseudomonas which is susceptible to levofloxacin. Patient is given a dose Rocephin and discharged on Levaquin. - Diagnoses Provider Diagnoses: UTI (urinary tract infection), Vomiting, Diarrhea Discharge ED - Sign-Out/Discharge Documenting (check all that apply): Patient Departure - discharge - Discharge Plan Condition: Stable Disposition: HOME Prescriptions: Levofloxacin TAB* [Levaquin 750 MG TAB*] 750 mg PO DAILY 5 Days #5 tab Patient Education Materials: Urinary Tract Infection in Women (ED) Referrals: Ezequiel Ruggiero MD [Primary Care Provider] - 3 Days Additional Instructions: Take your antibiotics as prescribed. Please follow up with your primary care physician within 3 days. Please return for any new or worsening symptoms. - Billing Disposition and Condition Condition: STABLE Disposition: Home - Attestation Statements Document Initiated by Jessiee: Yes Documenting Scribe: Mendoza Fitch Provider For Whom Barrett is Documenting (Include Credential): Bhavik Walton MD Scribe Attestation: Mendoza Jc, scribed for Bhavik Walton MD on 07/03/19 at 1431. Scribe Documentation Reviewed: Yes Provider Attestation: The documentation as recorded by the Mendoza kennedy accurately reflects the service I personally performed and the decisions made by , Bhavik Walton MD Status of Scribe Document: Viewed
[2019-07-03 10:29] LABS: ALT 20 U/L (7-52); AST 15 U/L (13-39); Albumin 3.9 g/dL (3.2-5.2); Albumin/Globulin Ratio 1.5 (1-3); Alkaline Phosphatase 118 U/L (34-104); Anion Gap 5 mmol/L (2-11); BUN/Creatinine Ratio 18.5 (8-20); Blood Urea Nitrogen 15 mg/dL (6-24); CO2 Carbon Dioxide 30 mmol/L (22-32); Chloride 107 mmol/L (101-111); EGFR African American 84.8 (>60); EGFR Non-African American 70.1 (>60); Globulin 2.6 g/dL (2-4); Glucose 92 mg/dL (70-100); Potassium 3.9 mmol/L (3.5-5.0); Sodium 142 mmol/L (135-145); Total Protein 6.5 g/dL (6.4-8.9)
[2019-07-03 11:17] LABS: Urine Appearance Cloudy; Urine Bilirubin Negative (Negative); Urine Blood Negative (Negative); Urine Color Amber; Urine Glucose Negative (Negative); Urine Ketones Negative (Negative); Urine Nitrite Positive (Negative); Urine Protein Negative (Negative); Urine Specific Gravity 1.025 (1.010-1.030); Urine Urobilinogen Negative (Negative)
[2019-07-03 11:19] LABS: Urine Bacteria 3+ (Absent); Urine Red Blood Cell Trace(0-2/hpf) (Absent); Urine Squamous Epithelial Cell Present (Absent); Urine White Blood Cell 2+(11-20/hpf) (Absent)
[2019-07-03] MEDS ORDERED: cefTRIAXone(*) 1 GM in NS 0.9% 50 ML* 50 ML IVPB ONE (11:30)
[2019-07-03 12:17] VITALS: BP 184/82
== END 2019-07-03 12:17 | disposition home or self-care (01) ==
LOC: ED 09:33
DX: N39.0 Urinary tract infection, site not specified (principal); R11.0 Nausea; R19.7 Diarrhea, unspecified; F03.90 Unspecified dementia, unspecified severity, without behavioral disturbance, psychotic disturbance, mood disturbance, and anxiety; Z88.5 Allergy status to narcotic agent; Z79.82 Long term (current) use of aspirin; Z87.891 Personal history of nicotine dependence
CPT/HCPCS: 36415; 80053; 81003; 81015; 83690; 85025; 87077; 87086; 87186; 96361; 96374; 99282; J0696

== ENCOUNTER 2019-09-07 16:07 | Emergency (ER) | payer MEDICARE, OTHER ==
--- OUTSIDE RECORDS SUMMARY | 2019-09-07 16:24 | XMS REPORT | Summary of Care ---
:1950 Author Organization [facility] Address [address] [place] [address] Care Team Providers Name Role Phone Bahman Ezequiel Castillo Primary Care Provider Moni Marte RN [facility] Web Page Developer Unavailable Reason for Visit Reason Comments Form Completion Form completion for home health aide services. 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 Cholecalciferol Take by 0 Active (VITAMIN D) 2000 mouth UNITS Oral Tab DAILY. B Complex Vitamins Take by 0 Active (VITAMIN B COMPLEX mouth PO) DAILY. atorvastatin Take 1 Tab 90 Tab 3 09/01/2017 Active (LIPITOR) 20 MG Oral by mouth TabIndications: DAILY. Hyperlipidemia, unspecified hyperlipidemia type escitalopram Take 1 Tab 90 Tab 3 09/01/2017 Active (LEXAPRO) 10 MG Oral by mouth Tab DAILY. carbidopa-levodopa Take 2 Tabs 0 Active (SINEMET) 25-100 MG by mouth Oral Tab THREE TIMES DAILY. Incontinence Supply 1 Each by 90 Each 0 10/20/2018 Active Disposable (PROCARE Does not ADULT BRIEFS apply route X-LARGE) Does not THREE TIMES apply Misc DAILY. buPROPion XL TAKE 1 90 Tab 1 08/03/2019 Active (WELLBUTRIN XL) 150 TABLET BY MG Oral TABLET SR 24 MOUTH EVERY HR 24 hour tablet DAY OXYcodone-acetaminop Take 1 Tab 10 Tab 0 12/03/2018 Discontinued hen (PERCOCET) 5-325 by mouth 0 (Error) MG Oral Tab EVERY SIX HOURS NEEDED (pain). Max Daily Amount: 4 Tabs. sulfamethoxazole-tri Take 1 Tab 14 Tab 0 05/13/2019 Discontinued methoprim (BACTRIM by mouth 0 (Error) DS, SEPTRA DS) TWICE 800-160 MG Oral Tab DAILY. sulfamethoxazole-tri Take 1 Tab 14 Tab 4 07/06/2019 Discontinued methoprim (BACTRIM by mouth 0 (Error) DS, SEPTRA DS) TWICE 800-160 MG Oral Tab DAILY. documented as of this encounter (statuses as of 09/05/2019) Active Problems Problem Noted Date Multi-infarct dementia without behavioral disturbance 07/29/2017 Normal pressure hydrocephalus 07/29/2017 Venous stasis dermatitis of both lower extremities 03/27/2016 Essential hypertension 10/27/2015 Endometrial polyp 07/19/2015 Overactive bladder 10/20/2014 Dyspnea on exertion 06/09/2008 Overview: Stress echocardiogram negative 05/27. Hyperparathyroidism 03/07/2008 Overview: Ca 10/PTH 1-6 02/24 at [facility] lab. Hypovitaminosis D 03/07/2008 Overview: Vit d 25 02/24. History of depression 08/17/2007 Overview: In remission 2013 Hyperlipidemia 08/17/2007 History of completed stroke 08/17/2007 Overview: Cerebrovascular accidents times 2-[facility] admission 2001 & 2003 Stress incontinence of urine 08/17/2007 Personal history of tobacco use, presenting hazards to health 08/17/2007 Calculus of gallbladder without mention of cholecystitis or obstruction 2007 Overview: Cholecystectomy performed Obesity, morbid 06/28/2007 Overview: S/p lap band surgery Dr Ol[facility] 01/24. documented as of this encounter (statuses as of 09/05/2019) Resolved Problems Problem Noted Date Resolved Date Rhabdomyolysis 10/27/2015 03/27/2016 Cellulitis of right leg 10/26/2015 03/27/2016 Frostbite 10/26/2015 09/05/2019 Generalized anxiety disorder 07/03/2015 03/27/2016 Long-Term (Current) Use of Anticoagulants 08/25/2007 03/22/2013 Overview: MANAGED BY [facility] REFERRED BY DR RUGGIERO. [facility] INR 2.0-3.0.FOR CVA Coumadin stopped 2007 Thickened endometrium 08/17/2007 03/22/2013 documented as of this encounter (statuses as of 09/05/2019) Immunizations Name Administration Dates Next Due Influenza (IM) Preservative Free 05/05/2008 Influenza Vaccine High Dose 05/09/2017 Influenza Vaccine Whole 05/06/2007 PNEUMOCOCCAL POLYSACCHARIDE VACCINE 09/05/2019, 05/06/2007 Pneumococcal Conjugate(13 Valent) 03/27/2016 documented as of this encounter Social History Tobacco Use Types Packs/Day Years Used Date Former Smoker Cigarettes 0 20 Quit: 07/20/2003 Smokeless Tobacco: Never Used Alcohol Use Drinks/Week oz/Week Comments Yes 1 Standard drinks or equivalent 1.0 OCC Sex Assigned at Date Recorded Not on file documented as of this encounter Last Filed Vital Signs Vital Sign Reading Time Taken Comments Blood Pressure 120/80 09/05/2019 11:24 AM EST Pulse 74 09/05/2019 11:24 AM EST Temperature - - Respiratory Rate - - Oxygen Saturation - - Inhaled Oxygen Concentration - - Weight 88 kg (194 lb) 09/05/2019 11:24 AM EST Height 160 cm (5' 3") 09/05/2019 11:24 AM EST Body Mass Index 34.37 09/05/2019 11:24 AM EST documented in this encounter Patient Instructions Patient InstructionsEzequiel Ruggiero MD - 09/05/2019 11:00 AM ESTPneumonia booster vaccine today Bactrim antibiotic on file at pharmacy for urinary tract infection if you need it Home care form filled out documented in this encounter Progress Notes Ezequiel Ruggiero MD - 09/05/2019 11:00 AM EST PATIENT: Tiera Forrest : 1950 DATE OF SERVICE: 09/05/2019 CHIEF COMPLAINT: Chief Complaint Patient presents with ? Form Completion Form completion for home health aide services. Subjective HISTORY OF PRESENT ILLNESS: Tiera Forrest is a 68-y.o. female. HPI Here with spouse who is primary caregiver he needs home care form filled out this was filled out andfaxed in No new clinical issues Past Medical History: Diagnosis Date ? Amenorrhea ? Cholelithiasis 08/17/2007 s/p cholecystectomy ? Depression 08/17/2007 ? Hernia, abdominal ? Hyperlipidemia 08/17/2007 ? Irregular uterine bleeding ? Parkinson's disease (HCC) 2017 ? Personal history of tobacco use, presenting hazards to health 08/17/2007 ? Postmenopausal ? Stroke/cerebrovascular accident (HCC) 08/17/2007 Cerebrovascular accident 2001 & 2003 ? Thickened endometrium 08/17/2007 ? Urinary Incontinence 08/17/2007 chronic since stroke in 2003 Family History Problem Relation Age of Onset ? Cancer Mother ? Breast Cancer Sister 40 Current Outpatient Medications Medication Sig ? aspirin 325 mg Oral Tab Take 325 mg by mouth DAILY. ? atorvastatin (LIPITOR) 20 MG Oral Tab Take 1 Tab by mouth DAILY. ? B Complex Vitamins (VITAMIN B COMPLEX PO) Take by mouth DAILY. ? buPROPion XL (WELLBUTRIN XL) 150 MG Oral TABLET SR 24 HR 24 hour tablet TAKE 1 TABLET BY MOUTH EVERY DAY ? carbidopa-levodopa (SINEMET) 25-100 MG Oral Tab Take 2 Tabs by mouth THREE TIMES DAILY. ? Cholecalciferol (VITAMIN D) 2000 UNITS Oral Tab Take by mouth DAILY. ? escitalopram (LEXAPRO) 10 MG Oral Tab Take 1 Tab by mouth DAILY. ? Incontinence Supply Disposable (PROCARE ADULT BRIEFS X-LARGE) Does not apply Misc 1 Each by Does not apply route THREE TIMES DAILY. No current facility-administered medications for this visit. Allergies Allergen Reactions ? Codeine Social History Socioeconomic History ? Marital status: Spouse name: Not on file ? Number of children: Not on file ? Years of education: Not on file ? Highest education level: Not on file Occupational History ? Not on file Social Needs ? Financial resource strain: Not on file ? Food insecurity Worry: Not on file Inability: Not on file ? Transportation needs Medical: Not on file Non-medical: Not on file Tobacco Use ? Smoking status: Former Smoker Packs/day: 0.00 Years: 20.00 Pack years: 0.00 Types: Cigarettes Last attempt to quit: 07/20/2003 Years since quittin.1 ? Smokeless tobacco: Never Used Substance and Sexual Activity ? Alcohol use: Yes Alcohol/week: 1.0 standard drinks Types: 1 Standard drinks or equivalent per week Comment: OCC ? Drug use: No ? Sexual activity: Never Lifestyle ? Physical activity Days per week: Not on file Minutes per session: Not on file ? Stress: Not on file Relationships ? Social connections Talks on phone: Not on file Gets together: Not on file Attends muslim service: Not on file Active member of club or organization: Not on file Attends meetings of clubs or organizations: Not on file Relationship status: Not on file ? Intimate partner violence Fear of current or ex partner: Not on file Emotionally abused: Not on file Physically abused: Not on file Forced sexual activity: Not on file Other Topics Concern ? Back Care Not Asked ? Bike Helmet Not Asked ? Blood Transfusions No ? Caffeine Concern No ? Exercise No ? Hobby Hazards Not Asked ? International Travel Not Asked ? Service Not Asked ? Occupational Exposure Not Asked ? Seat Belt Not Asked ? Self-Exams Not Asked ? Sleep Concern No ? Special Diet No ? Stress Concern No ? 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 Physical Exam no change in mental status poverty of speech I spent 15 minutes with the patient, greater than half of this time in direct [id number] counseling addressing the current condition and plan of care. ASSESSMENT / IMPRESSION: ICD-9-CM ICD-10-CM 1. Multi-infarct dementia without behavioral disturbance (HCC) 290.40 F01.50 2. Hypovitaminosis D 268.9 E55.9 3. Stress incontinence of urine [id number] N39.3 Patient Instructions Pneumonia booster vaccine today Bactrim antibiotic on file at pharmacy for urinary tract infection if you need it Home care form filled out : Ezequiel Ruggiero MD 09/05/2019 15:24 documented in this encounter Plan of Treatment Health Maintenance Due Date Last Done Comments MEDICARE ANNUAL WELLNESS 1950 VISIT DTaP/Tdap/Td Vaccines (1 - 1960 Tdap) DEPRESSION SCREENING 1961 ZOSTER IMMUNIZATION SERIES 09/30/1999 (1 of 2) FALL RISK ASSESSMENT 2014 LIPID DISORDER SCREENING 03/21/2015 03/21/2014, 03/22/2013, 05/05/2008, Additional history exists PNEUMOCOCCAL 65+YRS (2 of 2 03/27/2017 03/27/2016, 05/06/2007 - PPSV23) INFLUENZA VACCINE (#1) 2019 05/09/2017, 05/05/2008, 05/06/2007 DIABETES SCREENING 11/24/2019 11/23/2018, 11/23/2018, 07/29/2017, Additional history exists MAMMOGRAM (SCREENING) 09/01/2020 09/01/2019, 08/27/2018, 08/26/2017, Additional history exists OSTEOPOROSIS SCREENING 07/04/2024 07/04/2014, 03/22/2013 HEPATITIS A IMMUNIZATION Aged Out No longer eligible SERIES based on patient's age to complete this topic HPV IMMUNIZATION SERIES Aged Out No longer eligible based on patient's age to complete this topic MENINGOCOCCAL VACCINE IMM Aged Out No longer eligible based on patient's age to complete this topic documented as of this encounter Goals Goal Patient Goal Associated Recent Patient-Stated? Author Type Problems Progress Blood Pressure Blood Pressure 120/80 No Raymond, < 150/90 (09/05/2019 Sera, 11:24 AM EST) DYLAN Note: This is an individualized treatment (blood pressure) goal for Tiera Greenfield Rosemarydimitri: Displayed above (on the left) is your goal for blood pressure control. Your most recent blood pressure is also shown above, on the right. You should try to achieve blood pressures that are lower than your goal listed above (on the left). Weight loss vs. 18 mo Lifestyle 10.3 (09/05/2019 11:24 AM No Sera Andrade PA-C max (lbs) >= 10 EST) Note: This is an individualized lifestyle goal for Tiera Forrest: Your body mass index (BMI) is more than 30. You should lose weight. A reasonable starting goal is to lose 10 pounds. Displayed above is how many pounds you have lost thus far towards your 10 pound weight loss goal. Take all prescribed medications as Self-management Sera Flaherty PA-C directed Note: This is an individualized self-management goal for Tiera Forrest: Please take all prescribed medications as directed. 1. Do not skip doses. If you cannot afford your medications, talk with your doctor. 2. Use a pill reminder system such as a pill box if needed. Your pharmacist can help you with this. 3. Contact your Pharmacy 5 days before your medication runs out. If you cannot take your medications for any reasons, talk with your doctor. 4. Please bring all of your medication bottles and inhalers (or a list of all your medications/inhalers) with you to every visit. Potential barriers to meeting all of your care plan goals will continue to be addressed on an ongoing basis. documented as of this encounter Implants Implanted Type Area Smalltalk Developer Device Shelf Expiration Model / Identifier Date Serial / Lot Sns Lead - [id number] [employer] 03/19/2022 [id number] / Implanted: Qty: 1 on 12/03/2018 by Carmen Crum MD at [facility] / [address] [place] - [id number] [employer] 01/01/2020 [id number] / Implanted: Qty: 1 on 12/03/2018 by Carmen Crum MD at [facility] [id number] / documented as of this encounter Results Not on filedocumented in this encounter Visit Diagnoses Diagnosis Multi-infarct dementia without behavioral disturbance (HCC) Hypovitaminosis D Unspecified vitamin D deficiency Stress incontinence of urine documented in this encounter Insurance Payer Benefit Plan / Subscriber ID Effective Dates Phone Address Type Group UHC MEDICARE [employer] [id number] 2018-Present [facility] ADV[facility] MEDICARE ADVANTAGE documented as of this encounter Advance Directives Code Status Date Activated Date Inactivated Comments Full Code 10/26/2015 1:34 AM 10/27/2015 2:53 PM Does patient have decision making capacity? yes Order discussed with: Patient I discussed all options and patient/surrogate requested and agreed to: Full Code
--- OUTSIDE RECORDS SUMMARY | 2019-09-07 16:24 | XMS REPORT | Continuity of Care Document ---
:1950 External Reference #:[id number] Author Name Jose Daniel López M.D. Address [address] [place] [address] Care Team Providers Name Role Phone Ezequiel Ruggiero M.D. 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 - Neurology Care Team Information Seasonal Greenery Bundler Ranjith Sheth M.D. - Ophthalmology Care Team Information Seasonal [employer] Bundler Problems Active Problems Provider Date CVA - cerebrovascular accident due to Felice Hdez M.D. Onset: 03/30/2015 cerebral artery occlusion Hypercholesterolemia Felice Hdez M.D. Onset: 03/30/2015 Urinary incontinence Felice Hdez M.D. Onset: 03/30/2015 Arthritis Felice Hdez M.D. Onset: 03/30/2015 Nonexudative age-related macular degeneration Felice Hdez M.D. Onset: Nuclear senile cataract Felice Hdez M.D. Onset: 04/02/2015 Tear film insufficiency Felice Hdez M.D. 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 Onset: left eye Age-related exudative macular degeneration of Felice Hdez M.D. Onset: right eye Combined form of senile cataract Felice Hdez M.D. Onset: 04/28/2017 Retinal edema Felice Hdez M.D. Onset: 09/21/2017 Age-related nonexudative macular degeneration Felice Hdez M.D. 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 Onset: of macula Conjunctival hemorrhage Tiera Kaufman O.D. Onset: 07/08/2019 Social History Type Date Description Comments Sex Unknown ETOH Use Occasionally consumes alcohol Tobacco Use Start: Unknown End: Patient is a former smoker Unknown Recreational Drug Use Denies Drug Use Smoking Status Reviewed: 08/09/19 Patient is a former smoker Allergies, Adverse Reactions, Alerts Active Allergies Reaction Severity Comments Date Codeine 03/30/2015 Medications Active Medications SIG Qnty Indications Ordering Provider Date Preservision Areds 2 1 cap by mouth Felice Hdez, 04/28/2016 Areds twice a day M.D. 2 Capsules Atorvastatin Calcium Butts,[facility] 20mg M.D. Tablets Vitamin D Unknown 1000Unit Tablets Vitamin B 12 Unknown 100mcg Lozenges Bupropion HCL ER (XL) Butts,[facility] 150mg M.D. Tablets ER 24HR Sulfamethoxazole/Trimet Butts,[facility] hoprim DS M.D. 800-160mg Tablets Medications Administered in Office Medication SIG Qnty Indications Ordering Provider Date Avastin Bevacizumab Jose Daniel López M.D. 09/22/2018 Injection Avastin Bevacizumab Jose Daniel López M.D. 06/23/2018 Injection Avastin Bevacizumab Felice Hdez M.D. 04/12/2018 Injection Avastin Bevacizumab Felice Hdez M.D. 12/28/2017 Injection Avastin Bevacizumab Felice Hdez M.D. 10/26/2017 Injection Avastin Bevacizumab Felice Hdez M.D. 09/21/2017 Injection Avastin Bevacizumab Felice Hdez M.D. 08/10/2017 Injection Immunizations Description No Information Available Vital Signs Date Vital Result Comment 09/22/2018 1:38pm BP Systolic 160 mmHg BP Diastolic 91 mmHg Heart Rate 61 /min 06/23/2018 11:36am BP Systolic 133 mmHg BP Diastolic 82 mmHg Heart Rate 72 /min Respiratory Rate 16 /min Results Description No Information Available Procedures Description No Information Available Medical Devices Description No Information Available Encounters Type Date Location Provider Dx Diagnosis Office Visit 07/08/2019 Felice Hdez, Tiera Kaufman, H11.32 Conjunctival 2:00p , pc O.D. hemorrhage, left eye H35.3112 Nexdtve age-related mclr degn, right eye, intermed dry stage H35.3222 Exdtve age-rel mclr degn, left eye, with inact chrdl neovas Assessments Date Code Description Provider 08/09/2019 H35.3222 Exudative age-related macular Jose Daniel López M.D. degeneration, left eye, with i 08/09/2019 H35.3112 Nonexudative age-related macular Jose Daniel López M.D. degeneration, right eye, in 08/09/2019 H25.13 Age-related nuclear cataract, bilateral Jose Daniel López M.D. 07/08/2019 H11.32 Conjunctival hemorrhage, left eye Tiera Kaufman O.D. 07/08/2019 H35.3112 Nonexudative age-related macular Tiera Kaufman O.D. degeneration, right eye, in 07/08/2019 H35.3222 Exudative age-related macular Tiera Kaufman O.D. degeneration, left eye, with i Plan of Treatment 08/09/2019 - Jose Daniel López M.D.H35.3222 Exudative age-related macular degeneration, left eye, with iComments:Smoking can increase the risk of developing or worsening any eye related disease, as well as affect your overall health. If you are a smoker, we strongly recommend that you quit.If you are not a smoker, we strongly recommend that you do not start. The wet Macular Degeneration in your left eye appears to be inactive at this time. Continue to monitor your vision, with each eye separately. Use your Amsler Grid and continue taking the AREDS 2 Formula Vitamins. If you notice any changes in your vision before your next appointment, please call the office at to schedule an appointment.Follow up:6 Month Follow Up DFE, OCT MAC You can expect to have your eyes dilated at your next visit. If Dr. López orders any additional testing, it may require extra time. We recommend that you bring sunglasses, as dilation drops often make you light sensitive until they wear off. We always recommend you bring someone to drive you home if you are uncomfortable driving with your eyes dilated. If you have any questions before your next visit, feel free to call our office at .H35.3112 Nonexudative age-related macular degeneration, right eye, inComments:You have Macular Degeneration. Check your Amsler Grid, with each eye separately, and take the AREDS II formula vitamins. If you notice any changes in your vision, please call the office and schedule anappointment to see any of the doctors here.H25.13 Age-related nuclear cataract, bilateralComments:You have been diagnosed with cataracts. If you are happy with your vision as it is now, then we willsee you at your next scheduled appointment. If you feel like your vision is getting worse before your scheduled appointment, please call Lora at . Functional Status Description No Information Available Mental Status Description No Information Available Referrals Description No Information Available
[2019-09-07 17:35] LABS: ABS Lymphocytes 0.4 10^3/ul (1.0-4.8); ABS Monocytes 0.5 10^3/ul (0-0.8); ABS Neutrophils 5.2 10^3/ul (1.5-7.7); Eosinophil % 0.5 %; Hematocrit 41 % (35-47); Hemoglobin 13.6 g/dL (12.0-16.0); Lymphocyte % 7.1 %; Mean Corpuscular HGB Conc 33 g/dL (31-36); Mean Corpuscular Hemoglobin 29 pg (27-31); Mean Corpuscular Volume 86 fL (80-97); Mean Platelet Volume 10.4 fL (7.4-10.4); Platelet Count 138 10^3/uL (150-450); Red Blood Count 4.76 10^6 /uL (3.70-4.87); Red Cell Distribution Width 16 % (10-15); White Blood Count 6.1 10^3/uL (3.5-10.8)
--- NOTE | 2019-09-07 17:47 | ED ---
Altered Mental Status - HPI Summary HPI Summary: This pt is a 68 Y/O F presenting to [facility] with a CC of an AMS. Her states that the pt has a Hx of frequent UTIs and Dementia. He states that the pt has become unable to ambulate due to her confusion. He states that she has been very fatigued and dehydrated since yesterday at 1500 09/06/2019. She is a level 5 caveat due to her AMS and baseline dementia. Her states that the pt is completely incontinent due to a back injury. He has given her APAP and Bactrim prior to arrival. 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 Last Known Well Date: 145809/06/2019 Onset/Duration: Still Present Timing: Constant Severity Initially: Moderate Severity Currently: Moderate Character: Confusion Aggravating Factor(s): Other - Possible UTI per Alleviating Factor(s): Nothing - Allergies/Home Medications Allergies/Adverse Reactions: Allergies Allergy/AdvReac Type Severity Reaction Status Date / Time codeine Allergy Rash And Verified 09/07/19 16:17 Itching Home Medications: Home Medications BuPROPion XL* [Bupropion XL*] 150 mg PO DAILY 02/26/18 [History Confirmed ] Vit A/Vit C/Vit E/Zinc/Copper [Preservision Areds Softgel] 1 each PO BID [History Confirmed 09/07/19] Acetaminophen TAB* [Tylenol TAB*] 650 mg PO Q6H PRN #30 tab 03/07/18 [Rx Confirmed 09/07/19] Aspirin 81 mg CHEW TAB* 81 mg PO DAILY #30 tab.chew 03/07/18 [Rx Confirmed 09/07] Carbidopa/Levodop 25/100 MG(*) [Sinemet 25/100 TAB(*)] 1 tab PO BEDTIME [History Confirmed 09/07/19] Carbidopa/Levodop 25/100 MG(*) [Sinemet 25/100 TAB(*)] 1 tab PO QPM 09/07/19 [ History Confirmed 09/07/19] Carbidopa/Levodop 25/100 MG(*) [Sinemet 25/100 TAB(*)] 2 tab PO QAM 09/07/19 [ History Confirmed 09/07/19] Memantine TAB* [Namenda TAB*] 10 mg PO BID 09/07/19 [History Confirmed 09/07/19] Sulfamethox/Trimethoprim DS* [Bactrim DS 800/160 TAB*] 1 tab PO BID 09/07/19 [ History Confirmed 09/07/19] PMH/Surg Hx/FS Hx/Imm Hx Previously Healthy: No - A FULL PMHX IS UNOBTAINABLE DUE TO THE PT'S BASELINE AND AMS. Endocrine/Hematology History: Reports: Hx Anticoagulant Therapy - Aspirin Denies: Hx Diabetes, Hx Thyroid Disease Cardiovascular History: Reports: Hx Hypercholesterolemia Denies: Hx Congestive Heart Failure, Hx Deep Vein Thrombosis, Hx Hypertension , Hx Myocardial Infarction, Hx Pacemaker/ICD Respiratory History: Denies: Hx Asthma, Hx Chronic Obstructive Pulmonary Disease (COPD), Hx Lung Cancer, Hx Pneumonia, Hx Pulmonary Embolism GI History: Denies: Hx Gall Bladder Disease, Hx Gastrointestinal Bleed, Hx Ulcer, Hx Urosepsis History: Denies: Hx Dialysis, Hx Kidney Stones, Hx Renal Disease Musculoskeletal History: Reports: Hx Arthritis, Hx Osteoporosis, Other Musculoskeletal History - DDD Sensory History: Reports: Hx Contacts or Glasses, Hx Macular Degeneration Denies: Hx Hearing Aid Opthamlomology History: Reports: Hx Contacts or Glasses, Hx Macular Degeneration Neurological History: Reports: Hx CVA - multiple CVAs (two in 2003, 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 LAP BAND SURGERY. spinal fusion - Immunization History Immunizations Up to Date: Yes Infectious Disease History: No Infectious Disease History: Denies: Hx Clostridium Difficile, Hx Hepatitis, Hx Human Immunodeficiency Virus (HIV), History Other Infectious Disease, Traveled Outside the [place] in Last 30 Days - Family History Known Family History: Positive: Other - Breast cancer - Social History Occupation: Disabled Lives: With Family Alcohol Use: None Alcohol Amount: beer occasionally Hx Substance Use: No Substance Use Type: Reports: None Hx Tobacco Use: Yes Smoking Status (MU): Former Smoker Review of Systems - ROS Summary Review of Systems Summary: A FULL ROS IS UNOBTAINABLE DUE TO THE PT'S BASELINE MENTAL STATUS OF DEMENTIA AND HER AMS. Neurological/Mental Status: Other - AMS All Other Systems Reviewed And Are Negative: No Physical Exam - Summary Physical Exam Summary: Constitutional: Elderly, NAD. Skin: Warm, Dry HENT: Normocephalic; Atraumatic Eyes: Conjunctiva normal Neck: Musculoskeletal ROM normal neck. (-) JVD, (-) Stridor Cardio: Rhythm regular, rate normal, Heart sounds normal; Intact distal pulses; Radial pulses are 2+ and symmetric. (-) Murmur Pulmonary/Chest wall: Effort normal. (-) Respiratory distress, (-) Wheezes, (-) Rales Abd: Soft, (-) tenderness, (-) Distension, (-) Guarding, (-) Rebound Musculoskeletal: (-) Edema, no LE tenderness. No CTL tenderness. Lymph: (-) Cervical adenopathy Neuro: AAOx2, disoriented to time, gait deferred. Moving all extremities. strength 4/5 LE. GCS 14 Psych: Mood and affect Normal Triage Information Reviewed: Yes Vital Signs On Initial Exam: Initial Vitals Temp Pulse Resp BP Pulse Ox 99 F 92 20 152/81 95 09/07/19 16:13 09/07/19 16:13 09/07/19 16:13 09/07/19 16:13 09/07/19 16:13 Vital Signs Reviewed: Yes - [place] Coma Scale Best Eye Response: 4 - Spontaneous Best Motor Response: 6 - Obeys Commands Best Verbal Response: 4 - Confused Coma Scale Total: 14 Procedures - Sedation Patient Received Moderate/Deep Sedation with Procedure: No Diagnostics - Vital Signs Vital Signs Temp Pulse Resp BP Pulse Ox 09/07/19 17:13 83 21 144/79 93 09/07/19 17:12 84 19 94 09/07/19 16:13 99 F 92 20 152/81 95 - Laboratory Lab Results: Lab Results 09/07/19 Range/Units 17:23 WBC 6.1 (3.5-10.8) 10^3/uL RBC 4.76 (3.70-4.87) 10^6 /uL Hgb 13.6 (12.0-16.0) g/dL Hct 41 (35-47) % MCV 86 (80-97) fL MCH 29 (27-31) pg MCHC 33 (31-36) g/dL RDW 16 H (10-15) % Plt Count 138 L (150-450) 10^3/uL MPV 10.4 (7.4-10.4) fL Neut % (Auto) 84.5 % Lymph % (Auto) 7.1 % Tift % (Auto) 7.5 % Eos % (Auto) 0.5 % Baso % (Auto) 0.4 % Absolute Neuts (auto) 5.2 (1.5-7.7) 10^3/ul Absolute Lymphs (auto) 0.4 L (1.0-4.8) 10^3/ul Absolute Monos (auto) 0.5 (0-0.8) 10^3/ul Absolute Eos (auto) 0.0 (0-0.6) 10^3/ul Absolute Basos (auto) 0.0 (0-0.2) 10^3/ul Absolute Nucleated RBC 0.0 10^3/ul Nucleated RBC % 0.0 Result Diagrams: 09/07/19 17:23 09/07/19 17:23 Lab Statement: Any lab studies that have been ordered have been reviewed, and results considered in the medical decision making process. - Radiology CXR Radiology Interpretation Completed By: ED Physician Summary of Radiographic Findings: No acute processes. Pending offical review. Re-Evaluation - Re-Evaluation First Eval Re-Evaluation Time: 18:20 Change: Unchanged Comment: Pt's urine is negative for a UTI and a brain CT will be collected. Second Eval Re-Evaluation Time: 20:32 Comment: patient ambulated well in the ED. will plan for discharge Third Eval Re-Evaluation Time: 21:30 Comment: I have discussed results with the patient and family. Symptoms have resolved. Discussed symptoms that warrant immediate return to ED. Altered Mental Statu Course/Dx - Course Course Of Treatment: 68 y/o F w hx dementia, chronic back pain (ambulates w walker), frequent UTIs p/w weakness. - VSS NAD. PE well appearing. concerned about UTI, UA negative. - CXR neg for PNA, labs w/o e/o of infection. Patient does not appear altered more than baseline but given possible weakness w/o infectious cause, CT brain ordered. -family concerned about dehydration, given IVF. Pending CT, will try to ambulate. This pt is a sign out to Dr. Emely Castillo MD by Dr. Lillian Del Real MD pending a Brain CT and disposition. - Diagnoses Provider Diagnoses: Weakness, Headache, Dehydration Discharge ED - Sign-Out/Discharge Documenting (check all that apply): Sign-Out Patient Signing out patient TO: Emely Castillo - Discharge Plan Condition: Stable Disposition: HOME Patient Education Materials: Dehydration (ED), Weakness (ED), General Headache (ED) Referrals: Ezequiel Ruggiero MD [Primary Care Provider] - 3 Days Additional Instructions: Please follow up with your primary care physician within 3 days. Please return to Emergency Department for any new or worsening symptoms. - Billing Disposition and Condition Condition: STABLE Disposition: Home - Attestation Statements Document Initiated by Scribe: Yes Documenting Scribe: Moise Vuong Provider For Whom Scribe is Documenting (Include Credential): Lillian Del Real MD Scribe Attestation: I, Moise Vuong, scribed for Lillian Del Real MD on 09/08/19 at 0712. Scribe Documentation Reviewed: Yes Provider Attestation: The documentation as recorded by the scribeMoise accurately reflects the service I personally performed and the decisions made by me, Lillian Del Real MD Status of Scribe Document: Viewed
[2019-09-07 17:52] LABS: Albumin 4.3 g/dL (3.2-5.2); Albumin/Globulin Ratio 1.6 (1-3); BUN/Creatinine Ratio 18.4 (8-20); Calcium 10.6 mg/dL (8.6-10.3); EGFR African American 78.1 (>60); EGFR Non-African American 64.6 (>60); Globulin 2.7 g/dL (2-4); Potassium 3.8 mmol/L (3.5-5.0)
[2019-09-07 18:00] LABS: Urine Appearance Clear; Urine Bilirubin Negative (Negative); Urine Blood Negative (Negative); Urine Color Yellow; Urine Glucose Negative (Negative); Urine Ketones Trace (Negative); Urine Nitrite Negative (Negative); Urine Protein Negative (Negative); Urine Specific Gravity 1.025 (1.010-1.030); Urine Urobilinogen Negative (Negative)
[2019-09-07] MEDS ORDERED: NS 0.9% 1000 ML** 1,000 ML IV ONE (18:19)
--- NOTE | 2019-09-07 19:20 | ED ---
Progress - Progress Note Progress Note: Patient signed out from Dr. Del Real upon shift change 09/07/[address] Brain and pending disposition. CT Brain shows, per radiologist: No acute intracranial abnormality. Chronic microvascular ischemic changes. ED physician has reviewed this imaging report. Re-Evaluation - Re-Evaluation First Eval Re-Evaluation Time: 20:21 Comment: patient requesting Tylenol. will try to ambulate patient in ED Second Eval Re-Evaluation Time: 20:32 Comment: patient ambulated well in the ED. will plan for discharge Third Eval Re-Evaluation Time: 21:30 Comment: I have discussed results with the patient and family. Symptoms have resolved. Discussed symptoms that warrant immediate return to ED. Course/Dx - Course Course Of Treatment: 68 year old female signed out at change of shift to ia with weakness. In the ED course, patient was given Tylenol. for headache. fluids. was able to ambulate with walker. urine without infection. patient discharged to home with family. - Diagnoses Provider Diagnoses: Weakness, Headache, Dehydration Discharge ED - Sign-Out/Discharge Documenting (check all that apply): Patient Departure, Receiving Sign-Out Receiving patient FROM: Lillian Del Real - Discharge Plan Condition: Stable Disposition: HOME Patient Education Materials: Dehydration (ED), Weakness (ED), General Headache (ED) Referrals: Ezequiel Ruggiero MD [Primary Care Provider] - 3 Days Additional Instructions: Please follow up with your primary care physician within 3 days. Please return to Emergency Department for any new or worsening symptoms. - Billing Disposition and Condition Condition: STABLE Disposition: Home - Attestation Statements Document Initiated by Tammyibe: Yes Documenting Scribe: Natalya Montejo Provider For Whom Barrett is Documenting (Include Credential): Emely Castillo MD Scribe Attestation: Babita, Natalya Montejo, scribed for Emely Castillo MD on 09/08/19 at 0051. Scribe Documentation Reviewed: Yes Provider Attestation: The documentation as recorded by the tammyibNatalya killian accurately reflects the service I personally performed and the decisions made by me, Emely Castillo MD Status of Scribe Document: Viewed
[2019-09-07] MEDS ORDERED: Acetaminophen TAB* 325 MG PO ONE (20:21)
[2019-09-07 21:59] VITALS: BP 155/67
== END 2019-09-07 21:50 | disposition home or self-care (01) ==
LOC: ED 16:07
DX: E86.0 Dehydration (principal); F03.90 Unspecified dementia, unspecified severity, without behavioral disturbance, psychotic disturbance, mood disturbance, and anxiety; R32 Unspecified urinary incontinence; E78.00 Pure hypercholesterolemia, unspecified; F32.9 Major depressive disorder, single episode, unspecified; Z90.49 Acquired absence of other specified parts of digestive tract; Z98.84 Bariatric surgery status; Z87.891 Personal history of nicotine dependence; Z79.82 Long term (current) use of aspirin; Z79.899 Other long term (current) drug therapy; Z88.5 Allergy status to narcotic agent
CPT/HCPCS: 36415; 70450; 71045; 80053; 81003; 85025; 96360; 99284; A9270-GY

== ENCOUNTER 2020-03-01 13:57 | Observation (INO) ==
[2020-03-01] MEDS ORDERED: NS 0.9% 1000 ml BAG 1,000 ML IV ONE ×2 (14:05→14:32)
[2020-03-01 14:24] LABS: ABS Eosinophils 0.1 10^3/ul (0-0.6); ABS Lymphocytes 1.2 10^3/ul (1.0-4.8); ABS Monocytes 0.4 10^3/ul (0-0.8); ABS Neutrophils 3.7 10^3/ul (1.5-7.7); Eosinophil % 1.6 %; Hematocrit 41 % (35-47); Hemoglobin 13.8 g/dL (12.0-16.0); Lymphocyte % 21.4 %; Mean Corpuscular HGB Conc 33 g/dL (31-36); Mean Corpuscular Hemoglobin 29 pg (27-31); Mean Corpuscular Volume 88 fL (80-97); Nucleated Red Blood Cells % 0.1; Platelet Count 159 10^3/uL (150-450); Red Blood Count 4.71 10^6 /uL (3.70-4.87); Red Cell Distribution Width 14 % (10-15); White Blood Count 5.4 10^3/uL (3.5-10.8)
[2020-03-01 14:41] LABS: Activated Partial Thrombo Time 30.4 seconds (26.0-38.0); INR 0.94 (0.82-1.09)
[2020-03-01 14:44] LABS: Albumin 4.1 g/dL (3.2-5.2); Albumin/Globulin Ratio 1.5 (1-3); BUN/Creatinine Ratio 21.4 (8-20); Calcium 10.4 mg/dL (8.6-10.3); EGFR African American 81.1 (>60); Globulin 2.8 g/dL (2-4); HDL Cholesterol 62.4 mg/dL; Potassium 4.1 mmol/L (3.5-5.0); Total Bilirubin 0.6 mg/dL (0.2-1.0); Total Protein 6.9 g/dL (6.4-8.9)
[2020-03-01] MEDS ORDERED: Iohexol 350 (CONTRAST) 500 ML MDV IV ONE (14:47)
[2020-03-01] MEDS: Carbidopa/Levodop 25/100 MG TAB PO SCH (20:32)
[2020-03-01 20:50] LABS: Urine Appearance Cloudy; Urine Bilirubin Negative (Negative); Urine Blood Negative (Negative); Urine Color Yellow; Urine Glucose Negative (Negative); Urine Ketones Negative (Negative); Urine Nitrite Positive (Negative); Urine Protein Negative (Negative); Urine Specific Gravity 1.055 (1.010-1.030); Urine Urobilinogen Negative (Negative)
[2020-03-01 20:55] LABS: Urine Bacteria 3+ (Absent); Urine Red Blood Cell 3+(>10/hpf) (Absent); Urine Squamous Epithelial Cell Present (Absent); Urine White Blood Cell Trace(0-5/hpf) (Absent)
[2020-03-02 07:05] LABS: ABS Eosinophils 0.1 10^3/ul (0-0.6); ABS Lymphocytes 1.1 10^3/ul (1.0-4.8); ABS Monocytes 0.4 10^3/ul (0-0.8); ABS Neutrophils 3.1 10^3/ul (1.5-7.7); Eosinophil % 2.3 %; Hematocrit 36 % (35-47); Hemoglobin 12.3 g/dL (12.0-16.0); Lymphocyte % 23.5 %; Mean Corpuscular HGB Conc 34 g/dL (31-36); Mean Corpuscular Hemoglobin 30 pg (27-31); Mean Corpuscular Volume 87 fL (80-97); Mean Platelet Volume 10.2 fL (7.4-10.4); Platelet Count 138 10^3/uL (150-450); Red Blood Count 4.15 10^6 /uL (3.70-4.87); Red Cell Distribution Width 14 % (10-15); White Blood Count 4.7 10^3/uL (3.5-10.8)
[2020-03-02 07:25] LABS: BUN/Creatinine Ratio 21.4 (8-20); Calcium 9.2 mg/dL (8.6-10.3); EGFR African American 100.1 (>60); EGFR Non-African American 82.7 (>60); Potassium 3.7 mmol/L (3.5-5.0)
[2020-03-02] MEDS: Carbidopa/Levodop 25/100 MG TAB PO SCH ×2 (08:31→13:11)
[2020-03-02] MEDS ORDERED: Cholecalciferol (VIT D3) 1,000 unit TAB PO SCH (09:00)
[2020-03-02] MEDS ORDERED: Aspirin EC 81 mg TAB.EC (enteric coated) PO SCH (09:00)
[2020-03-02 15:56] VITALS: BP 154/67
== END 2020-03-02 17:25 | disposition home or self-care (01) ==
LOC: MEDTELE 13:57 → ED 13:57 → MEDTELE 17:27
PROVIDERS: ADMIT Internal Medicine; ATTEND Internal Medicine